=== PATIENT | male | born 1955 | race Caucasian/White ===

== ENCOUNTER → 2021-02-05 14:37 | Outpatient (CLI) | payer OTHER, SELFPAY ==
[2021-02-05 15:41] LABS: INR 1.5 (0.9-1.3); Prothrombin Time 16.8 SECONDS (10.1-12.7)
[2021-02-05 15:44] LABS: PTT Partial Thromboplastin Tim 42 SECONDS (26.4-36.2)
[2021-02-05 16:26] LABS: Alanine Aminotransferase 46 IU/L (<50); Albumin 4.7 g/dL (3.5-5.0); Albumin Globulin Ratio 1.7 (1.0-2.8); Alkaline Phosphatase 90 U/L (38-126); Aspartate Aminotransferase 43 IU/L (17-59); BUN Creatinine Ratio 21.2 (6-22); Bilirubin Total 0.6 mg/dL (0.2-1.3); Blood Urea Nitrogen 21 mg/dL (9-20); Calcium 9.9 mg/dL (8.4-10.2); Carbon Dioxide 28 mmol/L (22-32); Chloride 101 mmol/L (98-107); Cholesterol 160 mg/dL (140-199); Estimated Glomerular Filt Rate > 60.0 mL/min (>60); Globulin 2.7 g/dL (1.7-4.1); Glucose 94 mg/dL (80-110); HDL Cholesterol 48 mg/dL (40-60); HEMOLYSIS < 15 (0-50); LDL Cholesterol Calculated 86 mg/dL (<100); Potassium 4.4 mmol/L (3.4-5.1); Sodium 139 mmol/L (137-145); Total Protein 7.4 g/dL (6.3-8.2); Triglycerides 130 mg/dL (35-150)
[2021-02-05 16:32] LABS: Hemoglobin A1C% w Est Avg Glu 5.4 % (4.0-6.0)
[2021-02-05 18:22] LABS: Creatinine Urine Random 96.8 mg/dL
[2021-02-05 18:30] LABS: Microalbumin Urine Random < 0.6 mg/dL (0-1.6)
[2021-02-11 12:39] LABS: Antithrombin Activity 120 % (75-135); Antithrombin Antigen 89 % (72-124); Protein C-Functional 125 % (73-180)
[2021-02-16 11:26] LABS: Cardiolipin IgA Negative
== END ==
PROVIDERS: PCP Family Medicine; Referring Provider Family Medicine; Visit Provider Family Medicine
DX: E78.5 Hyperlipidemia, unspecified (principal); I10 Essential (primary) hypertension; I82.419 Acute embolism and thrombosis of unspecified femoral vein
CPT/HCPCS: 36415; 80053; 80061; 81241; 82043; 82570; 83036; 83520; 85300; 85301; 85303; 85610; 85730; 86147

== ENCOUNTER 2021-04-04 09:25 | Emergency (ER) | payer OTHER, SELFPAY ==
[2021-04-04 09:45] VITALS: BP 170/95; PULSE 73; RESP 16; TEMP 36.6; O2SAT 96
[2021-04-04] MEDS: ONDANSETRON 4 MG/2 ML INJ IV ×2 (09:52→11:19)
[2021-04-04] MEDS: SODIUM CHLORIDE 0.9% 1,000 ML 1000 ML IV (09:52)
[2021-04-04 10:06] LABS: INR 1.5 (0.9-1.3); Prothrombin Time 16.8 SECONDS (10.1-12.7)
[2021-04-04 10:09] LABS: PTT Partial Thromboplastin Tim 41 SECONDS (26.4-36.2)
[2021-04-04] MEDS: LIDOCAINE 2% 7 ML in SODIUM CHLORIDE 0.9% 50 ML 342 ML IV (10:10)
[2021-04-04 10:12] LABS: Alanine Aminotransferase 39 IU/L (<50); Albumin 4.5 g/dL (3.5-5.0); Albumin Globulin Ratio 1.6 (1.0-2.8); Alkaline Phosphatase 77 U/L (38-126); Aspartate Aminotransferase 38 IU/L (17-59); BUN Creatinine Ratio 21.4 (6-22); Bilirubin Total 0.6 mg/dL (0.2-1.3); Blood Urea Nitrogen 24 mg/dL (9-20); Calcium 9.2 mg/dL (8.4-10.2); Carbon Dioxide 23 mmol/L (22-32); Chloride 108 mmol/L (98-107); Estimated Glomerular Filt Rate > 60.0 mL/min (>60); Globulin 2.8 g/dL (1.7-4.1); Glucose 116 mg/dL (80-110); HEMOLYSIS < 15 (0-50); Lipase 123 U/L (23-300); Potassium 4.4 mmol/L (3.4-5.1); Sodium 140 mmol/L (137-145); Total Protein 7.3 g/dL (6.3-8.2)
[2021-04-04 10:13] LABS: Add Manual Diff / Slide Review NO; Basophils Absolute Auto 100 /uL (0-100); Basophils Percent Auto 0.9 % (0-2); Eosinophils Absolute Auto 300 /uL (0-450); Eosinophils Percent Auto 4.2 % (2-4); Hematocrit 42.6 % (41-53); Hemoglobin 14.5 g/dL (13.5-17.5); Lymphocytes Absolute Auto 1300 /uL (1100-4500); Lymphocytes Percent Auto 20.7 % (25-40); Mean Corpuscular Volume 100.1 fL (80-100); Monocytes Absolute Auto 600 /uL (0-900); Monocytes Percent Auto 9.1 % (3-14); Neutrophils Absolute Auto 4200 /uL (1500-7000); Neutrophils Percent Auto 65.1 % (50-75); Platelet Count 206 X10^3/uL (150-400); Red Blood Cell Count 4.25 X10^6/uL (4.5-5.9); Red Cell Distribution Width 12.8 % (11.6-14.8); White Blood Cell Count 6.5 X10^3/uL (4.5-11.0)
[2021-04-04] MEDS: HYDROMORPHONE 0.5 MG INJ IV ×2 (11:18→12:39)
--- NOTE | 2021-04-04 11:42 | DI.CT.S_ITS ---
PROCEDURE: CT KIDNEY URETER BLADDER (KUB) INDICATIONS: kidney stone TECHNIQUE: Noncontrast 5 mm thick sections acquired from the diaphragms to the symphysis. 5 mm thick coronal and sagittal reformats were then performed. For radiation dose reduction, the following was used: automated exposure control, adjustment of mA and/or kV according to patient size. COMPARISON: None. FINDINGS: Image quality: Excellent. Lung bases: Lung bases are clear. Heart size is normal. Urinary system: There is a 3 mm obstructing stone seen involving the left ureterovesicular junction. There is associated moderate left-sided hydroureter and hydronephrosis. Moderate left-sided perinephric fat stranding is seen. Nonobstructing bilateral renal stones are seen, which measure up to 6 mm on the left and up to 2 mm on the right. No right-sided hydronephrosis is seen. Both kidneys are normal in size. Bladder wall thickness is normal; no calcified bladder stones. Other solid organs: Liver is normal in size. Gallbladder wall is not thickened. Pancreas is normal in contours. Spleen is normal in size. No adrenal nodules. Peritoneum and bowel: Unenhanced bowel loops demonstrate normal wall thickness and caliber. No free fluid or air. A normal appendix is incidentally noted. Nodes and vessels: No retroperitoneal or mesenteric adenopathy by size criteria. Aorta and inferior vena cava are normal in caliber. Abdominal wall: A mild periumbilical hernia is seen, containing fat. Pelvis: No free pelvic fluid. No inguinal adenopathy. Bilateral fat containing inguinal hernias are seen, right larger than left. Bones: No suspicious bony lesions. No vertebral body compression fractures. Mild levoconvex scoliotic curvature is noted. Age-appropriate bony degenerative changes are seen. This patient has transitional lumbar anatomy. For the purposes of this examination, the level with the last well-developed disc space is considered to be L5-S1. By this numbering, the L5 level is transitional and highly sacralized on the left side. No ribs are seen associated with the T12 level. IMPRESSION: 3 mm obstructing stone at the left ureterovesicular junction. There is moderate left-sided hydroureter and hydronephrosis. Left-sided perinephric fat stranding is also seen. Nonobstructing bilateral renal stones are seen. 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 Dictated by: Low Bejarano M.D. on 04/04/2021 at 12:19 Approved by: Low Bejarano M.D. on 04/04/2021 at 12:24
--- NOTE | 2021-04-04 12:16 | ED.MALEGU ---
HPI - Male Genitourinary General Chief complaint: Urogenital-Male Stated complaint: kidney stones Time Seen by Provider: 04/04/21 11:56 Source: patient and family () Mode of arrival: Ambulatory Limitations: no limitations History of Present Illness HPI Narrative: This is a 66-year-old male who comes in with left flank pain radiating to the abdomen that started overnight suddenly patient has a history of hypertension, dyslipidemia and is on Xarelto for DVT that was diagnosed show about a month and a half ago. 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 Patient also states he had had a groin pull about 6 months prior and had significant ecchymosis and bruising at that time which he suspected was likely cause. This was in his right lower extremity. Patient is not having any pain in his left lower extremity today. Patient states that he has been afebrile. He has nausea and vomiting with his peak pain or when he tried to take being drink of water. Patient states he is not nauseated at this time. He had some pain medication here in the department including lidocaine followed by Dilaudid which has improved his pain but he occasionally has waves to level 5 intermittently. Patient denies any testicular pain. He denies any pain radiating down his leg. Patient denies any issues with bowel movements. He denies any new urinary symptoms otherwise. Patient states he has had kidney stones in the past 5-10 years ago intermittently. He he has not had any prior surgical intervention. He has never followed with urologist. He sees Dr. Duran for his primary care. Related Data Home Medications Medication Instructions Recorded Confirmed atorvastatin 40 mg tablet 40 mg PO QPM 11/27/20 02/26/21 vit C 250 mg-vit E 200 unit-zinc cap PO 11/27/20 02/26/21 ox 12.5 xq-ascoyk-awyeln-zeax capsule rivaroxaban 15 mg tablet 15 mg PO DAILY 02/05/21 02/26/21 Previous Rx's Medication Instructions Recorded lisinopril 20 1 tab PO DAILY #90 tab 11/27/20 mg-hydrochlorothiazide 12.5 mg tablet pantoprazole 40 mg tablet,delayed 40 mg PO DAILY #30 tab 01/22/21 release rivaroxaban 20 mg tablet 20 mg PO QPM #90 tab 02/05/21 ondansetron HCl [Zofran] 4 mg PO Q6H PRN #10 tab 04/04/21 oxycodone 5 mg PO Q6H PRN #14 tab 04/04/21 tamsulosin [Flomax] 0.4 mg PO DAILY #7 cap 04/04/21 Allergies Allergy/AdvReac Type Severity Reaction Status Date / Time No Known Drug Allergies Allergy Verified 04/04/21 09:47 Review of Systems Review of Systems ROS Unobtainable: All systems reviewed & are unremarkable except as noted in HPI and below Patient History Medical History Dvt femoral (deep venous thrombosis) GERD (gastroesophageal reflux disease) Hyperlipidemia Hypertension 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 HEENT: Head normocephalic, atraumatic, EOMI, pupils reactive, face symmetric, moist mucous membranes NECK: Supple, full range of motion CARDIOVASCULAR: Regular rate and rhythm without murmurs, rubs or gallops. RESPIRATORY: Breath sounds equal bilaterally, no wheezes rales or rhonchi. ABDOMEN: Soft, nontender. Normoactive bowel sounds all 4 quadrants. No guarding or rebound, rigidity, no mass : No CVA tenderness bilaterally EXTREMITIES: Normal range of motion, no clubbing or edema. Neurovascularly intact. NEUROLOGICAL: Cranial nerves II through XII grossly intact. Moving all extremities SKIN: Warm, dry, no petechiae, no rashes or lesions. Initial Vital Signs Initial Vital Signs: Vital Signs Temperature 97.8 F 04/04/21 09:45 Pulse Rate 73 04/04/21 09:45 Respiratory Rate 16 04/04/21 09:45 Blood Pressure 170/95 H 04/04/21 09:45 Pulse Oximetry 96 04/04/21 09:45 Course Orders Ordered: ED Orders 04/04/21 09:52 Complete Blood Count AUTO DIFF Stat Comprehensive Metabolic Panel Stat Lipase Stat Partial Thromboplastin Time Stat Prothrombin Time INR Stat 04/04/21 10:45 Urine Microscopic Stat 04/04/21 11:42 CT kidney ureter bladder (KUB) Stat Discontinued Medications Hydromorphone HCl (Hydromorphone 0.5 Mg Inj) 0.5 mg IV NOW ONE Stop: 04/04/21 11:05 Last Admin: 04/04/21 11:18 Dose: 0.5 mg Documented by: BOB Hydromorphone HCl (Hydromorphone 0.5 Mg Inj) 0.5 mg IV NOW ONE Stop: 04/04/21 12:27 Last Admin: 04/04/21 12:39 Dose: 0.5 mg Documented by: BOB Sodium Chloride (Normal Saline 0.9%) 1,000 mls @ 1,000 mls/hr IV BOLUS ONE Stop: 04/04/21 10:46 Last Infusion: 04/04/21 11:00 Dose: 0 mls/hr Documented by: Admin: 04/04/21 09:52 Dose: 1,000 mls/hr Documented by: THERESA Lidocaine HCl 7 ml/ Sodium (Chloride) 57 mls @ 342 mls/hr IV NOW ONE Stop: 04/04/21 10:08 Last Infusion: 04/04/21 10:30 Dose: 0 mls/hr Documented by: Admin: 04/04/21 10:10 Dose: 342 mls/hr Documented by: THERESA Ondansetron HCl (Ondansetron 4 Mg/2 Ml Inj) 4 mg IV NOW ONE Stop: 04/04/21 09:48 Last Admin: 04/04/21 09:52 Dose: 4 mg Documented by: THERESA Ondansetron HCl (Ondansetron 4 Mg/2 Ml Inj) 4 mg IV NOW ONE Stop: 04/04/21 11:05 Last Admin: 04/04/21 11:19 Dose: 4 mg Documented by: BOB Tamsulosin HCl (Tamsulosin 0.4 Mg Capsule) 0.4 mg PO NOW ONE Stop: 04/04/21 12:31 Last Admin: 04/04/21 12:39 Dose: 0.4 mg Documented by: BOB Vital Signs Vital signs: Vital Signs - 8 hr 04/04/21 12:26 04/04/21 13:52 Pulse Rate 64 70 Respiratory Rate 15 16 Blood Pressure 133/83 120/75 Pulse Oximetry 97 99 MDM - Male Genitourinary Lab Data Attestation: I reviewed the patient's lab results. Result diagrams: 04/04/21 09:52 04/04/21 09:52 Labs: Lab Results 04/04/21 04/04/21 04/04/21 Range/Units 09:52 09:52 09:52 WBC 6.5 (4.5-11.0) X10^3/uL RBC 4.25 L (4.5-5.9) X10^6/uL Hgb 14.5 (13.5-17.5) g/dL Hct 42.6 (41-53) % MCV 100.1 H (80-100) fL MCH 34.0 (26-34) PG MCHC 34.0 (30-36) % RDW 12.8 (11.6-14.8) % Plt Count 206 (150-400) X10^3/uL Neut % (Auto) 65.1 (50-75) % Lymph % (Auto) 20.7 L (25-40) % [place] % (Auto) 9.1 (3-14) % Eos % (Auto) 4.2 H (2-4) % Baso % (Auto) 0.9 (0-2) % Neut # (Auto) 4200 (2393-3323) /uL Lymph # (Auto) 1300 (1870-1343) /uL [place] # (Auto) 600 (0-900) /uL Eos # (Auto) 300 (0-450) /uL Baso # (Auto) 100 (0-100) /uL PT 16.8 H (10.1-12.7) SECONDS INR 1.5 H (0.9-1.3) APTT 41 H (26.4-36.2) SECONDS Sodium 140 (137-145) mmol/L Potassium 4.4 (3.4-5.1) mmol/L Chloride 108 H (98-107) mmol/L Carbon Dioxide 23 (22-32) mmol/L BUN 24 H (9-20) mg/dL Creatinine 1.12 (0.66-1.25) mg/dL Estimated GFR > 60.0 (>60) mL/min BUN/Creatinine Ratio 21.4 (6-22) Glucose 116 H (80-110) mg/dL Calcium 9.2 (8.4-10.2) mg/dL Total Bilirubin 0.6 (0.2-1.3) mg/dL AST 38 (17-59) IU/L ALT 39 (<50) IU/L Alkaline Phosphatase 77 (38-126) U/L Total Protein 7.3 (6.3-8.2) g/dL Albumin 4.5 (3.5-5.0) g/dL Globulin 2.8 (1.7-4.1) g/dL Albumin/Globulin Ratio 1.6 (1.0-2.8) Lipase 123 (23-300) U/L Urine RBC (0-5/HPF) Urine WBC (0-5/HPF) Urine Bacteria (None) Ur Culture Indicated? 04/04/21 Range/Units 10:45 WBC (4.5-11.0) X10^3/uL RBC (4.5-5.9) X10^6/uL Hgb (13.5-17.5) g/dL Hct (41-53) % MCV (80-100) fL MCH (26-34) PG MCHC (30-36) % RDW (11.6-14.8) % Plt Count (150-400) X10^3/uL Neut % (Auto) (50-75) % Lymph % (Auto) (25-40) % [place] % (Auto) (3-14) % Eos % (Auto) (2-4) % Baso % (Auto) (0-2) % Neut # (Auto) (1682-5052) /uL Lymph # (Auto) (5810-9883) /uL [place] # (Auto) (0-900) /uL Eos # (Auto) (0-450) /uL Baso # (Auto) (0-100) /uL PT (10.1-12.7) SECONDS INR (0.9-1.3) APTT (26.4-36.2) SECONDS Sodium (137-145) mmol/L Potassium (3.4-5.1) mmol/L Chloride (98-107) mmol/L Carbon Dioxide (22-32) mmol/L BUN (9-20) mg/dL Creatinine (0.66-1.25) mg/dL Estimated GFR (>60) mL/min BUN/Creatinine Ratio (6-22) Glucose (80-110) mg/dL Calcium (8.4-10.2) mg/dL Total Bilirubin (0.2-1.3) mg/dL AST (17-59) IU/L ALT (<50) IU/L Alkaline Phosphatase (38-126) U/L Total Protein (6.3-8.2) g/dL Albumin (3.5-5.0) g/dL Globulin (1.7-4.1) g/dL Albumin/Globulin Ratio (1.0-2.8) Lipase (23-300) U/L Urine RBC 5-10/hpf H (0-5/HPF) Urine WBC None seen (0-5/HPF) Urine Bacteria None seen (None) Ur Culture Indicated? Cult not indicated Urine Dip Bedside Urine Glucose Negative Bedside Urine Bilirubin - Negative Bedside Urine Ketone - Negative Urine Specific [place] 1.030 Bedside Urine Occult Blood + Bedside Urine pH 6.0 Bedside Urine Protein - Negative Bedside Urine Urobilinogen - Negative Bedside Urine Nitrite - Negative Bedside Urine Leukocytes - Negative Esterase Imaging Data CT scan - abdomen/pelvis: Radiologist's Impression: Melchor Miller 66 M [address] Scan ReportSigned Patient: Melchor Miller BMR#: [id number]: [id number]:[id number]/Sex: 66 / MDate of Service: 04/04/21Loc: EDAccession Number: [id number] Procedure: CT kidney ureter bladder (KUB) Ordering Provider: Ciera Sofia D.O. PROCEDURE: CT KIDNEY URETER BLADDER (KUB) INDICATIONS: kidney stone TECHNIQUE: Noncontrast 5 mm thick sections acquired from the diaphragms to the symphysis. 5 mm thick coronal and sagittal reformats were then performed. For radiation dose reduction, the following was used: automated exposure control, adjustment of mA and/or kV according to patient size. COMPARISON: None. FINDINGS: Image quality: Excellent. Lung bases: Lung bases are clear. Heart size is normal. Urinary system: There is a 3 mm obstructing stone seen involving the left ureterovesicular junction. There is associated moderate left-sided hydroureter and hydronephrosis. Moderate left-sided perinephric fat stranding is seen. Nonobstructing bilateral renal stones are seen, which measure up to 6 mm on the left and up to 2 mm on the right. No right-sided hydronephrosis is seen. Both kidneys are normal in size. Bladder wall thickness is normal; no calcified bladder stones. Other solid organs: Liver is normal in size. Gallbladder wall is not thickened. Pancreas is normal in contours. Spleen is normal in size. No adrenal nodules. Peritoneum and bowel: Unenhanced bowel loops demonstrate normal wall thickness and caliber. No free fluid or air. A normal appendix is incidentally noted. Nodes and vessels: No retroperitoneal or mesenteric adenopathy by size criteria. Aorta and inferior vena cava are normal in caliber. Abdominal wall: A mild periumbilical hernia is seen, containing fat. Pelvis: No free pelvic fluid. No inguinal adenopathy. Bilateral fat containing inguinal hernias are seen, right larger than left. Bones: No suspicious bony lesions. No vertebral body compression fractures. Mild levoconvex scoliotic curvature is noted. Age-appropriate bony degenerative changes are seen. This patient has transitional lumbar anatomy. For the purposes of this examination, the level with the last well-developed disc space is considered to be L5-S1. By this numbering, the L5 level is transitional and highly sacralized on the left side. No ribs are seen associated with the T12 level. IMPRESSION: 3 mm obstructing stone at the left ureterovesicular junction. There is moderate left-sided hydroureter and hydronephrosis. Left-sided perinephric fat stranding is also seen. Nonobstructing bilateral renal stones are seen. 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 Dictated by: Low Bejarano M.D. on 04/04/2021 at 12:19 Approved by: Low Bejarano M.D. on 04/04/2021 at 12:24 MDM Narrative Medical decision making narrative: This is a 66-year-old male who comes in with complaint of left flank pain was sudden onset consistent with kidney stone. Patient has had a prior DVT in the last or 1 and half months and is on Xarelto. CT imaging was obtained which does show a 3 mm stone with some moderate left-sided hydroureter and hydronephrosis. And some perinephric fat standing. Patient does not have any infectious symptoms systemically and urine does not show any clear signs. Patient's pain was controlled with narcotics. He he is not a candidate for NSAIDs secondary to his Xarelto which is required for his DVT. Significant worsening of his renal function. Risk precautions were discussed with patient, urology referral and strainer given. Discharge Plan Departure Patient Disposition: Home Clinical Impression: Kidney stone on left side Instructions: DI for Kidney Stones Activity Restrictions/Additional Instructions: Follow-up with your physician in the next several days if her symptoms have not resolved. You have also been given referral to Urology. Take Flomax once daily until gone. You may take Zofran 1 tablet every 6 hours as needed for nausea. You may take Tylenol up to a 1000 mg every 8 hours as needed for pain. You may take oxycodone 1-2 tablet every 6 hours as needed for pain. Prescription to [facility] in [place] Please return for fevers greater 100.4 F, persistent vomiting, rapidly worsening or intractable pain, inability urinate lightheadedness or passing out, new swelling in her extremities, new chest pain or shortness of breath or other new or concerning symptoms. Prescriptions: New ondansetron HCl [Zofran] 4 mg tablet 4 mg PO Q6H PRN (Reason: nausea and vomiting) Qty: 10 RF: 0 tamsulosin [Flomax] 0.4 mg capsule 0.4 mg PO DAILY Qty: 7 RF: 0 oxycodone 5 mg tablet 5 mg PO Q6H PRN (Reason: pain) Qty: 14 RF: 0 No Action pantoprazole 40 mg tablet,delayed release (DR/EC) 40 mg PO DAILY Qty: 30 RF: 3 Xarelto 15 mg tablet 15 mg PO DAILY RF: 0 Xarelto 20 mg tablet 20 mg PO QPM Qty: 90 RF: 0 atorvastatin 40 mg tablet 40 mg PO QPM RF: 0 lisinopril-hydrochlorothiazide 20-12.5 mg tablet 1 tab PO DAILY Qty: 90 RF: 3 ICaps AREDS2 250 mg-200 unit -12.5 mg-1 mg capsule PO RF: 0 Referrals: Irvin Duran MD [Primary Care Provider] - Carlita Garcia MD [Physician] -
[2021-04-04 12:20] LABS: Bacteria Urine None Seen; WBC Urine None Seen (0-5/HPF)
[2021-04-04 12:26] VITALS: BP 133/83; PULSE 64; RESP 15; O2SAT 97
--- NOTE | 2021-04-04 12:29 | PC.NURSE ---
states nausea / vomiting has improved after treatment in the ED. Feels similar to previous kidney stones.
[2021-04-04] MEDS: TAMSULOSIN 0.4 MG CAPSULE PO (12:39)
[2021-04-04 12:45] LABS: Culture Indicated Urine Cult Not Indicated; RBC Urine 5-10/HPF (0-5/HPF)
[2021-04-04 13:52] VITALS: BP 120/75; PULSE 70; RESP 16; O2SAT 99
== END 2021-04-04 13:56 | disposition home or self-care (01) ==
PROVIDERS: Emergency Provider Emergency Medicine; PCP Family Medicine
DX: N20.0 Calculus of kidney (principal); Z79.01 Long term (current) use of anticoagulants
CPT/HCPCS: 36415; 74176; 80053; 81003; 81015; 83690; 85025; 85610; 85730; 96361; 96365; 96375; 96376; 99284; J1170; J2405

== ENCOUNTER → 2021-04-08 13:35 | Outpatient (CLI) | payer OTHER, SELFPAY ==
[2021-04-15 16:19] LABS: Ca oxalate monohydr 100 % (.); Size 3x3 mm (.)
== END ==
PROVIDERS: PCP Family Medicine; Referring Provider Family Medicine; Visit Provider Family Medicine
DX: N20.0 Calculus of kidney (principal)
CPT/HCPCS: 82365

== ENCOUNTER → 2021-05-22 15:41 | Outpatient (CLI) | payer OTHER, SELFPAY ==
[2021-05-25 12:40] LABS: Cardiolipin Ab IgG <9 GPL U/mL (0-14); Cardiolipin Ab IgM 18 MPL U/mL (0-12)
== END ==
PROVIDERS: PCP Family Medicine; Referring Provider Family Medicine; Visit Provider Family Medicine
DX: I82.411 Acute embolism and thrombosis of right femoral vein (principal)
CPT/HCPCS: 36415

== ENCOUNTER 2021-08-27 09:00 | Outpatient (RCR) | payer OTHER, SELFPAY ==
--- NOTE | 2021-06-15 15:24 | PT.OPPOC ---
Physical, Occupational & Speech Therapy At [facility] Current Diagnoses Other symptoms and signs involving the musculoskeletal system (06/15/21) Unspecified injury of muscle, fascia and tendon of the posterior muscle group at thigh level, right thigh, sequela (06/15/21) Visit Care Team Role Provider Type Irvin Duran MD Attending Provider Physician Primary Care Provider Referring Provider Specialty: [facility] Practice Address: [address] [place] [address], [facility] Email: [email or web address] Plan Of Care PT-OP-T Assessment and Plan Start: 06/15/21 08:37 Freq: Status: Active Protocol: Document 06/15/21 11:00 AMB (Rec: 06/15/21 13:31 AMB [id number]) Physical Therapy Assessment Rehab Potential Rehabilitation Potential Good Evaluation Complexity Number of Personal Factors/Comorbidities 1-2 Number of Body Systems Impaired 1-2 Clinical Presentation at Evaluation Stable Impairments Impairments Pain,Strength Goals Two Impairment HEP Short Term Goal (STG) Zaid will be independent and consistent with a HEP to improve his core and hamstring strength and flexibility. STG Duration 5 weeks One Impairment Strength Short Term Goal (STG) Zaid will improve his knee flexion on the right to 4+/5. STG Duration 4 weeks Group Home Goal (LTG) Zaid will improve his hamstring strength so that he can perform a single leg bridge without hamstring pain/ cramping. LTG Duration 10 weeks Assessment Summary Assessment Zaid attends physical therapy with right hamstring cramping and weakness over 1 year post hamstring tear. He will benefit from physical therapy to improve his hamstring and core strength so that he can return to his more adventerous activities like snowshoeing and running without an increase in pain. Physical Therapy Plan Frequency and Duration Frequency of Treatment 1x/Week Duration of Treatment 10 weeks Plan of Care Start Date 06/15/21 Plan of Care End Date 08/24/21 Therapeutic Interventions Therapeutic Interventions Gait Training,Home Exercise Program,Manual Therapy, Neuromuscular Re-education, Self-Care/Home Management,Soft Tissue Mobilization, Therapeutic Activities, Therapeutic Exercises Modalities Cold Pack/Ice Massage,Electric Stimulation,Hot Packs, Ultrasound Next Visit Focus/Plan Next Note Type Treatment Note Plan of Care Dates Plan of Care Start Date 06/15/21 Plan of Care End Date 08/24/21 Electronically Signed by: Shannan Mustafa, JODIE 06/15/21 0234 Please Sign and Return: I have reviewed this Plan of Care and certify that the skilled therapy services above are required to meet the patient?s needs. Physician Signature Date Printed Name and Credentials Clinical Instructor Signature Printed Name and Credentials
--- NOTE | 2021-06-15 15:24 | PT.OIE ---
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 Visit Care Team Role Provider Type Irvin Duran MD Attending Provider Physician Primary Care Provider Referring Provider Specialty: Family Practice Address: [address] [place] [address] Email: [email or web address] Physical Therapy Initial Evaluation PT-OP-A Visit Information Start: 06/15/21 08:37 Freq: Status: Active Protocol: Document 06/15/21 11:00 AMB (Rec: 06/15/21 13:31 AMB [email or web address]) Out-Patient Physical Therapy Visit Information Visit Information Visit Type Initial Evaluation Visit Start Time 11:00 Visit Stop Time 11:50 Total Visit Minutes 50 Visit Number 1 PT-OP-B Current Condition Start: 06/15/21 08:37 Freq: Status: Active Protocol: Document 06/15/21 11:00 AMB (Rec: 06/15/21 11:24 AMB [id number]) Current Condition History of Current Condition Onset Date March 2020 Current Complaints R hamstring weakness/ intermittent back pain History of Current Condition R hamstring tore in March 2020, did physical therapy for a long time and was [place] 20 [place], and then got a DVT 10 months later. Continues to get pain/cramping. Snowshoeing with lifting up was painful. Difficulty with running- feels R leg is sluggish. Pivoting away from snake was how he tore it initially. Generally feels leg is heavy/swollen/weaker, but doesn't really bother him with his hikes. 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 Treatment Goals Patient/Caregiver Goals Feel stronger Prior Functional Status Baseline Function- ADL's Independent Baseline Function- Mobility Independent Current Functional Impairments (Reported) Functional Limitations- ADL's Weakness in R hamstring with higher level activities. Cramping. Intermittent ( around once a year) low back pain. Personal Factors Other Personal Factors That May Effect hypertension, history DVT, Therapy/Recovery history LBP denies radiating sx PT-OP-C Subjective Start: 06/15/21 08:37 Freq: Status: Active Protocol: Document 06/15/21 11:00 AMB (Rec: 06/15/21 13:31 AMB [email or web address]) Patient Questionnaires Lower Extremity Functional Scale LEFS Score 66 LEFS Impairment 1 to 19% Impaired (Score 63-79 ) OP-PT Pain Assessment Comments Pain Comments 02/21 R hamstring PT-OP-J Posture/Palpation/Skin Start: 06/15/21 08:37 Freq: Status: Active Protocol: Document 06/15/21 11:00 AMB (Rec: 06/15/21 15:23 AMB [email or web address]) Palpation Assessment Location One Palpation Location Right posterior thigh Palpation Details tenderness throughout medial and lateral hamstring musculature PT-OP-K Range of Motion Start: 06/15/21 08:37 Freq: Status: Active Protocol: Document 06/15/21 11:00 AMB (Rec: 06/15/21 15:23 AMB [email or web address]) Hip Goniometric Range of Motion Hip ROM Limitations Comments SLR L 100, R 90 PT-OP-M Strength Start: 06/15/21 08:37 Freq: Status: Active Protocol: Document 06/15/21 11:00 AMB (Rec: 06/15/21 15:23 AMB [email or web address]) Hip Strength Hip Manual Muscle Testing Right Flexion (L2) 5 Normal Extension (S1) 4+ Good+ Left Flexion (L2) 5 Normal Extension (S1) 5 Normal Knee Strength Knee Manual Muscle Testing Left Flexion (S2) 5 Normal Extension (L3) 5 Normal Right Flexion (S2) 4- Good- Extension (L3) 5 Normal PT-OP-T Assessment and Plan Start: 06/15/21 08:37 Freq: Status: Active Protocol: Document 06/15/21 11:00 AMB (Rec: 06/15/21 13:31 AMB [email or web address]) Physical Therapy Assessment Rehab Potential Rehabilitation Potential Good Evaluation Complexity Number of Personal Factors/Comorbidities 1-2 Number of Body Systems Impaired 1-2 Clinical Presentation at Evaluation Stable Impairments Impairments Pain,Strength Goals Two Impairment HEP Short Term Goal (STG) Bill will be independent and consistent with a HEP to improve his core and hamstring strength and flexibility. STG Duration 5 weeks One Impairment Strength Short Term Goal (STG) Zaid will improve his knee flexion on the right to 4+/5. STG Duration 4 weeks Maple Syrup Maker Goal (LTG) Zaid will improve his hamstring strength so that he can perform a single leg bridge without hamstring pain/ cramping. LTG Duration 10 weeks Assessment Summary Assessment Zaid attends physical therapy with right hamstring cramping and weakness over 1 year post hamstring tear. He will benefit from physical therapy to improve his hamstring and core strength so that he can return to his more adventurous activities like snowshoeing and running without an increase in pain. Physical Therapy Plan Frequency and Duration Frequency of Treatment 1x/Week Duration of Treatment 10 weeks Plan of Care Start Date 06/15/21 Plan of Care End Date 08/24/21 Therapeutic Interventions Therapeutic Interventions Gait Training,Home Exercise Program,Manual Therapy, Neuromuscular Re-education, Self-Care/Home Management,Soft Tissue Mobilization, Therapeutic Activities, Therapeutic Exercises Modalities Cold Pack/Ice Massage,Electric Stimulation,Hot Packs, Ultrasound Next Visit Focus/Plan Next Note Type Treatment Note
--- NOTE | 2021-06-26 15:48 | PT.OTN ---
Current Diagnoses Other symptoms and signs involving the musculoskeletal system (06/26/21) Unspecified injury of muscle, fascia and tendon of the posterior muscle group at thigh level, right thigh, sequela (06/26/21) Physical Therapy Treatment Note PT-OP-A Visit Information Start: 06/15/21 08:37 Freq: Status: Active Protocol: Document 06/26/21 11:00 AMB (Rec: 06/26/21 15:48 AMB [email or web address]) Out-Patient Physical Therapy Visit Information Visit Information Visit Type Treatment Note Visit Start Time 11:00 Visit Stop Time 11:55 Total Visit Minutes 55 Visit Number 2 PT-OP-B Current Condition Start: 06/15/21 08:37 Freq: Status: Active Protocol: Document 06/15/21 11:00 AMB (Rec: 06/15/21 11:24 AMB [id number]) Current Condition History of Current Condition Onset Date March 2020 Current Complaints R hamstring weakness/ intermittent back pain History of Current Condition R hamstring tore in March 2020, did physical therapy for a long time and [place], and then got a DVT 10 months later. Continues to get pain/cramping. Snowshoeing with lifting up was painful. Difficulty with running- feels R leg is sluggish. Pivoting away from snake was how he tore it initially. Generally feels leg is heavy/swollen/weaker, but doesn't really bother him with his hikes. 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 Treatment Goals Patient/Caregiver Goals Feel stronger Prior Functional Status Baseline Function- ADL's Independent Baseline Function- Mobility Independent Current Functional Impairments (Reported) Functional Limitations- ADL's Weakness in R hamstring with higher level activities. Cramping. Intermittent ( around once a year) low back pain. Personal Factors Other Personal Factors That May Effect hypertension, history DVT, Therapy/Recovery history LBP denies radiating sx PT-OP-C Subjective Start: 06/15/21 08:37 Freq: Status: Active Protocol: Document 06/26/21 11:00 AMB (Rec: 06/26/21 15:48 AMB [email or web address]) OP-PT Subjective Patient Comments Patient Comments Zaid reports he is doing about the same as at [facility]. PT-OP-J Posture/Palpation/Skin Start: 06/15/21 08:37 Freq: Status: Active Protocol: Document 06/15/21 11:00 AMB (Rec: 06/15/21 15:23 AMB [email or web address]) Palpation Assessment Location One Palpation Location Right posterior thigh Palpation Details tenderness throughout medial and lateral hamstring musculature PT-OP-K Range of Motion Start: 06/15/21 08:37 Freq: Status: Active Protocol: Document 06/15/21 11:00 AMB (Rec: 06/15/21 15:23 AMB [email or web address]) Hip Goniometric Range of Motion Hip ROM Limitations Comments SLR L 100, R 90 PT-OP-M Strength Start: 06/15/21 08:37 Freq: Status: Active Protocol: Document 06/15/21 11:00 AMB (Rec: 06/15/21 15:23 AMB [email or web address]) Hip Strength Hip Manual Muscle Testing Right Flexion (L2) 5 Normal Extension (S1) 4+ Good+ Left Flexion (L2) 5 Normal Extension (S1) 5 Normal Knee Strength Knee Manual Muscle Testing Left Flexion (S2) 5 Normal Extension (L3) 5 Normal Right Flexion (S2) 4- Good- Extension (L3) 5 Normal PT-OP-Q Treatments Start: 06/15/21 08:37 Freq: Status: Active Protocol: Document 06/26/21 11:00 AMB (Rec: 06/26/21 15:48 AMB [email or web address]) Cardio Equipment Bicycle (Upright) Duration (Minutes) 5 Resistance 4 Gym Equipment Cable Column (Body Solid) Leg Curl Details unilateral Resistance 40 Reps/Time 2x10 Therapeutic Exercises Supine Exercises 2 Supine Exercise Name table top tap down Reps/Minutes 10 Comments cues for TA 1 Supine Exercise Name hip flexor/ quad stretch Reps/Minutes 30x3 Standing Exercises 1 Standing Exercise Name hamstring stretch-contract relax Comments instructed against doorway, practiced against therapist Other Exercises 1 Other Exercise Name mirtha pose with lateral stretch Reps/Minutes 30x3 Manual Therapy Treatment Other Other Manual Treatments instructed in rolling with rolling pin over quads, then foam roller for hamstring PT-OP-T Assessment and Plan Start: 06/15/21 08:37 Freq: Status: Active Protocol: Document 06/26/21 11:00 AMB (Rec: 06/26/21 15:48 AMB [email or web address]) Physical Therapy Assessment Goals Two Impairment HEP Short Term Goal (STG) Zaid will be independent and consistent with a HEP to improve his core and hamstring strength and flexibility. STG Duration 5 weeks One Impairment Strength Short Term Goal (STG) Zaid will improve his knee flexion on the right to 4+/5. STG Duration 4 weeks Support Representative Goal (LTG) Zaid will improve his hamstring strength so that he can perform a single leg bridge without hamstring pain/ cramping. LTG Duration 10 weeks Assessment Summary Assessment Zaid tolerated strengthening and stretching well. continues to have quad/ adductor cramping after hiking , will want to progress core stabilization. Physical Therapy Plan Frequency and Duration Frequency of Treatment 1x/Week Duration of Treatment 10 weeks Plan of Care Start Date 06/15/21 Plan of Care End Date 08/24/21 Therapeutic Interventions Therapeutic Interventions Gait Training,Home Exercise Program,Manual Therapy, Neuromuscular Re-education, Self-Care/Home Management,Soft Tissue Mobilization, Therapeutic Activities, Therapeutic Exercises Modalities Cold Pack/Ice Massage,Electric Stimulation,Hot Packs, Ultrasound Next Visit Focus/Plan Next Note Type Treatment Note Next Visit Plan Progress hamstring flexibility and strengthening with core stabilization as tolerated
--- NOTE | 2021-07-03 11:57 | PT.OTN ---
Current Diagnoses Other symptoms and signs involving the musculoskeletal system (07/03/21) Unspecified injury of muscle, fascia and tendon of the posterior muscle group at thigh level, right thigh, sequela (07/03/21) Physical Therapy Treatment Note PT-OP-A Visit Information Start: 06/15/21 08:37 Freq: Status: Active Protocol: Document 07/03/21 11:00 AMB (Rec: 07/03/21 11:57 AMB [id number]) Out-Patient Physical Therapy Visit Information Visit Information Visit Type Treatment Note Visit Start Time 11:00 Visit Stop Time 11:45 Total Visit Minutes 45 Visit Number 3 PT-OP-B Current Condition Start: 06/15/21 08:37 Freq: Status: Active Protocol: Document 06/15/21 11:00 AMB (Rec: 06/15/21 11:24 AMB [id number]) Current Condition History of Current Condition Onset Date March 2020 Current Complaints R hamstring weakness/ intermittent back pain History of Current Condition R hamstring tore in March 2020, did physical therapy for a long time and was [place] 20 [place], and then got a DVT 10 months later. Continues to get pain/cramping. Snowshoeing with lifting up was painful. Difficulty with running- feels R leg is sluggish. Pivoting away from snake was how he tore it initially. Generally feels leg is heavy/swollen/weaker, but doesn't really bother him with his hikes. 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 Treatment Goals Patient/Caregiver Goals Feel stronger Prior Functional Status Baseline Function- ADL's Independent Baseline Function- Mobility Independent Current Functional Impairments (Reported) Functional Limitations- ADL's Weakness in R hamstring with higher level activities. Cramping. Intermittent ( around once a year) low back pain. Personal Factors Other Personal Factors That May Effect hypertension, history DVT, Therapy/Recovery history LBP denies radiating sx PT-OP-C Subjective Start: 06/15/21 08:37 Freq: Status: Active Protocol: Document 07/03/21 11:00 AMB (Rec: 07/03/21 11:57 AMB [id number]) OP-PT Subjective Patient Comments Patient Comments Exercises are going well per pt. He has multiple questions about them. PT-OP-J Posture/Palpation/Skin Start: 06/15/21 08:37 Freq: Status: Active Protocol: Document 06/15/21 11:00 AMB (Rec: 06/15/21 15:23 AMB [email or web address]) Palpation Assessment Location One Palpation Location Right posterior thigh Palpation Details tenderness throughout medial and lateral hamstring musculature PT-OP-K Range of Motion Start: 06/15/21 08:37 Freq: Status: Active Protocol: Document 06/15/21 11:00 AMB (Rec: 06/15/21 15:23 AMB [email or web address]) Hip Goniometric Range of Motion Hip ROM Limitations Comments SLR L 100, R 90 PT-OP-M Strength Start: 06/15/21 08:37 Freq: Status: Active Protocol: Document 06/15/21 11:00 AMB (Rec: 06/15/21 15:23 AMB [email or web address]) Hip Strength Hip Manual Muscle Testing Right Flexion (L2) 5 Normal Extension (S1) 4+ Good+ Left Flexion (L2) 5 Normal Extension (S1) 5 Normal Knee Strength Knee Manual Muscle Testing Left Flexion (S2) 5 Normal Extension (L3) 5 Normal Right Flexion (S2) 4- Good- Extension (L3) 5 Normal PT-OP-Q Treatments Start: 06/15/21 08:37 Freq: Status: Active Protocol: Document 07/03/21 11:00 AMB (Rec: 07/03/21 11:57 AMB [id number]) Gym Equipment Cable Column (Body Solid) Leg Curl Details unilateral Resistance 40 Reps/Time 2x10 Therapeutic Exercises Supine Exercises 3 Supine Exercise Name single leg bridge Reps/Minutes 2x15 2 Supine Exercise Name table top tap down Reps/Minutes 10 Comments cues for TA Prone Exercises 1 Prone Exercise Name forearm plank Reps/Minutes 30 Sitting Exercises 1 Sitting Exercise Name hamstring stretch Side right Reps/Minutes 30x2 Comments cues for flat lumbar spine PT-OP-T Assessment and Plan Start: 06/15/21 08:37 Freq: Status: Active Protocol: Document 07/03/21 11:00 AMB (Rec: 07/03/21 11:57 AMB [id number]) Physical Therapy Assessment Assessment Summary Assessment Bill tolerated 40# hamstring curl on left easily, but was challenged on the right, continued pt education regarding sacrilization of lumbar spine and dvt history. Physical Therapy Plan Next Visit Focus/Plan Next Note Type Treatment Note Next Visit Plan Progress hamstring flexibility and strengthening with core stabilization as tolerated
--- NOTE | 2021-07-14 15:23 | PT.OTN ---
Current Diagnoses Other symptoms and signs involving the musculoskeletal system (07/14/21) Unspecified injury of muscle, fascia and tendon of the posterior muscle group at thigh level, right thigh, sequela (07/14/21) Physical Therapy Treatment Note PT-OP-A Visit Information Start: 06/15/21 08:37 Freq: Status: Active Protocol: Document 07/14/21 09:00 AMB (Rec: 07/14/21 10:38 AMB [id number]) Out-Patient Physical Therapy Visit Information Visit Information Visit Type Treatment Note Visit Start Time 09:00 Visit Stop Time 09:45 Total Visit Minutes 45 Visit Number 4 PT-OP-B Current Condition Start: 06/15/21 08:37 Freq: Status: Active Protocol: Document 06/15/21 11:00 AMB (Rec: 06/15/21 11:24 AMB [id number]) Current Condition History of Current Condition Onset Date March 2020 Current Complaints R hamstring weakness/ intermittent back pain History of Current Condition R hamstring tore in March 2020, did physical therapy for a long time and was hiking in the [place] 20 minutes, and then got a DVT 10 months later. Continues to get pain/cramping. Snowshoeing with lifting up was painful. Difficulty with running- feels R leg is sluggish. Pivoting away from snake was how he tore it initially. Generally feels leg is heavy/swollen/weaker, but doesn't really bother him with his hikes. 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 Treatment Goals Patient/Caregiver Goals Feel stronger Prior Functional Status Baseline Function- ADL's Independent Baseline Function- Mobility Independent Current Functional Impairments (Reported) Functional Limitations- ADL's Weakness in R hamstring with higher level activities. Cramping. Intermittent ( around once a year) low back pain. Personal Factors Other Personal Factors That May Effect hypertension, history DVT, Therapy/Recovery history LBP denies radiating sx PT-OP-C Subjective Start: 06/15/21 08:37 Freq: Status: Active Protocol: Document 07/14/21 09:00 AMB (Rec: 07/14/21 10:38 AMB [id number]) OP-PT Subjective Patient Comments Patient Comments Pt went on a good hike and did ok but continues to feel leg is weak PT-OP-J Posture/Palpation/Skin Start: 06/15/21 08:37 Freq: Status: Active Protocol: Document 06/15/21 11:00 AMB (Rec: 06/15/21 15:23 AMB [email or web address]) Palpation Assessment Location One Palpation Location Right posterior thigh Palpation Details tenderness throughout medial and lateral hamstring musculature PT-OP-K Range of Motion Start: 06/15/21 08:37 Freq: Status: Active Protocol: Document 06/15/21 11:00 AMB (Rec: 06/15/21 15:23 AMB [email or web address]) Hip Goniometric Range of Motion Hip ROM Limitations Comments SLR L 100, R 90 PT-OP-M Strength Start: 06/15/21 08:37 Freq: Status: Active Protocol: Document 06/15/21 11:00 AMB (Rec: 06/15/21 15:23 AMB [email or web address]) Hip Strength Hip Manual Muscle Testing Right Flexion (L2) 5 Normal Extension (S1) 4+ Good+ Left Flexion (L2) 5 Normal Extension (S1) 5 Normal Knee Strength Knee Manual Muscle Testing Left Flexion (S2) 5 Normal Extension (L3) 5 Normal Right Flexion (S2) 4- Good- Extension (L3) 5 Normal PT-OP-Q Treatments Start: 06/15/21 08:37 Freq: Status: Active Protocol: Document 07/14/21 15:13 AMB (Rec: 07/14/21 15:23 AMB [email or web address]) Gym Equipment Cable Column (Body Solid) Leg Curl Details unilateral Resistance 40 Reps/Time 2x10 Therapeutic Exercises Supine Exercises 3 Supine Exercise Name single leg bridge Reps/Minutes 2x15 Sitting Exercises 1 Sitting Exercise Name hamstring stretch Side right Reps/Minutes 30x2 Comments cues for flat lumbar spine Standing Exercises 2 Standing Exercise Name standing single leg heel raise Reps/Minutes 10 Comments more difficult on R 1 Standing Exercise Name hamstring stretch-contract relax Comments instructed against doorway, practiced against therapist Other Exercises 1 Other Exercise Name mirtha pose with lateral stretch Reps/Minutes 30x3 PT-OP-T Assessment and Plan Start: 06/15/21 08:37 Freq: Status: Active Protocol: Document 07/14/21 15:13 AMB (Rec: 07/14/21 15:23 AMB [email or web address]) Physical Therapy Assessment Goals Two Impairment HEP Short Term Goal (STG) Bill will be independent and consistent with a HEP to improve his core and hamstring strength and flexibility. STG Duration 5 weeks One Impairment Strength Short Term Goal (STG) Zaid will improve his knee flexion on the right to 4+/5. STG Duration 4 weeks Take Away Man Goal (LTG) Zaid will improve his hamstring strength so that he can perform a single leg bridge without hamstring pain/ cramping. LTG Duration 10 weeks Assessment Summary Assessment Zaid continues to be challenged by 40# hamstring curl. Weaker on R calf as well. Added single leg heel raises to HEP. Physical Therapy Plan Frequency and Duration Frequency of Treatment 1x/Week Duration of Treatment 10 weeks Plan of Care Start Date 06/15/21 Plan of Care End Date 08/24/21 Next Visit Focus/Plan Next Note Type Treatment Note Next Visit Plan Progress hamstring flexibility and strengthening with core stabilization as tolerated
--- NOTE | 2021-08-05 10:41 | PT.OTN ---
Current Diagnoses Other symptoms and signs involving the musculoskeletal system (08/05/21) Unspecified injury of muscle, fascia and tendon of the posterior muscle group at thigh level, right thigh, sequela (08/05/21) Physical Therapy Treatment Note PT-OP-A Visit Information Start: 06/15/21 08:37 Freq: Status: Active Protocol: Document 08/05/21 09:46 AMB (Rec: 08/05/21 10:31 AMB [id number]) Out-Patient Physical Therapy Visit Information Visit Information Visit Type Treatment Note Visit Start Time 09:45 Visit Stop Time 10:30 Total Visit Minutes 45 Visit Number 5 PT-OP-B Current Condition Start: 06/15/21 08:37 Freq: Status: Active Protocol: Document 06/15/21 11:00 AMB (Rec: 06/15/21 11:24 AMB [id number]) Current Condition History of Current Condition Onset Date March 2020 Current Complaints R hamstring weakness/ intermittent back pain History of Current Condition R hamstring tore in March 2020, did physical therapy for a long time and was [email or web address] 20 [place], and then got a DVT 10 months later. Continues to get pain/cramping. Snowshoeing with lifting up was painful. Difficulty with running- feels R leg is sluggish. Pivoting away from snake was how he tore it initially. Generally feels leg is heavy/swollen/weaker, but doesn't really bother him with his hikes. 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 Treatment Goals Patient/Caregiver Goals Feel stronger Prior Functional Status Baseline Function- ADL's Independent Baseline Function- Mobility Independent Current Functional Impairments (Reported) Functional Limitations- ADL's Weakness in R hamstring with higher level activities. Cramping. Intermittent ( around once a year) low back pain. Personal Factors Other Personal Factors That May Effect hypertension, history DVT, Therapy/Recovery history LBP denies radiating sx PT-OP-C Subjective Start: 06/15/21 08:37 Freq: Status: Active Protocol: Document 08/05/21 09:46 AMB (Rec: 08/05/21 10:31 AMB [id number]) OP-PT Subjective Patient Comments Patient Comments Pt went on a hike yesterday PT-OP-J Posture/Palpation/Skin Start: 06/15/21 08:37 Freq: Status: Active Protocol: Document 06/15/21 11:00 AMB (Rec: 06/15/21 15:23 AMB [email or web address]) Palpation Assessment Location One Palpation Location Right posterior thigh Palpation Details tenderness throughout medial and lateral hamstring musculature PT-OP-K Range of Motion Start: 06/15/21 08:37 Freq: Status: Active Protocol: Document 06/15/21 11:00 AMB (Rec: 06/15/21 15:23 AMB [email or web address]) Hip Goniometric Range of Motion Hip ROM Limitations Comments SLR L 100, R 90 PT-OP-M Strength Start: 06/15/21 08:37 Freq: Status: Active Protocol: Document 06/15/21 11:00 AMB (Rec: 06/15/21 15:23 AMB [email or web address]) Hip Strength Hip Manual Muscle Testing Right Flexion (L2) 5 Normal Extension (S1) 4+ Good+ Left Flexion (L2) 5 Normal Extension (S1) 5 Normal Knee Strength Knee Manual Muscle Testing Left Flexion (S2) 5 Normal Extension (L3) 5 Normal Right Flexion (S2) 4- Good- Extension (L3) 5 Normal PT-OP-Q Treatments Start: 06/15/21 08:37 Freq: Status: Active Protocol: Document 08/05/21 09:45 AMB (Rec: 08/05/21 10:37 AMB [email or web address]) Gym Equipment Cable Column (Body Solid) Leg Curl Details unilateral Resistance 40 Reps/Time 5x10 Therapeutic Exercises Standing Exercises 3 Standing Exercise Name t band resistance to reproduce post holing, snow shoeing Resistance #4 t band Reps/Minutes 10 2 Standing Exercise Name standing single leg heel raise Reps/Minutes 2x10 Comments more difficult on R 1 Standing Exercise Name hamstring stretch-contract relax Comments instructed against doorway, practiced against therapist PT-OP-T Assessment and Plan Start: 06/15/21 08:37 Freq: Status: Active Protocol: Document 08/05/21 09:46 AMB (Rec: 08/05/21 10:31 AMB [id number]) Physical Therapy Assessment Goals Two Impairment HEP Short Term Goal (STG) Zaid will be independent and consistent with a HEP to improve his core and hamstring strength and flexibility. STG Duration 5 weeks One Impairment Strength Short Term Goal (STG) Zaid will improve his knee flexion on the right to 4+/5. STG Duration 4 weeks Halfway Goal (LTG) Zaid will improve his hamstring strength so that he can perform a single leg bridge without hamstring pain/ cramping. LTG Duration 10 weeks Assessment Summary Assessment Improved hamstring curl today, was able to do 5 sets of 10 instead of 3 sets today. Provided extensive education in anatomy of pain, rehab goals. Physical Therapy Plan Next Visit Focus/Plan Next Note Type Treatment Note Next Visit Plan Progress hamstring flexibility and strengthening with core stabilization as tolerated
--- NOTE | 2021-08-27 14:05 | PT.OPPOC ---
Physical, Occupational & Speech Therapy At [facility] Current Diagnoses Other symptoms and signs involving the musculoskeletal system (08/27/21) Unspecified injury of muscle, fascia and tendon of the posterior muscle group at thigh level, right thigh, sequela (08/27/21) Visit Care Team Role Provider Type Irvin Duran MD Attending Provider Physician Primary Care Provider Referring Provider Specialty: [facility] Address: [address] [place] [address], [facility] Email: [email or web address] Plan Of Care PT-OP-T Assessment and Plan Start: 06/15/21 08:37 Freq: Status: Active Protocol: Document 08/27/21 09:00 AMB (Rec: 08/27/21 09:45 AMB [id number]) Physical Therapy Assessment Goals Two Impairment HEP Short Term Goal (STG) Zaid will be independent and consistent with a HEP to improve his core and hamstring strength and flexibility. STG Duration MET One Impairment Strength Short Term Goal (STG) Zaid will improve his knee flexion on the right to 4+/5. STG Duration MET [employer] Goal (LTG) Zaid will improve his hamstring strength so that he can perform a single leg bridge without hamstring pain/ cramping. LTG Duration PROGRESS MADE- can do this about 75% of the time Assessment Summary Assessment Zaid is doing well with his exercises and will need to continue his HEP to progress his hamstring and calf strengthening. In his daily activities his hamstring does not really bother him, but he is wondering how he will be able to progress his hiking/ snowshoeing. After continued education in exercise progression he agrees that he is ready to be independent with his program, he is not exactly back to his prior level of functioning, but he feels confident in his ability to continue his exercises from here. Physical Therapy Plan Frequency and Duration Frequency of Treatment 1x/Week Duration of Treatment 1 week Plan of Care Start Date 08/27/21 Plan of Care End Date 09/03/21 Therapeutic Interventions Therapeutic Interventions Gait Training,Home Exercise Program,Manual Therapy, Neuromuscular Re-education, Self-Care/Home Management,Soft Tissue Mobilization, Therapeutic Activities, Therapeutic Exercises Modalities Cold Pack/Ice Massage,Electric Stimulation,Hot Packs, Ultrasound Discharge Physical Therapy Discharge Reasons Goals Met Next Visit Focus/Plan Next Note Type Treatment Note Plan of Care Dates Plan of Care Start Date 08/27/21 Plan of Care End Date 09/03/21 Electronically Signed by: Shannan Mustafa, PT 08/28/21 0810 Please Sign and Return: I have reviewed this Plan of Care and certify that the skilled therapy services above are required to meet the patient?s needs. Physician Signature Date Printed Name and Credentials Clinical Instructor Signature Printed Name and Credentials
--- NOTE | 2021-08-27 14:05 | PT.OTN ---
Current Diagnoses Other symptoms and signs involving the musculoskeletal system (08/27/21) Unspecified injury of muscle, fascia and tendon of the posterior muscle group at thigh level, right thigh, sequela (08/27/21) Physical Therapy Treatment Note PT-OP-A Visit Information Start: 06/15/21 08:37 Freq: Status: Active Protocol: Document 08/27/21 09:00 AMB (Rec: 08/27/21 09:45 AMB [id number]) Out-Patient Physical Therapy Visit Information Visit Information Visit Type Treatment Note Visit Start Time 09:00 Visit Stop Time 09:45 Total Visit Minutes 45 Visit Number 6 PT-OP-B Current Condition Start: 06/15/21 08:37 Freq: Status: Active Protocol: Document 06/15/21 11:00 AMB (Rec: 06/15/21 11:24 AMB [id number]) Current Condition History of Current Condition Onset Date March 2020 Current Complaints R hamstring weakness/ intermittent back pain History of Current Condition R hamstring tore in March 2020, did physical therapy for a long time and was hiking in the [employer] [place] 20 minutes, and then got a DVT 10 months later. Continues to get pain/cramping. Snowshoeing with lifting up was painful. Difficulty with running- feels R leg is sluggish. Pivoting away from snake was how he tore it initially. Generally feels leg is heavy/swollen/weaker, but doesn't really bother him with his hikes. 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 Treatment Goals Patient/Caregiver Goals Feel stronger Prior Functional Status Baseline Function- ADL's Independent Baseline Function- Mobility Independent Current Functional Impairments (Reported) Functional Limitations- ADL's Weakness in R hamstring with higher level activities. Cramping. Intermittent ( around once a year) low back pain. Personal Factors Other Personal Factors That May Effect hypertension, history DVT, Therapy/Recovery history LBP denies radiating sx PT-OP-C Subjective Start: 06/15/21 08:37 Freq: Status: Active Protocol: Document 08/27/21 09:00 AMB (Rec: 08/27/21 13:52 AMB [email or web address]) OP-PT Subjective Patient Comments Patient Comments Zaid attends physical therapy stating he has gone on a recent hike and that went well . HE feels like his hamstring is very flexible now, but the strength is not quite equal. PT-OP-J Posture/Palpation/Skin Start: 06/15/21 08:37 Freq: Status: Active Protocol: Document 06/15/21 11:00 AMB (Rec: 06/15/21 15:23 AMB [email or web address]) Palpation Assessment Location One Palpation Location Right posterior thigh Palpation Details tenderness throughout medial and lateral hamstring musculature PT-OP-K Range of Motion Start: 06/15/21 08:37 Freq: Status: Active Protocol: Document 08/27/21 09:00 AMB (Rec: 08/27/21 13:58 AMB [email or web address]) Hip Goniometric Range of Motion Hip ROM Limitations Comments SLR: L 100, R 110 PT-OP-M Strength Start: 06/15/21 08:37 Freq: Status: Active Protocol: Document 08/27/21 09:00 AMB (Rec: 08/27/21 13:58 AMB [email or web address]) Knee Strength Knee Manual Muscle Testing Left Flexion (S2) 5 Normal Extension (L3) 5 Normal Right Flexion (S2) 4+ Good+ Extension (L3) 5 Normal Comments Pt did have cramping in R leg with MMT but not in the L PT-OP-Q Treatments Start: 06/15/21 08:37 Freq: Status: Active Protocol: Document 08/27/21 09:00 AMB (Rec: 08/27/21 13:52 AMB [email or web address]) Gym Equipment Cable Column (Body Solid) Leg Curl Details unilateral Resistance 50 Reps/Time 3x10 Therapeutic Exercises Supine Exercises 2 Supine Exercise Name table top tap down Reps/Minutes 10 Comments cues for TA 1 Supine Exercise Name hip flexor/ quad stretch Reps/Minutes 30x3 Standing Exercises 2 Standing Exercise Name standing single leg heel raise Reps/Minutes 2x10 Comments more difficult on R 1 Standing Exercise Name hamstring stretch-contract relax Comments instructed against doorway, practiced against therapist PT-OP-T Assessment and Plan Start: 06/15/21 08:37 Freq: Status: Active Protocol: Document 08/27/21 09:00 AMB (Rec: 08/27/21 09:45 AMB [id number]) Physical Therapy Assessment Goals Two Impairment HEP Short Term Goal (STG) Zaid will be independent and consistent with a HEP to improve his core and hamstring strength and flexibility. STG Duration MET One Impairment Strength Short Term Goal (STG) Zaid will improve his knee flexion on the right to 4+/5. STG Duration MET Intermediate Goal (LTG) Zaid will improve his hamstring strength so that he can perform a single leg bridge without hamstring pain/ cramping. LTG Duration PROGRESS MADE- can do this about 75% of the time Assessment Summary Assessment Zaid is doing well with his exercises and will need to continue his HEP to progress his hamstring and calf strengthening. In his daily activities his hamstring does not really bother him, but he is wondering how he will be able to progress his hiking/ snowshoeing. After continued education in exercise progression he agrees that he is ready to be independent with his program, he is not exactly back to his prior level of functioning, but he feels confident in his ability to continue his exercises from here. Physical Therapy Plan Discharge Physical Therapy Discharge Reasons Goals Met Next Visit Focus/Plan Next Note Type Treatment Note
== END 2021-09-02 09:17 ==
LOC: PHYS 09:00
PROVIDERS: PCP Family Medicine; Referring Provider Family Medicine; Visit Provider Family Medicine
DX: R29.898 Other symptoms and signs involving the musculoskeletal system (principal); S76.301S Unspecified injury of muscle, fascia and tendon of the posterior muscle group at thigh level, right thigh, sequela
CPT/HCPCS: 97110; 97140; 97161

== ENCOUNTER → 2021-09-16 09:19 | Outpatient (CLI) | payer OTHER, SELFPAY ==
[2021-09-18 10:25] LABS: Cardiolipin Ab IgG <9 GPL U/mL (0-14); Cardiolipin Ab IgM 28 MPL U/mL (0-12)
[2021-09-19 05:27] LABS: Dil Russell Viper Venom Conf 1.4 ratio (0.8-1.2); Dilute Russell Viper Venom 67.1 sec (0.0-47.0); Dilute Russell Viper Venom Mix 49.8 sec (0.0-40.4); Lupus Reflex Interpretation Comment: (.); PTT-LA 37.2 sec (0.0-51.9)
== END ==
PROVIDERS: PCP Family Medicine; Referring Provider Internal Medicine Medical Oncology; Visit Provider Internal Medicine Medical Oncology
DX: I82.419 Acute embolism and thrombosis of unspecified femoral vein (principal)
CPT/HCPCS: 36415; 85598; 85613

== ENCOUNTER → 2021-10-02 15:21 | Outpatient (CLI) | payer OTHER, SELFPAY ==
[2021-10-02 16:14] LABS: COVID19 -Nasal RAPID Negative (Negative)
== END ==
PROVIDERS: PCP Family Medicine; Visit Provider Physician Assistant
DX: Z20.822 Contact with and (suspected) exposure to COVID-19 (principal)
CPT/HCPCS: 87635

== ENCOUNTER 2022-02-05 13:27 | Emergency (ER) | payer OTHER, SELFPAY ==
[2022-02-05 13:43] VITALS: BP 159/83; PULSE 70; RESP 22; TEMP 37.1; O2SAT 98; BMI 32.1
--- NOTE | 2022-02-05 13:50 | DI.US.S_ITS ---
PROCEDURE: US PERIPH VENOUS LOW EXTREM RT INDICATIONS: CALF PAIN HX OF DVT TECHNIQUE: Real-time imaging, as well as color and pulse Doppler interrogation, were performed of the lower extremity deep veins from the inguinal ligament to the popliteal fossa. COMPARISON: [facility], US, US VENOUS LOWER EXTREMITY DOPPLER RIGHT, 02/02/2021, 16:37. FINDINGS: Common femoral vein, proximal and mid femoral vein, and per fundal are patent. Greater saphenous vein is patent. There is thrombus in the distal femoral vein and popliteal vein. Thrombi appear nonocclusive. Collateral veins are noted. (Thrombus was previously seen in the mid and distal femoral veins, popliteal vein, and posterior tibial vein on ultrasound 02/02/2021). IMPRESSION: Likely chronic right lower extremity DVT in the distal femoral and popliteal veins. This appears decreased in size compared to last year. Comment: Findings were discussed with Pavan Rodriguez at the time of dictation. Dictated by: Ruddy Calderon M.D. on 02/05/2022 at 14:31 Approved by: Ruddy Calderon M.D. on 02/05/2022 at 14:37
--- NOTE | 2022-02-05 14:48 | ED.EXTPRO ---
HPI - Extremity Problem <JESSICA Rojas - Last Filed: 02/05/22 20:56> General Chief complaint: Extremity Problem,Nontraumatic Stated complaint: right leg sore/hx DVT Time Seen by Provider: 02/05/22 14:28 Source: patient Mode of arrival: Family Vehicle History of Present Illness HPI Narrative: This is a 66-year-old male presents to the emergency department with a chronic DVT in his right leg seeking a ultrasound for occlusive thrombus possibility. Patient has been on Xarelto for 1 year since being diagnosed with a femoral and popliteal deep vein thrombosis on the right. Patient states that he has had swelling of his right lower extremity daily for the last year. He feels like it has been worse over the last 2-3 months although he denies any sensation changes distal to his knee. He denies any foot swelling, states that he has swelling around his calf at the end of the day, and some edema at the sock line. He denies any redness to his skin or any open wounds, he denies any fever, alteration in his gait, knee pain, or changes to his range of motion. Patient states that he has been on Xarelto for 1 year without any changes to his medication. His gauge and weigh machine operator is Dr. Padron, his primary care provider is Dr. Duran. 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 Related Data Home Medications Medication Instructions Recorded Confirmed atorvastatin 40 mg tablet 40 mg PO QPM 11/27/20 02/02/22 vit C 250 mg-vit E 200 unit-zinc 1 cap PO DAILY 11/27/20 02/02/22 ox 12.5 [id number] capsule (ICaps AREDS2) Previous Rx's Medication Instructions Recorded rivaroxaban 20 mg tablet (Xarelto) See Rx Instructions .ROUTE 11/17/21 .COMPLEX #90 tab lisinopril 20 See Rx Instructions .ROUTE 01/18/22 mg-hydrochlorothiazide 25 mg tablet .COMPLEX #90 tab Allergies Allergy/AdvReac Type Severity Reaction Status Date / Time No Known Drug Allergies Allergy Verified 02/02/22 12:04 Review of Systems <JESSICA Rojas - Last Filed: 02/05/22 20:56> Review of Systems Narrative: General: denies fever, chills Head/Neck: denies headache, neck pain Eyes: denies visual changes, eye pain Cardio: denies chest pain, palpitations Respiratory: denies shortness of breath, cough GI: denies abdominal pain, nausea, vomiting, or diarrhea : denies dysuria, hematuria MSK: denies joint pain, muscle weakness, endorses right calf swelling for over 1 year Skin: denies rash, itching Neuro: denies numbness, tingling Patient History <JESSICA Rojas - Last Filed: 02/05/22 20:56> Medical History Acute pain of right knee Anticardiolipin antibody positive Dvt femoral (deep venous thrombosis) GERD (gastroesophageal reflux disease) Hyperlipidemia Hypertension Impingement syndrome of both shoulders Sprain of anterior cruciate ligament of right knee Ulnar nerve impingement Family History Unknown Hypertension Social History Smoking Status: Never smoker Smoking Status: Never smoker alcohol intake frequency: 0-2 drinks per day Substance Use Type: does not use Exam <JESSICA Rojas - Last Filed: 02/05/22 20:56> Narrative Exam Narrative: Independently reviewed vitals signs and nursing notes. General: cooperative, comfortable, in no acute distress, well developed and well groomed Head: atraumatic, symmetrical facial expressions Neck: supple, atraumatic, without lymphadenopathy. Eyes: pupils equal round and reactive, EOMI, conjunctiva normal Nose: nares patent, no rhinorrhea Cardiovascular: regular rate and rhythm, right lower extremity is edematous around his calf, there is no dependent edema around his foot, no erythema, warm extremities Respiratory: normal effort, able to speak in complete sentences, no audible wheezing, stridor, or rales. No retractions or tachypnea. GI: abdomen soft, nontender to palpation, nondistended, no masses, no exquisite tenderness with exam, without guarding or rebound. MSK: moves all extremities, ambulatory w/steady gait, neurovascularly intact, no weakness Skin: brisk capillary refill, no rash, no erythema Neuro: normal speech and cognition, A&O x3, normal tone Psych: mental status is grossly normal, congruent mood, normal affect, pleasant and cooperative Initial Vital Signs Initial Vital Signs: Vital Signs Temperature 98.7 F 02/05/22 13:43 Pulse Rate 70 02/05/22 13:43 Respiratory Rate 22 02/05/22 13:43 Blood Pressure 159/83 H 02/05/22 13:43 Pulse Oximetry 98 02/05/22 13:43 Course <JESSICA Rojas - Last Filed: 02/05/22 20:56> Orders Ordered: ED Orders 02/05/22 13:50 US periph venous low extrem rt Stat Vital Signs Vital signs: Vital Signs - 8 hr 02/05/22 13:43 Temperature 98.7 F Pulse Rate 70 Respiratory Rate 22 Blood Pressure 159/83 H Pulse Oximetry 98 MDM - Extremity (Nontraumatic) <JESSICA Rojas - Last Filed: 02/05/22 20:56> Imaging Data US - DVT: Radiologist's Impression: PROCEDURE:? US PERIPH VENOUS LOW EXTREM RT ? INDICATIONS:? CALF PAIN HX OF DVT ? TECHNIQUE:? Real-time imaging, as well as color and pulse Doppler interrogation, were performed of the lower extremity deep veins from the inguinal ligament to the popliteal fossa.? ? COMPARISON:? [facility], , US VENOUS LOWER EXTREMITY DOPPLER RIGHT, 02/02/2021, 16:37. ? FINDINGS:? Common femoral vein, proximal and mid femoral vein, and per fundal are patent. ?Greater saphenous vein is patent. ? There is thrombus in the distal femoral vein and popliteal vein.? Thrombi appear nonocclusive.? Collateral veins are noted. ? (Thrombus was previously seen in the mid and distal femoral veins, popliteal vein, and posterior tibial vein on ultrasound 02/02/2021).? ? IMPRESSION:? Likely chronic right lower extremity DVT in the distal femoral and popliteal veins.? This appears decreased in size compared to last year. ? ? Comment: Findings were discussed with Pavan Rodriguez at the time of dictation. ? Dictated by: Ruddy Calderon M.D. on 02/05/2022 at 14:31 ? ? Approved by: Ruddy Calderon M.D. on 02/05/2022 at 14:37 ? MDM Narrative Medical decision making narrative: This is a 66-year-old male who has a chronic DVT of his femoral and popliteal vein of his right leg, he has been on Xarelto for 1 year for this, he has had increased swelling around his right calf over the last 1-2 months he states. He has not had any cold sensation in his foot, denies any sensation changes, trauma, wound, fever, or pain in his right lower extremity. He states he has a anti cardiolipin antibody. Patient's gauge and weigh machine operator is Dr. Padron, his primary care provider is Dr. Duran. Ultrasound DVT of his right lower extremity today shows decrease in size of his femoral popliteal vein DVT compared with last year. Patient remains on the same dosing of Xarelto, denies any complications from this. He does not have any pain at this time, his DVTs are nonocclusive, he does have collateral flow. Encouraged patient to follow-up with his gauge and weigh machine operator and his primary care provider for any alternative therapy other than Xarelto and waiting for improvement. Patient does not have any pain with ambulation, Javier sign is negative. Patient is appropriate and amenable to discharge home. Vital signs are stable on repeat examination is unremarkable. Patient has been informed of results. Patient has been given strict return to ER precautions for any new or worsening symptoms. Patient understands to follow up closely with outpatient providers as instructed. Patient understands plan and agrees to discharge home. All questions and concerns answered at this time. Discharge Plan Departure Patient Disposition: Home Clinical Impression: Chronic deep vein thrombosis (DVT) of femoral vein Qualifiers: Laterality: right Qualified Code(s): I82.511 - Chronic embolism and thrombosis of right femoral vein Chronic deep vein thrombosis (DVT) of popliteal vein Qualifiers: Laterality: right Qualified Code(s): I82.531 - Chronic embolism and thrombosis of right popliteal vein Instructions: DI for Deep Vein Thrombosis Activity Restrictions/Additional Instructions: *You have been diagnosed with a chronic DVT in the distal femoral and popliteal veins. They have decreased in size compared to last year. This is great news, please continue taking your Xarelto as prescribed currently. The thrombi are not occlusive, you do have collateral flow. You can try compression stockings and see if that helps reduce some of the edema otherwise continue with your moderate activity, healthy lifestyle, and they should continue to go down. Thank you for trusting us with your care, your ultrasound report is printed below. Please follow-up with Dr. Duran, I have sent your chart to both Dr. Duran and Dr. Padron. *What to do: *Please continue to take your regular medications as directed. [ ] New medication prescriptions sent to your pharmacy: [ ] [ ] New medication written as a paper prescription [x ] No new medications given *Please follow up with your primary care provider in 2-3 days, call for an appointment. Let them know you were seen in the Emergency Department and that we asked that you be seen for follow-up. We will electronically transmit a record of today's note if your PCP is in our system *If you do not have a primary care provider please contact [phone] to establish care with one of the [facility] primary care providers. *Return to Emergency Department if you should have any new, worsening or concerning symptoms, such as [fever greater than 101F, chills, worsening pain, persistent vomiting or other bothersome symptoms] PROCEDURE:? US PERIPH VENOUS LOW EXTREM RT ? INDICATIONS:? CALF PAIN HX OF DVT ? TECHNIQUE:? Real-time imaging, as well as color and pulse Doppler interrogation, were performed of the lower extremity deep veins from the inguinal ligament to the popliteal fossa.? ? COMPARISON:? [facility], , US VENOUS LOWER EXTREMITY DOPPLER RIGHT, 02/02/2021, 16:37. ? FINDINGS:? Common femoral vein, proximal and mid femoral vein, and per fundal are patent. ?Greater saphenous vein is patent. ? There is thrombus in the distal femoral vein and popliteal vein.? Thrombi appear nonocclusive.? Collateral veins are noted. ? (Thrombus was previously seen in the mid and distal femoral veins, popliteal vein, and posterior tibial vein on ultrasound 02/02/2021).? ? IMPRESSION:? Likely chronic right lower extremity DVT in the distal femoral and popliteal veins.? This appears decreased in size compared to last year. ? ? Comment: Findings were discussed with Pavan Rodriguez at the time of dictation. ? Dictated by: Ruddy Calderon M.D. on 02/05/2022 at 14:31 ? ? Approved by: Ruddy Calderon M.D. on 02/05/2022 at 14:37 ? Prescriptions: No Action Xarelto 20 mg tablet See Rx Instructions .ROUTE .COMPLEX Qty: 90 3RF Dose Instruction: take 1 tablet by mouth every evening WITH EVENING MEAL Rx Instructions: take 1 tablet by mouth every evening WITH EVENING MEAL lisinopril-hydrochlorothiazide 20-25 mg tablet See Rx Instructions .ROUTE .COMPLEX Qty: 90 3RF Dose Instruction: take 1 tablet by mouth once daily Rx Instructions: take 1 tablet by mouth once daily atorvastatin 40 mg tablet 40 mg PO QPM 0RF ICaps AREDS2 250 mg-200 unit -12.5 mg-1 mg capsule 1 cap PO DAILY 0RF Referrals: Irvin Duran MD [Primary Care Provider] - Zaid Padron MD [Physician] - 5-7 days
== END 2022-02-05 15:00 | disposition home or self-care (01) ==
PROVIDERS: Emergency Provider Nurse Practitioner Critical Care Medicine; Family Provider Family Medicine; PCP Family Medicine
DX: I82.411 Acute embolism and thrombosis of right femoral vein (principal); I82.431 Acute embolism and thrombosis of right popliteal vein
CPT/HCPCS: 93971; 99281; 99283

== ENCOUNTER → 2022-02-10 18:52 | Outpatient (CLI) | payer OTHER, SELFPAY ==
--- NOTE | 2022-02-10 18:56 | DI.MRI.S_ITS ---
PROCEDURE: MR KNEE RT WO CON INDICATIONS: pain TECHNIQUE: Noncontrast sagittal PD fast spin echo and T2 fast spin echo with fat saturation, sagittal 3-D FLASH with fat saturation; coronal T1 spin echo and PD fast spin echo with fat saturation, and axial PD fast spin echo with fat saturation through the knee. COMPARISON: None. FINDINGS: Image quality: Excellent. Menisci: There is medial meniscal extrusion. Oblique tear is seen in the body and posterior horn of the medial meniscus extending to the inferior articular surface. There is tear tear of the anterior root of the medial meniscus. Lateral meniscus demonstrates normal morphology and internal signal. Cruciate ligaments: The anterior and posterior cruciate ligaments appear intact. Medial structures: The medial collateral ligament appears intact. The semimembranosus tendon insertions and meniscocapsular junction appear intact. Visualized portions of the pes anserinus tendons appear normal. No abnormal bursal fluid. Lateral structures: The lateral collateral ligament, long and short heads of the biceps femoris tendon appear intact. The popliteus tendon appears normal. Iliotibial band appears normal. Anterior structures: The quadriceps and patellar tendons appear intact. Patellar alignment is normal. No femoral trochlear dysplasia or ventral trochlear prominence. No edema in the infrapatellar fat pad. Bones and cartilage: No bone marrow contusions or fractures. Mild chondral malacia of the medial femorotibial compartment with cartilage thinning and fibrillation. Joint space: There is small knee joint effusion. There is a small Ramey's cyst. Normal appearing synovial plicae are incidentally noted. There is mild edema in the posterior lateral aspect of the joint capsule, probably caused by leaking joint fluid or ruptured synovial cyst related to the proximal tibiofibular joint. IMPRESSION: 1. Medial meniscal extrusion. There is oblique tear involving the body and posterior horn of the medial meniscus extending to the inferior articular surface. There is also tear of the anterior root of the medial meniscus. 2. Small knee joint effusion. 3. Small Ramey's cyst. 4. Edema in the posterior lateral aspect of the joint capsule, probably caused by leaking joint fluid or ruptured synovial cyst related to the proximal tibiofibular joint. 5. Chondral malacia of the medial femorotibial compartment. Dictated by: Antoine Calvillo M.D. on 02/11/2022 at 8:58 Approved by: Antoine Calvillo M.D. on 02/11/2022 at 9:12
== END ==
PROVIDERS: Family Provider Family Medicine; PCP Family Medicine; Referring Provider Family Medicine; Visit Provider Family Medicine
DX: S83.241A Other tear of medial meniscus, current injury, right knee, initial encounter (principal); M25.461 Effusion, right knee; M94.261 Chondromalacia, right knee; M71.21 Synovial cyst of popliteal space [Baker], right knee; M25.561 Pain in right knee
CPT/HCPCS: 73721

== ENCOUNTER → 2022-04-29 08:24 | Outpatient (CLI) | payer MEDICARE, OTHER, SELFPAY ==
--- NOTE | 2022-04-29 08:30 | DI.RAD.S_ITS ---
PROCEDURE: XR HIP W PEL IF DONE LT 2V INDICATIONS: chronic left hip pain TECHNIQUE: AP pelvis with lateral view(s) of the left hip(s). COMPARISON: None. FINDINGS: Bones: No fractures or dislocations. Pelvic ring appears intact. No suspicious bony lesions. [id number] bilateral degenerative hip joint space narrowing, left greater than right. Minimal periarticular osteophytes are present. No erosions. Soft tissues: The visualized bowel gas pattern is normal. No suspicious soft tissue calcifications. IMPRESSION: Bilateral hip osteoarthritis, right greater than left. Dictated by: Sybil Robles M.D. on 04/29/2022 at 10:47 Approved by: Sybil Robles M.D. on 04/29/2022 at 10:47
--- NOTE | 2022-04-29 08:30 | DI.RAD.S_ITS ---
PROCEDURE: XR FOOT RT MIN 3V INDICATIONS: bilateral foot pain TECHNIQUE: 3 views of the foot were acquired. COMPARISON: [facility], CR, XR FOOT LT MIN 3V, 04/29/2022, 8:17. FINDINGS: Bones: No fractures or dislocations. No suspicious bony lesions. Mild degenerative joint disease at intertarsal joints, tarsometatarsal joints and the 1st metatarsophalangeal joint.. Calcaneal spurring. There is a prominent os trigonum. Soft tissues: No tibiotalar joint effusion. Achilles tendon appears normal. Finding and bunionette. IMPRESSION: 1. Mild degenerative joint disease. 2. Calcaneal spurring. 3. Finding and bunionette. 4. Prominent os trigonum. Dictated by: Antoine Calvillo M.D. on 04/29/2022 at 17:22 Approved by: Antoine Calvillo M.D. on 04/29/2022 at 17:57
--- NOTE | 2022-04-29 08:30 | DI.RAD.S_ITS ---
PROCEDURE: XR FOOT LT MIN 3V INDICATIONS: bilateral foot pain TECHNIQUE: 3 views of the foot were acquired. COMPARISON: None. FINDINGS: Bones: No fractures or dislocations. No suspicious bony lesions. Mild degenerative joint disease is present. Calcaneal spurring. Soft tissues: No tibiotalar joint effusion. Achilles tendon appears normal. There is mild bunion and bunionette. IMPRESSION: 1. Mild degenerative joint disease. 2. Calcaneal spurring. 3. Bunion and bunionette. Dictated by: Antoine Calvillo M.D. on 04/29/2022 at 17:22 Approved by: Antoine Calvillo M.D. on 04/29/2022 at 17:55
== END ==
PROVIDERS: Family Provider Family Medicine; PCP Family Medicine; Referring Provider Family Medicine; Visit Provider Family Medicine
DX: M16.0 Bilateral primary osteoarthritis of hip (principal); M19.072 Primary osteoarthritis, left ankle and foot; M77.32 Calcaneal spur, left foot; M19.071 Primary osteoarthritis, right ankle and foot; M77.31 Calcaneal spur, right foot; M21.612 Bunion of left foot; M21.622 Bunionette of left foot; M21.621 Bunionette of right foot; M79.671 Pain in right foot; M79.672 Pain in left foot; M25.552 Pain in left hip; G89.29 Other chronic pain
CPT/HCPCS: 73502; 73630

== ENCOUNTER → 2022-05-29 11:56 | Outpatient (CLI) | payer MEDICARE, OTHER, SELFPAY ==
[2022-05-29 13:01] LABS: Add Manual Diff / Slide Review NO; Basophils Absolute Auto 0 /uL (0-100); Basophils Percent Auto 0.5 % (0-2); Eosinophils Absolute Auto 200 /uL (0-450); Eosinophils Percent Auto 3.5 % (2-4); Hemoglobin 14.7 g/dL (13.5-17.5); Lymphocytes Absolute Auto 1700 /uL (1100-4500); Mean Corpuscular Hemoglobin 34.7 PG (26-34); Mean Corpuscular Volume 98.9 fL (80-100); Monocytes Absolute Auto 500 /uL (0-900); Monocytes Percent Auto 9.6 % (3-14); Neutrophils Absolute Auto 3000 /uL (1500-7000); Neutrophils Percent Auto 55.4 % (50-75); Platelet Count 199 X10^3/uL (150-400); Red Blood Cell Count 4.25 X10^6/uL (4.5-5.9); Red Cell Distribution Width 12.8 % (11.6-14.8); White Blood Cell Count 5.3 X10^3/uL (4.5-11.0)
[2022-05-29 13:13] LABS: Alanine Aminotransferase 51 IU/L (<50); Albumin 4.5 g/dL (3.5-5.0); Alkaline Phosphatase 74 U/L (38-126); Aspartate Aminotransferase 43 IU/L (17-59); Bilirubin Total 0.6 mg/dL (0.2-1.3); Blood Urea Nitrogen 20 mg/dL (9-20); Calcium 9.2 mg/dL (8.4-10.2); Carbon Dioxide 25 mmol/L (22-32); Chloride 104 mmol/L (98-107); Cholesterol 153 mg/dL (140-199); Estimated Glomerular Filt Rate > 60 mL/min (>60); Globulin 2.3 g/dL (1.7-4.1); Glucose 107 mg/dL (80-110); HDL Cholesterol 41 mg/dL (40-60); HEMOLYSIS < 15 (0-50); LDL Cholesterol Calculated 91 mg/dL (<100); Potassium 4.7 mmol/L (3.4-5.1); Sodium 138 mmol/L (137-145); Total Protein 6.8 g/dL (6.3-8.2); Triglycerides 103 mg/dL (35-150)
[2022-05-29 13:40] LABS: Creatinine Urine Random 102.4 mg/dL
[2022-05-29 13:42] LABS: TSH w/ Reflex to FT4 1.64 uIU/mL (0.47-4.68)
[2022-05-29 13:44] LABS: Microalbumi Creatinin Ratio Ur 7.8 ug/mg CR (<30); Microalbumin Urine Random 0.8 mg/dL (0-1.6)
== END ==
PROVIDERS: Family Provider Family Medicine; PCP Family Medicine; Referring Provider Family Medicine; Visit Provider Family Medicine
DX: E78.5 Hyperlipidemia, unspecified (principal); G89.29 Other chronic pain; I10 Essential (primary) hypertension; M25.552 Pain in left hip; M79.671 Pain in right foot; M79.672 Pain in left foot
CPT/HCPCS: 36415; 80053; 80061; 82043; 82570; 84443; 85025

== ENCOUNTER → 2022-06-01 08:30 | Outpatient (CLI) | payer MEDICARE, OTHER, SELFPAY ==
--- NOTE | 2022-06-01 08:32 | DI.RAD.S_ITS ---
PROCEDURE: XR RIBS LT MIN 3V W CXR1V INDICATIONS: rib pain after fall TECHNIQUE: 2 views of the left ribs were acquired, along with a single view chest. COMPARISON: None. FINDINGS: Surgical changes and devices: None. Bones and chest wall: No fractures or dislocations. No suspicious bony lesions. Overlying soft tissues appear unremarkable. Lungs and pleura: No pleural effusions or pneumothorax. Lungs appear clear. Mediastinum: Mediastinal contours appear normal. Heart size is normal. IMPRESSION: No displaced fracture identified. No acute cardiothoracic abnormality. Dictated by: Henry Hobson M.D. on 06/01/2022 at 12:47 Approved by: Henry Hobson M.D. on 06/01/2022 at 12:49
--- NOTE | 2022-06-01 15:11 | DI.RAD.S_ITS ---
PROCEDURE: XR ELBOW LT MIN 3V INDICATIONS: swollen elbow TECHNIQUE: 3 views of the elbow were acquired. COMPARISON: None. FINDINGS: Bones: No fractures or dislocations. No suspicious bony lesions. Soft tissues: Soft tissue edema is present at the elbow. No suspicious soft tissue calcifications. IMPRESSION: Prominent soft tissue edema is present at the elbow. No visualized acute fracture or dislocation. However, if clinical concern and/or pain persist, short interval imaging followup in 7-10 days is recommended, as occult injury cannot be definitively excluded. Dictated by: Sybil Robles M.D. on 06/01/2022 at 15:53 Approved by: Sybil Robles M.D. on 06/01/2022 at 15:54
--- NOTE | 2022-06-01 15:11 | DI.RAD.S_ITS ---
PROCEDURE: XR WRIST LT MIN 3V INDICATIONS: painful wrist TECHNIQUE: 4 views of the wrist were acquired. COMPARISON: None. FINDINGS: Bones: No fractures or dislocations. No suspicious bony lesions. Mild radiocarpal degenerative narrowing. Scaphoid view: No visualized fracture. Soft tissues: No suspicious soft tissue calcifications. IMPRESSION: Mild radiocarpal arthritic narrowing. No visualized acute fracture or dislocation. However, if clinical concern and/or pain persist, short interval imaging followup in 7-10 days is recommended, as occult injury cannot be definitively excluded. Dictated by: Sybil Robles M.D. on 06/01/2022 at 15:53 Approved by: Sybil Robles M.D. on 06/01/2022 at 15:53
== END ==
PROVIDERS: Family Provider Family Medicine; PCP Family Medicine; Referring Provider Physician Assistant; Visit Provider Physician Assistant
DX: R07.81 Pleurodynia (principal); M25.532 Pain in left wrist; M25.522 Pain in left elbow; M25.422 Effusion, left elbow
CPT/HCPCS: 71101; 73080; 73110

== ENCOUNTER 2022-06-22 14:30 | Outpatient (RCR) | payer MEDICARE, OTHER, SELFPAY ==
--- NOTE | 2022-04-13 15:56 | PT.OIE ---
Current Diagnoses Pain in right knee (04/13/22) Sprain of anterior cruciate ligament of right knee, initial encounter (04/13/22) Past Medical History (Last Reviewed 02/05/22 @ 20:50 by JESSICA Rojas) Acute pain of right knee Anticardiolipin antibody positive Dvt femoral (deep venous thrombosis) GERD (gastroesophageal reflux disease) Hyperlipidemia Hypertension Impingement syndrome of both shoulders Sprain of anterior cruciate ligament of right knee Ulnar nerve impingement Visit Care Team Role Provider Type Irvin Duran MD Attending Provider Physician Family Provider Primary Care Provider Referring Provider Specialty: Family Practice Address: [address] [place] [address] Email: [email or web address] Physical Therapy Initial Evaluation PT-OP-A Visit Information Start: 04/13/22 09:48 Freq: Status: Active Protocol: Document 04/13/22 09:50 AMB (Rec: 04/13/22 10:11 AMB [id number]) Out-Patient Physical Therapy Visit Information Visit Information Visit Type Initial Evaluation Visit Start Time 09:45 Visit Stop Time 10:30 Total Visit Minutes 45 Visit Number 1 PT-OP-B Current Condition Start: 04/13/22 09:48 Freq: Status: Active Protocol: Document 04/13/22 09:50 AMB (Rec: 04/13/22 10:11 AMB [id number]) Current Condition History of Current Condition Onset Date January 2022 Current Complaints R knee pain History of Current Condition Carrying 100 pound load over the stairs and possibly twisted over a month ago. Orthopedist has osteoarthritis in both knees L>R. MRI said there was a meniscus tear. Has been biking on his mountain bike over smooth terrain. Has twisted the knee a couple of times, most recently 1.5 weeks ago, does feel like it regressed a bit. Initially couldn't put weight on it for about 3 days. 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 Hasn't been doing hamstring stretches as much because gets knee pain with getting on and off. Did go on a 2 mile flat hike and that was fine recently. Personal Factors Other Personal Factors That May Effect history of hamstring strain Therapy/Recovery and DVT on the right PT-OP-C Subjective Start: 04/13/22 09:48 Freq: Status: Active Protocol: Document 04/13/22 09:45 AMB (Rec: 04/14/22 13:02 AMB [id number]) Patient Questionnaires Oswestry Low Back Index Oswestry Score 6 Oswestry Impairment 1 to 19% Impaired (Score 1-19) PT-OP-G Mobility & Gait Start: 04/13/22 09:48 Freq: Status: Active Protocol: Document 04/13/22 09:45 AMB (Rec: 04/14/22 15:55 AMB [id number]) OP Mobility Evaluation Functional Movements Squats hip pain on the right limits deep squats PT-OP-K Range of Motion Start: 04/13/22 09:48 Freq: Status: Active Protocol: Document 04/13/22 09:45 AMB (Rec: 04/14/22 15:55 AMB [id number]) Knee Goniometric Range of Motion Knee ROM Limitations Comments no pain ROM testing, flexion and extension WFL PT-OP-M Strength Start: 04/13/22 09:48 Freq: Status: Active Protocol: Document 04/13/22 09:45 AMB (Rec: 04/14/22 13:02 AMB [id number]) Hip Strength Hip Manual Muscle Testing Right Flexion (L2) 4+ Good+ Extension (S1) 4 Good Abduction 4+ Good+ Knee Strength Knee Manual Muscle Testing Right Flexion (S2) 4+ Good+ Extension (L3) 4+ Good+ PT-OP-Q Treatments Start: 04/13/22 09:48 Freq: Status: Active Protocol: Document 04/13/22 09:45 AMB (Rec: 04/14/22 13:02 AMB [id number]) Therapeutic Exercises Standing Exercises fwd lunges Reps/Minutes 2x10 Comments partial range PT-OP-T Assessment and Plan Start: 04/13/22 09:48 Freq: Status: Active Protocol: Document 04/13/22 09:45 AMB (Rec: 04/14/22 13:02 AMB [id number]) Physical Therapy Assessment Rehab Potential Rehabilitation Potential Good Evaluation Complexity Number of Personal Factors/Comorbidities 1-2 Number of Body Systems Impaired 4 or More Clinical Presentation at Evaluation Stable Impairments Impairments Activity Tolerance,Functional Activities,Gait,Strength Goals Two Impairment Return to hiking Short Term Goal (STG) Bill will hike for 3 miles with elevation gain without an increase in knee pain. STG Duration 4 weeks [employer] Goal (LTG) Zaid will hike for 10 miles with elevation gain without an increase in knee pain. LTG Duration 8 weeks One Impairment Strength Short Term Goal (STG) Zaid will be independent with a HEP for R LE strengthening. STG Duration 4 weeks [facility]dc Goal (LTG) Zaid will improve his hip and knee strength to 5/5 in all planes. LTG Duration 8 weeks Assessment Summary Assessment Zaid attends physical therapy with continued pain and difficulty returning to hiking s/p meniscus tear in the context of R LE weakness 2 years s/p DVT and R hamstring strain. He is an avid hiker, and while he can hike 2 miles over flat terrain, is concerned about his ability to return to hiking over uneven terrain and hikes with a significant elevation change. He did present with calf, hamstring and gluteal weakness and will benefit from a R LE extremity strengthening program that does not flare his knee pain. Physical Therapy Plan Frequency and Duration Frequency of Treatment 2x/Week Duration of Treatment 8 weeks Plan of Care Start Date 04/13/22 Plan of Care End Date 06/13/22 Therapeutic Interventions Therapeutic Interventions Gait Training,Home Exercise Program,Joint Mobilizations, Manual Therapy,Neuromuscular Re-education,Self-Care/Home Management,Therapeutic Activities,Therapeutic Exercises Modalities Cold Pack/Ice Massage Next Visit Focus/Plan Next Note Type Treatment Note Next Visit Plan progress glute/quad strengthening closed chain
--- NOTE | 2022-04-13 15:57 | PT.OPPOC ---
Physical, Occupational & Speech Therapy At [facility] Current Diagnoses Pain in right knee (04/13/22) Sprain of anterior cruciate ligament of right knee, initial encounter (04/13/22) Visit Care Team Role Provider Type Irvin Duran MD Attending Provider Physician Family Provider Primary Care Provider Referring Provider Specialty: Family Practice Address: [address] [place] [address], [facility] Email: [email or web address] Plan Of Care PT-OP-T Assessment and Plan Start: 04/13/22 09:48 Freq: Status: Active Protocol: Document 04/13/22 09:45 AMB (Rec: 04/14/22 13:02 AMB [id number]) Physical Therapy Assessment Rehab Potential Rehabilitation Potential Good Evaluation Complexity Number of Personal Factors/Comorbidities 1-2 Number of Body Systems Impaired 4 or More Clinical Presentation at Evaluation Stable Impairments Impairments Activity Tolerance,Functional Activities,Gait,Strength Goals Two Impairment Return to hiking Short Term Goal (STG) Zaid will hike for 3 miles with elevation gain without an increase in knee pain. STG Duration 4 weeks Multiple [employer] Sawyer Goal (LTG) Zaid will hike for 10 miles with elevation gain without an increase in knee pain. LTG Duration 8 weeks One Impairment Strength Short Term Goal (STG) Zaid will be independent with a HEP for R LE strengthening. STG Duration 4 weeks Shelter Goal (LTG) Zaid will improve his hip and knee strength to 5/5 in all planes. LTG Duration 8 weeks Assessment Summary Assessment Zaid attends physical therapy with continued pain and difficulty returning to hiking s/p meniscus tear in the context of R LE weakness 2 years s/p DVT and R hamstring strain. He is an avid hiker, and while he can hike 2 miles over flat terrain, is concerned about his ability to return to hiking over uneven terrain and hikes with a significant elevation change. He did present with calf, hamstring and gluteal weakness and will benefit from a R LE extremity strengthening program that does not flare his knee pain. Physical Therapy Plan Frequency and Duration Frequency of Treatment 2x/Week Duration of Treatment 8 weeks Plan of Care Start Date 04/13/22 Plan of Care End Date 06/13/22 Therapeutic Interventions Therapeutic Interventions Gait Training,Home Exercise Program,Joint Mobilizations, Manual Therapy,Neuromuscular Re-education,Self-Care/Home Management,Therapeutic Activities,Therapeutic Exercises Modalities Cold Pack/Ice Massage Next Visit Focus/Plan Next Note Type Treatment Note Next Visit Plan progress glute/quad strengthening closed chain Plan of Care Dates Plan of Care Start Date 04/13/22 Plan of Care End Date 06/13/22 Electronically Signed by: Shannan Mustafa, PT 04/14/22 [id number] If you are in agreement with this Plan of Care, please return a signed and dated copy. I have reviewed this Plan of Care and certify that the skilled therapy services above are required to meet the patient?s needs. Physician Signature Date Printed Name and Credentials Clinical Instructor Signature Printed Name and Credentials
--- NOTE | 2022-04-15 11:56 | PT.OTN ---
Current Diagnoses Pain in right knee (04/15/22) Sprain of anterior cruciate ligament of right knee, initial encounter (04/15/22) Physical Therapy Treatment Note PT-OP-A Visit Information Start: 04/13/22 09:48 Freq: Status: Active Protocol: Document 04/15/22 09:48 AMB (Rec: 04/15/22 10:31 AMB [id number]) Out-Patient Physical Therapy Visit Information Visit Information Visit Type Treatment Note Visit Start Time 09:45 Visit Stop Time 10:30 Total Visit Minutes 45 Visit Number 2 PT-OP-B Current Condition Start: 04/13/22 09:48 Freq: Status: Active Protocol: Document 04/13/22 09:50 AMB (Rec: 04/13/22 10:11 AMB [id number]) Current Condition History of Current Condition Onset Date January 2022 Current Complaints R knee pain History of Current Condition Carrying 100 pound load over the stairs and possibly twisted over a month ago. Orthopedist has osteoarthritis in both knees L>R. MRI said there was a meniscus tear. Has been biking on his mountain bike over smooth terrain. Has twisted the knee a couple of times, most recently 1.5 weeks ago, does feel like it regressed a bit. Initially couldn't put weight on it for about 3 days. 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 Hasn't been doing hamstring stretches as much because gets knee pain with getting on and off. Did go on a 2 mile flat hike and that was fine recently. Personal Factors Other Personal Factors That May Effect history of hamstring strain Therapy/Recovery and DVT on the right PT-OP-C Subjective Start: 04/13/22 09:48 Freq: Status: Active Protocol: Document 04/15/22 09:48 AMB (Rec: 04/15/22 10:31 AMB [id number]) OP-PT Subjective Patient Comments Patient Comments Zaid did have some knee pain after twisting and sprinting after his dog, but otherwise has been feeling fine. PT-OP-G Mobility & Gait Start: 04/13/22 09:48 Freq: Status: Active Protocol: Document 04/13/22 09:45 AMB (Rec: 04/14/22 15:55 AMB [id number]) OP Mobility Evaluation Functional Movements Squats hip pain on the right limits deep squats PT-OP-K Range of Motion Start: 04/13/22 09:48 Freq: Status: Active Protocol: Document 04/13/22 09:45 AMB (Rec: 04/14/22 15:55 AMB [id number]) Knee Goniometric Range of Motion Knee ROM Limitations Comments no pain ROM testing, flexion and extension WFL PT-OP-M Strength Start: 04/13/22 09:48 Freq: Status: Active Protocol: Document 04/13/22 09:45 AMB (Rec: 04/14/22 13:02 AMB [id number]) Hip Strength Hip Manual Muscle Testing Right Flexion (L2) 4+ Good+ Extension (S1) 4 Good Abduction 4+ Good+ Knee Strength Knee Manual Muscle Testing Right Flexion (S2) 4+ Good+ Extension (L3) 4+ Good+ PT-OP-Q Treatments Start: 04/13/22 09:48 Freq: Status: Active Protocol: Document 04/15/22 09:45 AMB (Rec: 04/15/22 11:53 AMB [id number]) Gym Equipment Shuttle Balance 1 Details RED Reps/Duration 10 min Comments m/l and a/p mini squats Therapeutic Exercises Standing Exercises lateral lunges Side right Reps/Minutes 2x10 hamstring stretch Reps/Minutes 30'x2 Comments stair calf stretch Reps/Minutes 30x2 Comments ANA bosu ball Standing Exercise Name balance and then mini squat Reps/Minutes 5 min fwd lunges Standing Exercise Name firm and then airex pad Reps/Minutes 2x10 Comments partial range PT-OP-T Assessment and Plan Start: 04/13/22 09:48 Freq: Status: Active Protocol: Document 04/15/22 09:48 AMB (Rec: 04/15/22 10:31 AMB [id number]) Physical Therapy Assessment Goals Two Impairment Return to hiking Short Term Goal (STG) Zaid will hike for 3 miles with elevation gain without an increase in knee pain. STG Duration 4 weeks [place] Goal (LTG) Zaid will hike for 10 miles with elevation gain without an increase in knee pain. LTG Duration 8 weeks One Impairment Strength Short Term Goal (STG) Zaid will be independent with a HEP for R LE strengthening. STG Duration 4 weeks [place] Goal (LTG) Zaid will improve his hip and knee strength to 5/5 in all planes. LTG Duration 8 weeks Assessment Summary Assessment Bill tolerated exercises well, was challenged by balance and uneven exercises, but did not express any joint pain during exercises. HEP given of partial forward and lateral lunges. Physical Therapy Plan Next Visit Focus/Plan Next Note Type Treatment Note Next Visit Plan progress glute/quad strengthening closed chain
--- NOTE | 2022-04-20 16:00 | PT.OTN ---
Current Diagnoses Pain in right knee (04/20/22) Sprain of anterior cruciate ligament of right knee, initial encounter (04/20/22) Physical Therapy Treatment Note PT-OP-A Visit Information Start: 04/13/22 09:48 Freq: Status: Active Protocol: Document 04/20/22 09:50 AMB (Rec: 04/20/22 11:13 AMB [id number]) Out-Patient Physical Therapy Visit Information Visit Information Visit Type Treatment Note Visit Start Time 09:45 Visit Stop Time 10:30 Total Visit Minutes 45 Visit Number 3 PT-OP-B Current Condition Start: 04/13/22 09:48 Freq: Status: Active Protocol: Document 04/13/22 09:50 AMB (Rec: 04/13/22 10:11 AMB [id number]) Current Condition History of Current Condition Onset Date January 2022 Current Complaints R knee pain History of Current Condition Carrying 100 pound load over the stairs and possibly twisted over a month ago. Orthopedist has osteoarthritis in both knees L>R. MRI said there was a meniscus tear. Has been biking on his mountain bike over smooth terrain. Has twisted the knee a couple of times, most recently 1.5 weeks ago, does feel like it regressed a bit. Initially couldn't put weight on it for about 3 days. 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 Hasn't been doing hamstring stretches as much because gets knee pain with getting on and off. Did go on a 2 mile flat hike and that was fine recently. Personal Factors Other Personal Factors That May Effect history of hamstring strain Therapy/Recovery and DVT on the right PT-OP-C Subjective Start: 04/13/22 09:48 Freq: Status: Active Protocol: Document 04/20/22 09:50 AMB (Rec: 04/20/22 11:13 AMB [id number]) OP-PT Subjective Patient Comments Patient Comments Bill denies any knee pain after PT last vist, went on an easy hike, but hasn't tried [place] yet. PT-OP-G Mobility & Gait Start: 04/13/22 09:48 Freq: Status: Active Protocol: Document 04/13/22 09:45 AMB (Rec: 04/14/22 15:55 AMB [id number]) OP Mobility Evaluation Functional Movements Squats hip pain on the right limits deep squats PT-OP-K Range of Motion Start: 04/13/22 09:48 Freq: Status: Active Protocol: Document 04/13/22 09:45 AMB (Rec: 04/14/22 15:55 AMB [id number]) Knee Goniometric Range of Motion Knee ROM Limitations Comments no pain ROM testing, flexion and extension WFL PT-OP-M Strength Start: 04/13/22 09:48 Freq: Status: Active Protocol: Document 04/13/22 09:45 AMB (Rec: 04/14/22 13:02 AMB [id number]) Hip Strength Hip Manual Muscle Testing Right Flexion (L2) 4+ Good+ Extension (S1) 4 Good Abduction 4+ Good+ Knee Strength Knee Manual Muscle Testing Right Flexion (S2) 4+ Good+ Extension (L3) 4+ Good+ PT-OP-Q Treatments Start: 04/13/22 09:48 Freq: Status: Active Protocol: Document 04/20/22 09:45 AMB (Rec: 04/22/22 13:03 AMB [id number]) Therapeutic Exercises Standing Exercises lateral stepping Resistance yellow band Reps/Minutes 20'x6 lateral lunges Side right Reps/Minutes 2x10 hamstring stretch Reps/Minutes 30'x2 Comments stair calf stretch Reps/Minutes 30x2 Comments ANA fwd lunges Standing Exercise Name firm Comments increased hip pain/dced PT-OP-T Assessment and Plan Start: 04/13/22 09:48 Freq: Status: Active Protocol: Document 04/20/22 09:50 AMB (Rec: 04/20/22 11:13 AMB [id number]) Physical Therapy Assessment Goals Two Impairment Return to hiking Short Term Goal (STG) Zaid will hike for 3 miles with elevation gain without an increase in knee pain. STG Duration 4 weeks Ear Specialist Goal (LTG) Zaid will hike for 10 miles with elevation gain without an increase in knee pain. LTG Duration 8 weeks One Impairment Strength Short Term Goal (STG) Zaid will be independent with a HEP for R LE strengthening. STG Duration 4 weeks Ear Specialist Goal (LTG) Zaid will improve his hip and knee strength to 5/5 in all planes. LTG Duration 8 weeks Assessment Summary Assessment Zaid continues to tolerate exercises well, did have some hip pain with deep lunges, so did not continue with those. Physical Therapy Plan Next Visit Focus/Plan Next Note Type Treatment Note Next Visit Plan progress glute/quad strengthening closed chain
--- NOTE | 2022-04-27 15:45 | PT.OTN ---
Current Diagnoses Pain in right knee (04/27/22) Sprain of anterior cruciate ligament of right knee, initial encounter (04/27/22) Physical Therapy Treatment Note PT-OP-A Visit Information Start: 04/13/22 09:48 Freq: Status: Active Protocol: Document 04/27/22 09:46 AMB (Rec: 04/27/22 11:19 AMB [id number]) Out-Patient Physical Therapy Visit Information Visit Information Visit Type Treatment Note Visit Start Time 09:45 Visit Stop Time 10:30 Total Visit Minutes 45 Visit Number 4 PT-OP-B Current Condition Start: 04/13/22 09:48 Freq: Status: Active Protocol: Document 04/13/22 09:50 AMB (Rec: 04/13/22 10:11 AMB [id number]) Current Condition History of Current Condition Onset Date January 2022 Current Complaints R knee pain History of Current Condition Carrying 100 pound load over the stairs and possibly twisted over a month ago. Orthopedist has osteoarthritis in both knees L>R. MRI said there was a meniscus tear. Has been biking on his mountain bike over smooth terrain. Has twisted the knee a couple of times, most recently 1.5 weeks ago, does feel like it regressed a bit. Initially couldn't put weight on it for about 3 days. 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 Hasn't been doing hamstring stretches as much because gets knee pain with getting on and off. Did go on a 2 mile flat hike and that was fine recently. Personal Factors Other Personal Factors That May Effect history of hamstring strain Therapy/Recovery and DVT on the right PT-OP-C Subjective Start: 04/13/22 09:48 Freq: Status: Active Protocol: Document 04/27/22 09:46 AMB (Rec: 04/27/22 11:19 AMB [id number]) OP-PT Subjective Patient Comments Patient Comments Bill did have hip pain after last visit. Is subsided now. Went on some flat hikes. PT-OP-G Mobility & Gait Start: 04/13/22 09:48 Freq: Status: Active Protocol: Document 04/13/22 09:45 AMB (Rec: 04/14/22 15:55 AMB [id number]) OP Mobility Evaluation Functional Movements Squats hip pain on the right limits deep squats PT-OP-K Range of Motion Start: 04/13/22 09:48 Freq: Status: Active Protocol: Document 04/13/22 09:45 AMB (Rec: 04/14/22 15:55 AMB [id number]) Knee Goniometric Range of Motion Knee ROM Limitations Comments no pain ROM testing, flexion and extension WFL PT-OP-M Strength Start: 04/13/22 09:48 Freq: Status: Active Protocol: Document 04/13/22 09:45 AMB (Rec: 04/14/22 13:02 AMB [id number]) Hip Strength Hip Manual Muscle Testing Right Flexion (L2) 4+ Good+ Extension (S1) 4 Good Abduction 4+ Good+ Knee Strength Knee Manual Muscle Testing Right Flexion (S2) 4+ Good+ Extension (L3) 4+ Good+ PT-OP-Q Treatments Start: 04/13/22 09:48 Freq: Status: Active Protocol: Document 04/27/22 09:46 AMB (Rec: 04/27/22 11:19 AMB [id number]) Therapeutic Exercises Sidelying Exercises hip abd Reps/Minutes 10 Standing Exercises lateral lunges Side right Reps/Minutes 2x10 Comments small hamstring stretch Reps/Minutes 30'x2 Comments stair calf stretch Reps/Minutes 30x2 Comments ANA fwd lunges Standing Exercise Name firm Comments very small- and hold PT-OP-T Assessment and Plan Start: 04/13/22 09:48 Freq: Status: Active Protocol: Document 04/27/22 09:46 AMB (Rec: 04/27/22 11:19 AMB [id number]) Physical Therapy Assessment Goals Two Impairment Return to hiking Short Term Goal (STG) Zaid will hike for 3 miles with elevation gain without an increase in knee pain. STG Duration 4 weeks Senior Living Goal (LTG) Zaid will hike for 10 miles with elevation gain without an increase in knee pain. LTG Duration 8 weeks One Impairment Strength Short Term Goal (STG) Zaid will be independent with a HEP for R LE strengthening. STG Duration 4 weeks Patient Insurance Clerk Goal (LTG) Zaid will improve his hip and knee strength to 5/5 in all planes. LTG Duration 8 weeks Assessment Summary Assessment Zaid is concerned about his hip. It was a little sore this last week, discussed osteoarthritis at length. Ok to gently push into slight discomfort, but try to be aware of impact activities and not force ROM into significant pain. Physical Therapy Plan Next Visit Focus/Plan Next Note Type Treatment Note Next Visit Plan progress glute/quad strengthening closed chain
--- NOTE | 2022-05-11 14:35 | PT.OTN ---
Current Diagnoses Pain in right knee (05/11/22) Sprain of anterior cruciate ligament of right knee, initial encounter (05/11/22) Physical Therapy Treatment Note PT-OP-A Visit Information Start: 04/13/22 09:48 Freq: Status: Active Protocol: Document 05/11/22 13:46 AMB (Rec: 05/11/22 14:35 AMB [id number]) Out-Patient Physical Therapy Visit Information Visit Information Visit Type Treatment Note Visit Start Time 13:45 Visit Stop Time 14:30 Total Visit Minutes 45 Visit Number 5 PT-OP-B Current Condition Start: 04/13/22 09:48 Freq: Status: Active Protocol: Document 04/13/22 09:50 AMB (Rec: 04/13/22 10:11 AMB [id number]) Current Condition History of Current Condition Onset Date January 2022 Current Complaints R knee pain History of Current Condition Carrying 100 pound load over the stairs and possibly twisted over a month ago. Orthopedist has osteoarthritis in both knees L>R. MRI said there was a meniscus tear. Has been biking on his mountain bike over smooth terrain. Has twisted the knee a couple of times, most recently 1.5 weeks ago, does feel like it regressed a bit. Initially couldn't put weight on it for about 3 days. 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 Hasn't been doing hamstring stretches as much because gets knee pain with getting on and off. Did go on a 2 mile flat hike and that was fine recently. Personal Factors Other Personal Factors That May Effect history of hamstring strain Therapy/Recovery and DVT on the right PT-OP-C Subjective Start: 04/13/22 09:48 Freq: Status: Active Protocol: Document 05/11/22 13:46 AMB (Rec: 05/11/22 14:35 AMB [id number]) OP-PT Subjective Patient Comments Patient Comments Bill hiked [place] to [place] [address], on both knees really, fairly mild . Mild 5 mile hike. Not too sore after PT-OP-G Mobility & Gait Start: 04/13/22 09:48 Freq: Status: Active Protocol: Document 04/13/22 09:45 AMB (Rec: 04/14/22 15:55 AMB [id number]) OP Mobility Evaluation Functional Movements Squats hip pain on the right limits deep squats PT-OP-K Range of Motion Start: 04/13/22 09:48 Freq: Status: Active Protocol: Document 04/13/22 09:45 AMB (Rec: 04/14/22 15:55 AMB [id number]) Knee Goniometric Range of Motion Knee ROM Limitations Comments no pain ROM testing, flexion and extension WFL PT-OP-M Strength Start: 04/13/22 09:48 Freq: Status: Active Protocol: Document 04/13/22 09:45 AMB (Rec: 04/14/22 13:02 AMB [id number]) Hip Strength Hip Manual Muscle Testing Right Flexion (L2) 4+ Good+ Extension (S1) 4 Good Abduction 4+ Good+ Knee Strength Knee Manual Muscle Testing Right Flexion (S2) 4+ Good+ Extension (L3) 4+ Good+ PT-OP-Q Treatments Start: 04/13/22 09:48 Freq: Status: Active Protocol: Document 05/11/22 13:46 AMB (Rec: 05/11/22 14:35 AMB [id number]) Therapeutic Exercises Sidelying Exercises hip abd Reps/Minutes 10 Comments reviewed form Standing Exercises step ups Standing Exercise Name 6 lateral lunges Side right Reps/Minutes 2x10 Comments small fwd lunges Standing Exercise Name firm Reps/Minutes 10 Comments very small- and hold PT-OP-T Assessment and Plan Start: 04/13/22 09:48 Freq: Status: Active Protocol: Document 05/11/22 13:46 AMB (Rec: 05/11/22 14:35 AMB [id number]) Physical Therapy Assessment Goals Two Impairment Return to hiking Short Term Goal (STG) Zaid will hike for 3 miles with elevation gain without an increase in knee pain. STG Duration 4 weeks Watch Parts Grinder Goal (LTG) Zaid will hike for 10 miles with elevation gain without an increase in knee pain. LTG Duration 8 weeks One Impairment Strength Short Term Goal (STG) Zaid will be independent with a HEP for R LE strengthening. STG Duration 4 weeks [place] Goal (LTG) Zaid will improve his hip and knee strength to 5/5 in all planes. LTG Duration 8 weeks Assessment Summary Assessment Zaid is doing well, he is going to go on a hike. Did well with holding lunges longer.
--- NOTE | 2022-05-20 11:14 | PT.OTN ---
Current Diagnoses Pain in right knee (05/20/22) Sprain of anterior cruciate ligament of right knee, initial encounter (05/20/22) Physical Therapy Treatment Note PT-OP-A Visit Information Start: 04/13/22 09:48 Freq: Status: Active Protocol: Document 05/20/22 10:36 AMB (Rec: 05/20/22 11:14 AMB [id number]) Out-Patient Physical Therapy Visit Information Visit Information Visit Type Treatment Note Visit Start Time 10:30 Visit Stop Time 11:15 Total Visit Minutes 45 Visit Number 6 PT-OP-B Current Condition Start: 04/13/22 09:48 Freq: Status: Active Protocol: Document 04/13/22 09:50 AMB (Rec: 04/13/22 10:11 AMB [id number]) Current Condition History of Current Condition Onset Date January 2022 Current Complaints R knee pain History of Current Condition Carrying 100 pound load over the stairs and possibly twisted over a month ago. Orthopedist has osteoarthritis in both knees L>R. MRI said there was a meniscus tear. Has been biking on his mountain bike over smooth terrain. Has twisted the knee a couple of times, most recently 1.5 weeks ago, does feel like it regressed a bit. Initially couldn't put weight on it for about 3 days. 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 Hasn't been doing hamstring stretches as much because gets knee pain with getting on and off. Did go on a 2 mile flat hike and that was fine recently. Personal Factors Other Personal Factors That May Effect history of hamstring strain Therapy/Recovery and DVT on the right PT-OP-C Subjective Start: 04/13/22 09:48 Freq: Status: Active Protocol: Document 05/20/22 10:36 AMB (Rec: 05/20/22 11:14 AMB [id number]) OP-PT Subjective Patient Comments Patient Comments Zaid hiked on [employer], did have some knee discomfort, but nothing that stopped him from hiking. PT-OP-G Mobility & Gait Start: 04/13/22 09:48 Freq: Status: Active Protocol: Document 04/13/22 09:45 AMB (Rec: 04/14/22 15:55 AMB [id number]) OP Mobility Evaluation Functional Movements Squats hip pain on the right limits deep squats PT-OP-K Range of Motion Start: 04/13/22 09:48 Freq: Status: Active Protocol: Document 04/13/22 09:45 AMB (Rec: 04/14/22 15:55 AMB [id number]) Knee Goniometric Range of Motion Knee ROM Limitations Comments no pain ROM testing, flexion and extension WFL PT-OP-M Strength Start: 04/13/22 09:48 Freq: Status: Active Protocol: Document 04/13/22 09:45 AMB (Rec: 04/14/22 13:02 AMB [id number]) Hip Strength Hip Manual Muscle Testing Right Flexion (L2) 4+ Good+ Extension (S1) 4 Good Abduction 4+ Good+ Knee Strength Knee Manual Muscle Testing Right Flexion (S2) 4+ Good+ Extension (L3) 4+ Good+ PT-OP-Q Treatments Start: 04/13/22 09:48 Freq: Status: Active Protocol: Document 05/20/22 10:36 AMB (Rec: 05/20/22 11:14 AMB [id number]) Therapeutic Exercises Standing Exercises gentle jog Comments no pain step ups Standing Exercise Name 6 lateral lunges Side right Reps/Minutes 2x10 Comments small hamstring stretch Reps/Minutes 30'x2 Comments stair fwd lunges Standing Exercise Name firm Reps/Minutes 10 Comments cues for alignment knee over toe PT-OP-T Assessment and Plan Start: 04/13/22 09:48 Freq: Status: Active Protocol: Document 05/20/22 10:36 AMB (Rec: 05/20/22 11:14 AMB [id number]) Physical Therapy Assessment Goals Two Impairment Return to hiking Short Term Goal (STG) Zaid will hike for 3 miles with elevation gain without an increase in knee pain. STG Duration 4 weeks Client Services Coordinator Goal (LTG) Zaid will hike for 10 miles with elevation gain without an increase in knee pain. LTG Duration 8 weeks One Impairment Strength Short Term Goal (STG) Zaid will be independent with a HEP for R LE strengthening. STG Duration 4 weeks Client Services Coordinator Goal (LTG) Zaid will improve his hip and knee strength to 5/5 in all planes. LTG Duration 8 weeks Assessment Summary Assessment Hiking is going well. Did discuss return to running/ cutting and how that would be more advanced, if pt wants to play pickle ball would want to work more on cutting than we have. Physical Therapy Plan Next Visit Focus/Plan Next Note Type Treatment Note Next Visit Plan progress glute/quad strengthening closed chain
--- NOTE | 2022-06-22 15:43 | PT.OTN ---
Current Diagnoses Pain in right knee (06/22/22) Sprain of anterior cruciate ligament of right knee, initial encounter (06/22/22) Physical Therapy Treatment Note PT-OP-A Visit Information Start: 04/13/22 09:48 Freq: Status: Active Protocol: Document 06/22/22 14:31 AMB (Rec: 06/22/22 15:43 AMB [id number]) Out-Patient Physical Therapy Visit Information Visit Information Visit Type Treatment Note Visit Start Time 14:30 Visit Stop Time 15:15 Total Visit Minutes 45 Visit Number 7 PT-OP-B Current Condition Start: 04/13/22 09:48 Freq: Status: Active Protocol: Document 04/13/22 09:50 AMB (Rec: 04/13/22 10:11 AMB [id number]) Current Condition History of Current Condition Onset Date January 2022 Current Complaints R knee pain History of Current Condition Carrying 100 pound load over the stairs and possibly twisted over a month ago. Orthopedist has osteoarthritis in both knees L>R. MRI said there was a meniscus tear. Has been biking on his mountain bike over smooth terrain. Has twisted the knee a couple of times, most recently 1.5 weeks ago, does feel like it regressed a bit. Initially couldn't put weight on it for about 3 days. 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 Hasn't been doing hamstring stretches as much because gets knee pain with getting on and off. Did go on a 2 mile flat hike and that was fine recently. Personal Factors Other Personal Factors That May Effect history of hamstring strain Therapy/Recovery and DVT on the right PT-OP-C Subjective Start: 04/13/22 09:48 Freq: Status: Active Protocol: Document 06/22/22 14:31 AMB (Rec: 06/22/22 15:43 AMB [id number]) OP-PT Subjective Patient Comments Patient Comments Zaid fell of his Mountain Bike and hurt his wrist, elbow and ribs. Pt went on a couple hikes. Does have knee pain bilaterally for about a half a day. Hamstring does spasm if lightly jogging. PT-OP-G Mobility & Gait Start: 04/13/22 09:48 Freq: Status: Active Protocol: Document 04/13/22 09:45 AMB (Rec: 04/14/22 15:55 AMB [id number]) OP Mobility Evaluation Functional Movements Squats hip pain on the right limits deep squats PT-OP-K Range of Motion Start: 04/13/22 09:48 Freq: Status: Active Protocol: Document 04/13/22 09:45 AMB (Rec: 04/14/22 15:55 AMB [id number]) Knee Goniometric Range of Motion Knee ROM Limitations Comments no pain ROM testing, flexion and extension WFL PT-OP-M Strength Start: 04/13/22 09:48 Freq: Status: Active Protocol: Document 04/13/22 09:45 AMB (Rec: 04/14/22 13:02 AMB [id number]) Hip Strength Hip Manual Muscle Testing Right Flexion (L2) 4+ Good+ Extension (S1) 4 Good Abduction 4+ Good+ Knee Strength Knee Manual Muscle Testing Right Flexion (S2) 4+ Good+ Extension (L3) 4+ Good+ PT-OP-Q Treatments Start: 04/13/22 09:48 Freq: Status: Active Protocol: Document 06/22/22 14:31 AMB (Rec: 06/22/22 15:43 AMB [id number]) Therapeutic Exercises Standing Exercises t band Standing Exercise Name knee flexion and then hip extension Resistance #4 t band Reps/Minutes 2x10 hamstring stretch Reps/Minutes 30'x2 Comments stair calf stretch Reps/Minutes 30x2 Comments ANA PT-OP-T Assessment and Plan Start: 04/13/22 09:48 Freq: Status: Active Protocol: Document 06/22/22 14:31 AMB (Rec: 06/22/22 15:43 AMB [id number]) Physical Therapy Assessment Goals Two Impairment Return to hiking Short Term Goal (STG) Zaid will hike for 3 miles with elevation gain without an increase in knee pain. STG Duration MET Manager Supply Chain Goal (LTG) Zaid will hike for 10 miles with elevation gain without an increase in knee pain. LTG Duration 8 weeks One Impairment Strength Short Term Goal (STG) Zaid will be independent with a HEP for R LE strengthening. STG Duration MET Halfway Goal (LTG) Zaid will improve his hip and knee strength to 5/5 in all planes. LTG Duration MET Assessment Summary Assessment Pt did have a fall off of a bike and so has had some other pain issues. But overall R knee pain is now equal to L knee pain and not limiting him from his hikes. Chronic hamstring issue is more of a limiting factor than the knee at this point, Bill should be able to manage independently with his HEP therefore he is discharged. Physical Therapy Plan Frequency and Duration Frequency of Treatment 1x/Week Duration of Treatment 2 weeks Plan of Care Start Date 06/14/22 Plan of Care End Date 06/28/22 Therapeutic Interventions Therapeutic Interventions Gait Training,Home Exercise Program,Joint Mobilizations, Manual Therapy,Neuromuscular Re-education,Self-Care/Home Management,Therapeutic Activities,Therapeutic Exercises Modalities Cold Pack/Ice Massage
--- NOTE | 2022-06-22 15:43 | PT.OPPOC ---
Physical, Occupational & Speech Therapy At [facility] Current Diagnoses Pain in right knee (06/22/22) Sprain of anterior cruciate ligament of right knee, initial encounter (06/22/22) Visit Care Team Role Provider Type Irvin Duran MD Attending Provider Physician Family Provider Primary Care Provider Referring Provider Specialty: Family Practice Address: [address] [place] [address], [facility] Email: [email or web address] Plan Of Care PT-OP-T Assessment and Plan Start: 04/13/22 09:48 Freq: Status: Active Protocol: Document 06/22/22 14:31 AMB (Rec: 06/22/22 15:43 AMB [id number]) Physical Therapy Assessment Goals Two Impairment Return to hiking Short Term Goal (STG) Zaid will hike for 3 miles with elevation gain without an increase in knee pain. STG Duration MET Alf Goal (LTG) Zaid will hike for 10 miles with elevation gain without an increase in knee pain. LTG Duration 8 weeks One Impairment Strength Short Term Goal (STG) Zaid will be independent with a HEP for R LE strengthening. STG Duration MET Clinical Support Associate Goal (LTG) Zaid will improve his hip and knee strength to 5/5 in all planes. LTG Duration MET Assessment Summary Assessment Pt did have a fall off of a bike and so has had some other pain issues. But overall R knee pain is now equal to L knee pain and not limiting him from his hikes. Chronic hamstring issue is more of a limiting factor than the knee at this point, Zaid should be able to manage independently with his HEP therefore he is discharged. Physical Therapy Plan Frequency and Duration Frequency of Treatment 1x/Week Duration of Treatment 2 weeks Plan of Care Start Date 06/14/22 Plan of Care End Date 06/28/22 Therapeutic Interventions Therapeutic Interventions Gait Training,Home Exercise Program,Joint Mobilizations, Manual Therapy,Neuromuscular Re-education,Self-Care/Home Management,Therapeutic Activities,Therapeutic Exercises Modalities Cold Pack/Ice Massage Plan of Care Dates Plan of Care Start Date 06/14/22 Plan of Care End Date 06/28/22 Electronically Signed by: Shannan Mustafa, PT 06/22/22 9600 If you are in agreement with this Plan of Care, please return a signed and dated copy. I have reviewed this Plan of Care and certify that the skilled therapy services above are required to meet the patient?s needs. Physician Signature Date Printed Name and Credentials Clinical Instructor Signature Printed Name and Credentials
== END 2022-06-23 14:40 ==
LOC: PHYS 14:30
PROVIDERS: Family Provider Family Medicine; PCP Family Medicine; Referring Provider Family Medicine; Visit Provider Family Medicine
DX: S83.511A Sprain of anterior cruciate ligament of right knee, initial encounter (principal); M25.561 Pain in right knee
CPT/HCPCS: 97110; 97161

== ENCOUNTER → 2022-09-09 09:01 | Outpatient (CLI) | payer MEDICARE, OTHER, SELFPAY ==
--- NOTE | 2022-09-09 09:02 | DI.US.S_ITS ---
PROCEDURE: US PERIPH VENOUS LOW EXTREM RT INDICATIONS: right lower extremity DVT with new pain. On xarelto TECHNIQUE: Real-time imaging, as well as color and pulse Doppler interrogation, were performed of the lower extremity deep veins from the inguinal ligament to the popliteal fossa. COMPARISON: [facility], , VENOUS LOWER EXTREMITY DOPPLER RIGHT, 02/02/2021, 16:37. [facility], , US PERIP VENOUS LOW EXTREM RT, 02/05/2022, 14:03. FINDINGS: Occlusive deep venous thrombosis can be seen involving the distal femoral vein. There is partially occlusive popliteal vein thrombosis also seen. There is a complex Ramey's cyst versus hematoma seen at the area of pain involving the upper calf that measures 9 x 1.3 x 4 cm. IMPRESSION: Stable known distal right lower extremity deep venous thrombosis. Hematoma versus complex Ramey's cyst seen within the calf at the site of clinical concern. Dictated by: Low Bejarano M.D. on 09/09/2022 at 9:15 Approved by: Low Bejarano M.D. on 09/09/2022 at 9:17
== END ==
PROVIDERS: Family Provider Family Medicine; PCP Family Medicine; Referring Provider Family Medicine; Visit Provider Family Medicine
DX: I82.431 Acute embolism and thrombosis of right popliteal vein; I82.411 Acute embolism and thrombosis of right femoral vein; M79.661 Pain in right lower leg; Z79.01 Long term (current) use of anticoagulants
CPT/HCPCS: 93971

== ENCOUNTER → 2022-11-03 09:55 | Outpatient (CLI) | payer MEDICARE, OTHER, SELFPAY ==
[2022-11-03 11:05] LABS: COVID19 -Nasal RAPID Negative (Negative)
== END ==
PROVIDERS: Family Provider Family Medicine; PCP Family Medicine; Visit Provider Surgery
DX: Z01.812 Encounter for preprocedural laboratory examination (principal); Z20.822 Contact with and (suspected) exposure to COVID-19
CPT/HCPCS: 87635; C9803

== ENCOUNTER 2022-11-04 09:12 | Day surgery (SDC) | payer MEDICARE, OTHER, SELFPAY ==
[2022-11-04] VITALS (7 sets, daily range): BP systolic 105–147; BP diastolic 69–90; PULSE 65–81; RESP 12–22; TEMP 36.1–36.7; O2SAT 92–100; BMI 32.1
--- NOTE | 2022-11-04 | PATH_ITS ---
[facility] Accession Number: [id number] No. of containers..02 Tissue . 01 Material submitted: . PART A: colon - ASCENDING COLON POLYP PART B: colon - TRANSVERSE COLON POLYP . 01 Diagnosis: A. Ascending Colon Polyp, Biopsy: Tubular adenoma. . B. Transverse Colon Polyp, Biopsy: Hyperplastic polyp. MRV 11/10/2022 1318 Local . 01 Electronically signed: . Serenity Gtz MD, Pathologist NPI- [id number] . 01 Gross description: . Part A: ASCENDING COLON POLYP: Received in formalin is 1 fragment(s) of tapia, soft tissue measuring 0.3 x 0.3 x 0.2 cm submitted entirely in 1 cassette(s) Part B: TRANSVERSE COLON POLYP: Received in formalin are 2 fragment(s) of tapia, soft tissue measuring 0.4 x 0.4 x 0.2 cm to 0.6 x 0.6 x 0.2 cm submitted entirely in 1 cassette(s) /CAR 11/08/2022 2227 Local . 01 Pathologist provided ICD-10: D12.2, D12.3 . 01 CPT . 590643, 474851 Specimen Comment: A courtesy copy of this report has been sent to [phone] Performed at: 01 [facility] [address] [place] [address] [address], [place], [place] [id number] MD Chandrakant Covington MD Phone: [phone]
[2022-11-04] MEDS: LACTATED RINGERS 1,000 ML 42 ML IV (09:47)
--- NOTE | 2022-11-04 10:34 | PM.HP.1 ---
History of Present Illness History of Present Illness Date Patient Seen: 11/04/22 Time Patient Seen: 10:34 Chief complaint: SCREENING COLONOSCOPY Narrative: Zaid is a 67 year old man who's most recent colonoscopy was about 5 years ago with at least one polyp. 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 Patient History Medical History Acute pain of right knee Anticardiolipin antibody positive Dvt femoral (deep venous thrombosis) GERD (gastroesophageal reflux disease) Hyperlipidemia Hypertension Impingement syndrome of both shoulders Sprain of anterior cruciate ligament of right knee Ulnar nerve impingement Family & Social History Family History Unknown Hypertension Social History: household members spouse Tobacco & Substance use: Smoking Status Never smoker alcohol intake current alcohol intake frequency 0-2 drinks per day Substance Use Type does not use Meds Home Medications and Allergies Home Medications Medication Instructions Recorded Confirmed Type vit C 250 mg-vit E 200 unit-zinc 1 cap PO DAILY 11/27/20 11/04/22 History ox 12.5 [id number] capsule (ICaps AREDS2) lisinopril 20 See Rx Instructions .Route 01/18/22 11/04/22 Rx mg-hydrochlorothiazide 25 mg tablet .COMPLEX #90 tabs atorvastatin 40 mg tablet 40 mg PO QPM #90 tabs 02/19/22 11/04/22 Rx rivaroxaban 20 mg tablet (Xarelto) See Rx Instructions .Route 04/19/22 11/04/22 Rx .COMPLEX #90 tabs sodium sul 1.479 gram-potas ch See Rx Instructions PO PER PKG DIR 10/27/22 11/04/22 Rx 0.188 gram-magnes sul 0.225 gram #24 tabs tablet (Sutab) Allergies Allergy/AdvReac Type Severity Reaction Status Date / Time No Known Drug Allergies Allergy Verified 11/04/22 09:42 Exam Vital Signs (past 8 hours): - 11/04/22 09:31 Temperature 97 F L Pulse Rate 79 Respiratory Rate 15 Blood Pressure 147/90 H Pulse Oximetry 97 Oxygen Delivery Method Room Air Oxygen Delivery Method Room Air Narrative Exam Narrative: Abdomen soft no acute distress Assessment & Plan Assessment and plan (1) History of colon polyps: Status: Acute Plan We reviewed the risks and benefits of colonoscopy and he would like to proceed. Time Spent With Patient Critical Care time: I spent a total of [] minutes of critical care time on this patient's care today; this time is exclusive of procedural time.
--- NOTE | 2022-11-04 11:41 | PM.OP.COLON ---
Operative Date/Time/Diagnoses Date of procedure: 11/04/22 Time of procedure: 11:41 Pre-op diagnosis: History of colon polyps Post-op diagnosis: same Procedure & Clinicians Study performed: Colonoscopy Same procedure as scheduled: Yes Surgeon: Saran Lam Procedure Notes Procedure in detail: Surgeon: Saran Lam MD Anesthesia: Lizette Torrez CRNA Procedure: The patient was brought to the endoscopy suite, placed in left lateral decubitus position. The patient was connected to monitoring devices. A time-out was performed. Sedation was administered. Once the patient was adequately sedated, a digital rectal exam was performed and was normal. The scope was then inserted and advanced to the cecum where the appendiceal orifice was identified and photographed. The scope was then slowly withdrawn over greater than 6 minutes. The mucosa was thoroughly inspected. There was a 5 mm polyp in the ascending colon removed with a cold snare and 5 mm polyp in the transverse colon removed with cold snare. There were a few scattered diverticula in the sigmoid colon. The scope was retroflexed in the rectum. No other abnormalities were noted. The scope was straightened and removed. The patient was awakened and brought to recovery. Scope withdrawal time: 15 minutes Sedation time: 25 minutes EBL: 5 mL Findings: 5 mm polyps in the ascending colon and transverse colon and rare scattered sigmoid diverticula Post-procedure Disposition: PACU
== END 2022-11-04 12:23 | disposition home or self-care (01) ==
PROVIDERS: Family Provider Family Medicine; PCP Family Medicine; Referring Provider Surgery; Visit Provider Surgery
PROC: 0DJD8ZZ Inspection of Lower Intestinal Tract, Via Natural or Artificial Opening Endoscopic (ICD-10-PCS; CPT 45378; principal; 2022-11-04 10:15)
DX: Z12.11 Encounter for screening for malignant neoplasm of colon (principal); Z86.010 Personal history of colon polyps; K57.30 Diverticulosis of large intestine without perforation or abscess without bleeding; D12.2 Benign neoplasm of ascending colon
CPT/HCPCS: 45385; J2704

== ENCOUNTER → 2023-05-30 09:11 | Outpatient (CLI) | payer MEDICARE, OTHER, SELFPAY ==
[2023-05-30 09:42] LABS: Add Manual Diff / Slide Review NO; Basophils Absolute Auto 0 /uL (0-100); Basophils Percent Auto 0.6 % (0-2); Eosinophils Absolute Auto 200 /uL (0-450); Eosinophils Percent Auto 3.5 % (2-4); Hematocrit 40.5 % (41-53); Lymphocytes Absolute Auto 1500 /uL (1100-4500); Lymphocytes Percent Auto 31.9 % (25-40); Mean Corpuscular HGB Conc 34.5 % (30-36); Mean Corpuscular Hemoglobin 34.6 PG (26-34); Mean Corpuscular Volume 100.2 fL (80-100); Monocytes Absolute Auto 500 /uL (0-900); Monocytes Percent Auto 10.6 % (3-14); Neutrophils Absolute Auto 2400 /uL (1500-7000); Neutrophils Percent Auto 53.4 % (50-75); Platelet Count 201 X10^3/uL (150-400); Red Blood Cell Count 4.04 X10^6/uL (4.5-5.9); Red Cell Distribution Width 12.3 % (11.6-14.8); White Blood Cell Count 4.6 X10^3/uL (4.5-11.0)
[2023-05-30 09:53] LABS: HEMOLYSIS < 15 (0-50)
[2023-05-30 10:01] LABS: Alanine Aminotransferase 41 IU/L (<50); Albumin 4.4 g/dL (3.5-5.0); Albumin Globulin Ratio 1.6 (1.0-2.8); Alkaline Phosphatase 58 U/L (38-126); Aspartate Aminotransferase 34 IU/L (17-59); BUN Creatinine Ratio 21.1 (6-22); Bilirubin Total 0.8 mg/dL (0.2-1.3); Blood Urea Nitrogen 23 mg/dL (9-20); Carbon Dioxide 29 mmol/L (22-32); Chloride 101 mmol/L (98-107); Cholesterol 176 mg/dL (140-199); Estimated Glomerular Filt Rate > 60 mL/min (>60); Globulin 2.7 g/dL (1.7-4.1); Glucose 100 mg/dL (80-110); HDL Cholesterol 47 mg/dL (40-60); LDL Cholesterol Calculated 100 mg/dL (<100); Potassium 4.2 mmol/L (3.4-5.1); Sodium 136 mmol/L (137-145); Total Protein 7.1 g/dL (6.3-8.2); Triglycerides 146 mg/dL (35-150)
[2023-05-30 10:58] LABS: Prostate Specific Antigen 0.468 ng/mL (0.10-4.00)
[2023-05-31 02:07] LABS: x Labcorp Estim. Avg Glu (eAG) 111 mg/dL (.); x Labcorp Hemoglobin A1c 5.5 % (4.8-5.6)
== END ==
PROVIDERS: Family Provider Family Medicine; PCP Family Medicine; Referring Provider Family Medicine; Visit Provider Family Medicine
DX: E78.5 Hyperlipidemia, unspecified (principal); I10 Essential (primary) hypertension; K21.9 Gastro-esophageal reflux disease without esophagitis; R73.9 Hyperglycemia, unspecified
CPT/HCPCS: 36415; 80053; 80061; 83036; 84153; 85025

== ENCOUNTER → 2023-06-06 15:22 | Outpatient (CLI) | payer MEDICARE, OTHER, SELFPAY ==
--- NOTE | 2023-06-06 15:23 | DI.RAD.S_ITS ---
PROCEDURE: XR KNEE RT 3V INDICATIONS: chronic bilaterally knee pain TECHNIQUE: 3 views of the knee were acquired. COMPARISON: None. FINDINGS: Bones: No fractures or dislocations. Moderate medial and patellofemoral compartment joint space loss and moderate sized patellofemoral compartment spurs. No suspicious bony lesions. Soft tissues: No joint effusion. No suspicious soft tissue calcifications. IMPRESSION: 1. Osteoarthritic changes primarily involving medial and patellofemoral compartment. Dictated by: Malissa Liriano M.D. on 06/06/2023 at 18:00 Approved by: Malissa Liriano M.D. on 06/06/2023 at 18:00
--- NOTE | 2023-06-06 15:23 | DI.RAD.S_ITS ---
PROCEDURE: XR KNEE LT 3V INDICATIONS: chronic bilaterally knee pain TECHNIQUE: 3 views of the knee were acquired. COMPARISON: [facility], CR, XR KNEE RT 3V, 06/06/2023, 15:44. [facility], CR, XR KNEE 4+ VIEWS RIGHT, 03/11/2022, 9:36. FINDINGS: Bones: No fractures or dislocations. No suspicious bony lesions. Mild tricompartmental degenerative joint disease. There is [id number] joint space narrowing in the medial compartment with weight-bearing. Soft tissues: No joint effusion. No suspicious soft tissue calcifications. IMPRESSION: Mild tricompartmental osteoarthritis. Dictated by: Antoine Calvillo M.D. on 06/06/2023 at 16:19 Approved by: Antoine Calvillo M.D. on 06/06/2023 at 16:21
== END ==
PROVIDERS: Family Provider Family Medicine; PCP Family Medicine; Referring Provider Family Medicine; Visit Provider Family Medicine
DX: M17.12 Unilateral primary osteoarthritis, left knee (principal); M25.561 Pain in right knee; M25.562 Pain in left knee
CPT/HCPCS: 73562

== ENCOUNTER → 2023-10-27 08:56 | Outpatient (CLI) | payer MEDICARE, OTHER, SELFPAY ==
--- NOTE | 2023-10-27 08:57 | DI.RAD.S_ITS ---
PROCEDURE: XR LUMBAR SPINE MIN 4V INDICATIONS: acute on chronic right lumbar pain TECHNIQUE: 5 views of the lumbar spine were acquired, including bilateral oblique views. COMPARISON: [facility], CT, CT KIDNEY URETER BLADDER (KUB), 04/04/2021, 13:09. FINDINGS: Bones: Transitional anatomy. 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 Left L5 sacralization. 5 nonrib-bearing vertebrae are present. Minimal scoliosis. No vertebral body compression fractures. No suspicious bony lesions. Small vertebral body osteophytes, increased. Soft tissues: Overlying bowel gas pattern is normal. No suspicious soft tissue calcifications. Small left kidney stone. Oblique images: No pars defects. IMPRESSION: No compression fracture. 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 Dictated by: Ruddy Calderon M.D. on 10/27/2023 at 11:21 Approved by: Ruddy Calderon M.D. on 10/27/2023 at 11:27
== END ==
PROVIDERS: Family Provider Family Medicine; PCP Family Medicine; Referring Provider Physician Assistant; Visit Provider Physician Assistant
DX: Q76.49 Other congenital malformations of spine, not associated with scoliosis (principal); M47.816 Spondylosis without myelopathy or radiculopathy, lumbar region; M54.50 Low back pain, unspecified; G89.29 Other chronic pain
CPT/HCPCS: 72110

== ENCOUNTER 2024-02-16 09:00 | Outpatient (RCR) | payer MEDICARE, OTHER, SELFPAY ==
--- NOTE | 2023-11-29 10:35 | PT.OIE ---
Current Diagnoses Other chronic pain (11/29/23) Low back pain, unspecified (11/29/23) Other congenital malformations of spine, not associated with scoliosis (11/29/23) Abnormal posture (11/29/23) Weakness (11/29/23) Past Medical History (Last Reviewed 06/01/22 @ 16:47 by Char Noel PA-C) Acute pain of right knee Anticardiolipin antibody positive Dvt femoral (deep venous thrombosis) GERD (gastroesophageal reflux disease) Hyperlipidemia Hypertension Impingement syndrome of both shoulders Sprain of anterior cruciate ligament of right knee Ulnar nerve impingement Visit Care Team Role Provider Type Irvin Duran MD Family Provider Physician Primary Care Provider Specialty: Family Practice Address: [address] [place] [address], [facility] Email: [email or web address] Helen Barillas PA-C Attending Provider Advanced Shirt Marker Referring Provider Specialty: Medical Wound Care Address: [address] [place] [address], [id number] Email: [email or web address] Physical Therapy Initial Evaluation PT-OP-A Visit Information Start: 11/17/23 08:55 Freq: Status: Active Protocol: Document 11/29/23 08:52 [facility] (Rec: 11/29/23 10:34 [facility] [id number]) Out-Patient Physical Therapy Visit Information Visit Information Visit Type Initial Evaluation Visit Note 11/23 Visit Start Time 08:52 Visit Stop Time 09:45 Total Visit Minutes 53 Visit Number 1 Number of [place] ATTORNEY Visits 0 PT-OP-B Current Condition Start: 11/17/23 08:55 Freq: Status: Active Protocol: Document 11/29/23 08:52 [facility] (Rec: 11/29/23 10:34 [facility] [id number]) Current Condition History of Current Condition Onset Date decades (about 30 years ago) Current Complaints LBP w/L L5 sacralization History of Current Condition Pt reports he has a LB problem that is a once a year flare up and really bad about every 2 years and gets btter in a week or so. Typically after doing heavy lift etc. About 6 months ago, he couldn't trace it anyting and persisted for a couple months and was minor compared to other months and persisted to about 1 week ago. He twisted and reached behind himself. He has a lumbosacral transitional vertebra when he worked at a [employer] and they did xrays. He was excused from working there. He thinks this is at the root of this ongoing problem. He finds himself listing to one side when its bad to find a comfortable posiiton. He has asked for exercises in past and was given planks. he was doing them and hasn't recently . He would like to develop his back better with the likelihood that this transitional vertebra is the cause. He had a recent xray. When it was bothered most recently, sitting hurt the most and when hiking, it was better. the first flare up 30 years ago was when he shovelled snow for several hours. Pt likes to do heavy work around the house and has made him stear clear of it. He has history of B knee pain. Hx of blood clot in R calf in about 2019. occ has weakness in R LB when pain is worse. Thinks may have arthritis in hips d/t hx of hip soreness after >10 min hikes years ago. 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 Left L5 sacralization. 5 nonrib-bearing vertebrae are present. Minimal scoliosis. No vertebral body compression fractures. No suspicious bony lesions. Small vertebral body osteophytes, increased. Soft tissues: Overlying bowel gas pattern is normal. No suspicious soft tissue calcifications. Small left kidney stone. Oblique images: No pars defects. IMPRESSION: No compression fracture. 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 Treatment Goals Patient/Caregiver Goals Have exercise program to work on to help keep back safe, be able to do heavy work around the house without flare up PT-OP-C Subjective Start: 11/17/23 08:55 Freq: Status: Active Protocol: Document 11/29/23 08:52 [facility] (Rec: 11/29/23 10:34 [facility] [id number]) Patient Questionnaires Oswestry Low Back Index Oswestry Score 5/50 PT-OP-D Balance Start: 11/17/23 08:55 Freq: Status: Active Protocol: Document 11/29/23 08:52 [facility] (Rec: 11/29/23 10:34 [facility] [id number]) Balance Tests Single Limb Standing Single Limb- Right 19 sec Single Limb- Left >30 sec w/inc deviation PT-OP-G Mobility & Gait Start: 11/17/23 08:55 Freq: Status: Active Protocol: Document 11/29/23 08:52 [facility] (Rec: 11/29/23 10:34 [facility] [id number]) OP Gait Assessment Comments Gait Comments dec stance time time LLE, dec wt acceptance and inc trunk collapse w/wt acceptance LLE PT-OP-J Posture/Palpation/Skin Start: 11/17/23 08:55 Freq: Status: Active Protocol: Document 11/29/23 08:52 [facility] (Rec: 11/29/23 10:34 [facility] [id number]) Posture Evaluation [facility] Postural Classification System [facility] Postural Classifications Vertical/Posterior Vertebral Compression Test 4 Elbow Flexion Test 2 Lumbar Protective Mechanism Left AP 1 Lumbar Protective Mechanism Right AP 1 Lumbar Protective Mechanism Left PA 3 Lumbar Protective Mechanism Right PA 3 Comments Posture Comments R pelvic shear; slight, R rot of trunk,mild kyphosis, tends to go into genu recurvatum; slight iliac crest higher on L ; equal greater trochant PT-OP-K Range of Motion Start: 11/17/23 08:55 Freq: Status: Active Protocol: Document 11/29/23 08:52 [facility] (Rec: 11/29/23 10:34 [facility] [id number]) Lumbar Spine Range of Motion Lumbar Spine Active Percentage Flexion 10 Extension 75 Rotation Left 50 Rotation Right 60 Lateral Flexion Left 60 Lateral Flexion Right 75 Comments tightness R w/L SB; pain in bakc and tightnes L w/R SB, PT-OP-L Special Tests Start: 11/17/23 08:55 Freq: Status: Active Protocol: Document 11/29/23 08:52 [facility] (Rec: 11/29/23 10:34 [facility] [id number]) Special Tests Lumbar Spine Special Tests Slump Test Results pos R Straight Leg Raise Test Results pos R; mild HS tightness L PT-OP-M Strength Start: 11/17/23 08:55 Freq: Status: Active Protocol: Document 11/29/23 08:52 [facility] (Rec: 11/29/23 10:34 [facility] [id number]) Hip Strength Hip Manual Muscle Testing Right Flexion (L2) 4- Good- Extension (S1) 4- Good- Abduction 5 Normal Adduction 5 Normal External Rotation 4- Good- Internal Rotation 4 Good Left Flexion (L2) 4- Good- Extension (S1) 4- Good- Abduction 4+ Good+ Adduction 5 Normal External Rotation 4 Good Internal Rotation 5 Normal Knee Strength Knee Manual Muscle Testing Right Flexion (S2) 5 Normal Extension (L3) 5 Normal Left Flexion (S2) 5 Normal Extension (L3) 5 Normal Ankle/Foot Strength Ankle and Foot Manual Muscle Testing Right Dorsiflexion (L4) 5 Normal Plantarflexion (S1) 5 Normal Comments 20 heel raises B -R feels fatigued w/it though Left Dorsiflexion (L4) 5 Normal Plantarflexion (S1) 5 Normal PT-OP-Q Treatments Start: 11/17/23 08:55 Freq: Status: Active Protocol: Document 11/29/23 08:52 [facility] (Rec: 11/29/23 10:34 [facility] [id number]) Therapeutic Exercises Supine Exercises core Supine Exercise Name DL isometric Side bilateral Reps/Minutes 30 sec Comments cues for set up Sidelying Exercises clamshell Side bilateral Equipment Used L3 Reps/Minutes 15 ea Self-Care/Home Management Treatment Education Other Education 15 min: edu to avoid wearing wallet in back pocket. USed model to demo to pt how this affects his positiong; edu to pt on sciatic n tension noted during testing and gait deviations. Discussed w/Pt why movement typically helps pain as it acts as lubrication for the joint. PT-OP-T Assessment and Plan Start: 11/17/23 08:55 Freq: Status: Active Protocol: Document 11/29/23 08:52 [facility] (Rec: 11/29/23 10:34 [facility] [id number]) Physical Therapy Assessment Rehab Potential Rehabilitation Potential Good Evaluation Complexity Number of Personal Factors/Comorbidities 3 or More Number of Body Systems Impaired 4 or More Clinical Presentation at Evaluation Stable Impairments Impairments Balance,Functional Activities, Functional Mobility,Gait,Pain, Posture,ROM,Soft Tissue Mobility,Strength Goals ROM Care Home Goal (LTG) Pt will improve flex of spine to at least to knees when PT blocking pt's pelvis to allow improved capacity for bending over LTG Duration 02/07/24 activity Short Term Goal (STG) Pt will demonstrate appropriate lifting mechanics and be able to lift a box w/20 # w/o inc pain STG Duration 12/29/23 Care Home Goal (LTG) Pt will report return to typical heavy house and yard work w/o inc pain greater than 1/10 LTG Duration 02/07/24 strength Short Term Goal (STG) Pt will be indep w/HEP STG Duration 12/29/23 Dermatology Teacher Goal (LTG) Pt will score at least 5/5 on all LE MMT B and 3/5 in all planes of LPM and EFT of at least 4/5 to allow improved strength to do heavy activities at home. LTG Duration 02/07/24 Assessment Summary Assessment Pt presents w/chronic LBP w/ history of short term flare ups taht improve typically over a week or so, but recent one that lasted close to 6 months, but no as severe. Pain is better but pt notes still some mild pain w/activity, but not severe enough to stop activity. He is worried about doing heavy activity around the home but typically likes to do a lot of yard work. He shows some lack of ROM in spine, R sciatic n tension, weakness in hips and core. He would bneefit from skilled PT to address these deficits. Physical Therapy Plan Frequency and Duration Frequency of Treatment 1-2x/week Duration of treatment (weeks) 10 Plan of Care Start Date 11/29/23 Plan of Care End Date 02/07/24 Therapeutic Interventions Therapeutic Interventions Balance Training,Gait Training ,Home Exercise Program,Joint Mobilizations,Manual Therapy, Neuromuscular Re-education, Patient/Caregiver Education, Self-Care/Home Management,Soft Tissue Mobilization,Taping, Therapeutic Activities, Therapeutic Exercises Modalities Cold Pack/Ice Massage,Electric Stimulation,Hot Packs, Ultrasound Next Visit Focus/Plan Next Note Type Treatment Note Next Visit Plan go over plank form, teach hip hinge, squat form, lunge form, try LTR segmental, paloff press manual to hips, and sciatic n pathway and R QL
--- NOTE | 2023-11-29 10:35 | PT.OPPOC ---
Physical, Occupational & Speech Therapy At [facility] Current Diagnoses Other chronic pain (11/29/23) Low back pain, unspecified (11/29/23) Other congenital malformations of spine, not associated with scoliosis (11/29/23) Abnormal posture (11/29/23) Weakness (11/29/23) Visit Care Team Role Provider Type Irvin Duran MD Family Provider Physician Primary Care Provider Specialty: Family Practice Address: [address] [place] [address], [facility] Email: [email or web address] Helen Barillas [email or web address]-C Attending Provider Advanced Checker Stocker Referring Provider Specialty: Medical Wound Care Address: [address] [place] [address], [facility] Email: [email or web address] Plan Of Care PT-OP-T Assessment and Plan Start: 11/17/23 08:55 Freq: Status: Active Protocol: Document 11/29/23 08:52 [facility] (Rec: 11/29/23 10:34 [facility] [id number]) Physical Therapy Assessment Rehab Potential Rehabilitation Potential Good Evaluation Complexity Number of Personal Factors/Comorbidities 3 or More Number of Body Systems Impaired 4 or More Clinical Presentation at Evaluation Stable Impairments Impairments Balance,Functional Activities, Functional Mobility,Gait,Pain, Posture,ROM,Soft Tissue Mobility,Strength Goals ROM Assisted Goal (LTG) Pt will improve flex of spine to at least to knees when PT blocking pt's pelvis to allow improved capacity for bending over LTG Duration 02/07/24 activity Short Term Goal (STG) Pt will demonstrate appropriate lifting mechanics and be able to lift a box w/20 # w/o inc pain STG Duration 12/29/23 Assisted Goal (LTG) Pt will report return to typical heavy house and yard work w/o inc pain greater than 1/10 LTG Duration 02/07/24 strength Short Term Goal (STG) Pt will be indep w/HEP STG Duration 12/29/23 Stave And Bolt Equalizer Goal (LTG) Pt will score at least 5/5 on all LE MMT B and 3/5 in all planes of LPM and EFT of at least 4/5 to allow improved strength to do heavy activities at home. LTG Duration 02/07/24 Assessment Summary Assessment Pt presents w/chronic LBP w/ history of short term flare ups taht improve typically over a week or so, but recent one that lasted close to 6 months, but no as severe. Pain is better but pt notes still some mild pain w/activity, but not severe enough to stop activity. He is worried about doing heavy activity around the home but typically likes to do a lot of yard work. He shows some lack of ROM in spine, R sciatic n tension, weakness in hips and core. He would bneefit from skilled PT to address these deficits. Physical Therapy Plan Frequency and Duration Frequency of Treatment 1-2x/week Duration of treatment (weeks) 10 Plan of Care Start Date 11/29/23 Plan of Care End Date 02/07/24 Therapeutic Interventions Therapeutic Interventions Balance Training,Gait Training ,Home Exercise Program,Joint Mobilizations,Manual Therapy, Neuromuscular Re-education, Patient/Caregiver Education, Self-Care/Home Management,Soft Tissue Mobilization,Taping, Therapeutic Activities, Therapeutic Exercises Modalities Cold Pack/Ice Massage,Electric Stimulation,Hot Packs, Ultrasound Next Visit Focus/Plan Next Note Type Treatment Note Next Visit Plan go over plank form, teach hip hinge, squat form, lunge form, try LTR segmental, paloff press manual to hips, and sciatic n pathway and R QL Plan of Care Dates Plan of Care Start Date 11/29/23 Plan of Care End Date 02/07/24 Electronically Signed by: Peyton Sidhu, PT 11/29/23 1127 If you are in agreement with this Plan of Care, please return a signed and dated copy. I have reviewed this Plan of Care and certify that the skilled therapy services above are required to meet the patient?s needs. Physician Signature Date Printed Name and Credentials Clinical Instructor Signature Printed Name and Credentials
--- NOTE | 2023-12-01 10:59 | PT.OTN ---
Current Diagnoses Other chronic pain (12/01/23) Low back pain, unspecified (12/01/23) Other congenital malformations of spine, not associated with scoliosis (12/01/23) Abnormal posture (12/01/23) Weakness (12/01/23) Physical Therapy Treatment Note PT-OP-A Visit Information Start: 11/17/23 08:55 Freq: Status: Active Protocol: Document 12/01/23 08:17 [facility] (Rec: 12/01/23 10:39 [facility] [id number]) Out-Patient Physical Therapy Visit Information Visit Information Visit Type Treatment Note Visit Note 12/24 Visit Start Time 08:17 Visit Stop Time 09:02 Total Visit Minutes 45 Visit Number 2 Number of MOTOR [employer] Visits 0 PT-OP-B Current Condition Start: 11/17/23 08:55 Freq: Status: Active Protocol: Document 11/29/23 08:52 [facility] (Rec: 11/29/23 10:34 [facility] [id number]) Current Condition History of Current Condition Onset Date decades (about 30 years ago) Current Complaints LBP w/L L5 sacralization History of Current Condition Pt reports he has a LB problem that is a once a year flare up and really bad about every 2 years and gets btter in a week or so. Typically after doing heavy lift etc. About 6 months ago, he couldn't trace it anyting and persisted for a couple months and was minor compared to other months and persisted to about 1 week ago. He twisted and reached behind himself. He has a lumbosacral transitional vertebra when he worked at a [employer] and they did xrays. He was excused from working there. He thinks this is at the root of this ongoing problem. He finds himself listing to one side when its bad to find a comfortable posiiton. He has asked for exercises in past and was given planks. he was doing them and hasn't recently . He would like to develop his back better with the likelihood that this transitional vertebra is the cause. He had a recent xray. When it was bothered most recently, sitting hurt the most and when hiking, it was better. the first flare up 30 years ago was when he shovelled snow for several hours. Pt likes to do heavy work around the house and has made him stear clear of it. He has history of B knee pain. Hx of blood clot in R calf in about 2019. occ has weakness in R LB when pain is worse. Thinks may have arthritis in hips d/t hx of hip soreness after >10 min hikes years ago. 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 Left L5 sacralization. 5 nonrib-bearing vertebrae are present. Minimal scoliosis. No vertebral body compression fractures. No suspicious bony lesions. Small vertebral body osteophytes, increased. Soft tissues: Overlying bowel gas pattern is normal. No suspicious soft tissue calcifications. Small left kidney stone. Oblique images: No pars defects. IMPRESSION: No compression fracture. 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 Treatment Goals Patient/Caregiver Goals Have exercise program to work on to help keep back safe, be able to do heavy work around the house without flare up PT-OP-C Subjective Start: 11/17/23 08:55 Freq: Status: Active Protocol: Document 12/01/23 08:17 [facility] (Rec: 12/01/23 10:39 [facility] [id number]) OP-PT Subjective Patient Comments Patient Comments Pt reports PT-OP-D Balance Start: 11/17/23 08:55 Freq: Status: Active Protocol: Document 11/29/23 08:52 [facility] (Rec: 11/29/23 10:34 [facility] [id number]) Balance Tests Single Limb Standing Single Limb- Right 19 sec Single Limb- Left >30 sec w/inc deviation PT-OP-G Mobility & Gait Start: 11/17/23 08:55 Freq: Status: Active Protocol: Document 11/29/23 08:52 [facility] (Rec: 11/29/23 10:34 [facility] [id number]) OP Gait Assessment Comments Gait Comments dec stance time time LLE, dec wt acceptance and inc trunk collapse w/wt acceptance LLE PT-OP-J Posture/Palpation/Skin Start: 11/17/23 08:55 Freq: Status: Active Protocol: Document 11/29/23 08:52 [facility] (Rec: 11/29/23 10:34 [facility] [id number]) Posture Evaluation [facility] Postural Classification System [facility] Postural Classifications Vertical/Posterior Vertebral Compression Test 4 Elbow Flexion Test 2 Lumbar Protective Mechanism Left AP 1 Lumbar Protective Mechanism Right AP 1 Lumbar Protective Mechanism Left PA 3 Lumbar Protective Mechanism Right PA 3 Comments Posture Comments R pelvic shear; slight, R rot of trunk,mild kyphosis, tends to go into genu recurvatum; slight iliac crest higher on L ; equal greater trochant PT-OP-K Range of Motion Start: 11/17/23 08:55 Freq: Status: Active Protocol: Document 11/29/23 08:52 [facility] (Rec: 11/29/23 10:34 [facility] [id number]) Lumbar Spine Range of Motion Lumbar Spine Active Percentage Flexion 10 Extension 75 Rotation Left 50 Rotation Right 60 Lateral Flexion Left 60 Lateral Flexion Right 75 Comments tightness R w/L SB; pain in bakc and tightnes L w/R SB, PT-OP-L Special Tests Start: 11/17/23 08:55 Freq: Status: Active Protocol: Document 11/29/23 08:52 [facility] (Rec: 11/29/23 10:34 [facility] [id number]) Special Tests Lumbar Spine Special Tests Slump Test Results pos R Straight Leg Raise Test Results pos R; mild HS tightness L PT-OP-M Strength Start: 11/17/23 08:55 Freq: Status: Active Protocol: Document 11/29/23 08:52 [facility] (Rec: 11/29/23 10:34 [facility] [id number]) Hip Strength Hip Manual Muscle Testing Right Flexion (L2) 4- Good- Extension (S1) 4- Good- Abduction 5 Normal Adduction 5 Normal External Rotation 4- Good- Internal Rotation 4 Good Left Flexion (L2) 4- Good- Extension (S1) 4- Good- Abduction 4+ Good+ Adduction 5 Normal External Rotation 4 Good Internal Rotation 5 Normal Knee Strength Knee Manual Muscle Testing Right Flexion (S2) 5 Normal Extension (L3) 5 Normal Left Flexion (S2) 5 Normal Extension (L3) 5 Normal Ankle/Foot Strength Ankle and Foot Manual Muscle Testing Right Dorsiflexion (L4) 5 Normal Plantarflexion (S1) 5 Normal Comments 20 heel raises B -R feels fatigued w/it though Left Dorsiflexion (L4) 5 Normal Plantarflexion (S1) 5 Normal PT-OP-Q Treatments Start: 11/17/23 08:55 Freq: Status: Active Protocol: Document 12/01/23 08:17 [facility] (Rec: 12/01/23 10:39 [facility] [id number]) Therapeutic Exercises Supine Exercises bridge Supine Exercise Name segmental roll up Side bilateral Reps/Minutes 8 core Supine Exercise Name DL isometric Side bilateral Reps/Minutes 30 sec Comments cues for set up Prone Exercises plank Prone Exercise Name forearm and feet Reps/Minutes 30sec x3 Sidelying Exercises clamshell Side bilateral Equipment Used L3 Reps/Minutes 10 ea Standing Exercises squat Side bilateral Reps/Minutes 15 Comments tap to chair RDL Standing Exercise Name 1. pt holding dowel on back 2. PT holding dowel on back 3. 5 # wt in B hands Side bilateral Reps/Minutes 15 ea paloff press Side bilateral Equipment Used orange band Reps/Minutes 15 ea Other Exercises cat/cow Reps/Minutes 10 Comments w/rock back in flex to inc stretch Manual Therapy Treatment Soft Tissue Mobilization hip Body Location L ITB and glue Mobilization Type Rolling Intensity/Depth Moderate Body Position Hooklying PT-OP-T Assessment and Plan Start: 11/17/23 08:55 Freq: Status: Active Protocol: Document 12/01/23 08:17 [facility] (Rec: 12/01/23 10:39 [facility] [id number]) Physical Therapy Assessment Goals ROM Senior Living Goal (LTG) Pt will improve flex of spine to at least to knees when PT blocking pt's pelvis to allow improved capacity for bending over LTG Duration 02/07/24 activity Short Term Goal (STG) Pt will demonstrate appropriate lifting mechanics and be able to lift a box w/20 # w/o inc pain STG Duration 12/29/23 Senior Living Goal (LTG) Pt will report return to typical heavy house and yard work w/o inc pain greater than 1/10 LTG Duration 02/07/24 strength Short Term Goal (STG) Pt will be indep w/HEP STG Duration 12/29/23 Senior Living Goal (LTG) Pt will score at least 5/5 on all LE MMT B and 3/5 in all planes of LPM and EFT of at least 4/5 to allow improved strength to do heavy activities at home. LTG Duration 02/07/24 Assessment Summary Assessment Pt did well with exercises and was able to advance through w /education of importance of these exercises. He does require a little cueing w/each for form. Improved hip IR after manual Physical Therapy Plan Next Visit Focus/Plan Next Note Type Treatment Note Next Visit Plan review plank form, teach hip hinge, squat form, lunge form, try LTR segmental, paloff press manual to hips, and sciatic n pathway and R QL
--- NOTE | 2023-12-05 11:04 | PT.OTN ---
Current Diagnoses Other chronic pain (12/05/23) Low back pain, unspecified (12/05/23) Other congenital malformations of spine, not associated with scoliosis (12/05/23) Abnormal posture (12/05/23) Weakness (12/05/23) Physical Therapy Treatment Note PT-OP-A Visit Information Start: 11/17/23 08:55 Freq: Status: Active Protocol: Document 12/05/23 09:52 [facility] (Rec: 12/05/23 11:03 [facility] [id number]) Out-Patient Physical Therapy Visit Information Visit Information Visit Type Treatment Note Visit Note 01/21 Visit Start Time 09:53 Visit Stop Time 10:35 Total Visit Minutes 43 Visit Number 3 Number of PILATES COORDINATOR Visits 0 PT-OP-B Current Condition Start: 11/17/23 08:55 Freq: Status: Active Protocol: Document 11/29/23 08:52 [facility] (Rec: 11/29/23 10:34 [facility] [id number]) Current Condition History of Current Condition Onset Date decades (about 30 years ago) Current Complaints LBP w/L L5 sacralization History of Current Condition Pt reports he has a LB problem that is a once a year flare up and really bad about every 2 years and gets btter in a week or so. Typically after doing heavy lift etc. About 6 months ago, he couldn't trace it anyting and persisted for a couple months and was minor compared to other months and persisted to about 1 week ago. He twisted and reached behind himself. 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 He was excused from working there. He thinks this is at the root of this ongoing problem. He finds himself listing to one side when its bad to find a comfortable posiiton. He has asked for exercises in past and was given planks. he was doing them and hasn't recently . He would like to develop his back better with the likelihood that this transitional vertebra is the cause. He had a recent xray. When it was bothered most recently, sitting hurt the most and when hiking, it was better. the first flare up 30 years ago was when he shovelled snow for several hours. Pt likes to do heavy work around the house and has made him stear clear of it. He has history of B knee pain. Hx of blood clot in R calf in about 2019. occ has weakness in R LB when pain is worse. Thinks may have arthritis in hips d/t hx of hip soreness after >10 min hikes years ago. 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 Left L5 sacralization. 5 nonrib-bearing vertebrae are present. Minimal scoliosis. No vertebral body compression fractures. No suspicious bony lesions. Small vertebral body osteophytes, increased. Soft tissues: Overlying bowel gas pattern is normal. No suspicious soft tissue calcifications. Small left kidney stone. Oblique images: No pars defects. IMPRESSION: No compression fracture. 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 Treatment Goals Patient/Caregiver Goals Have exercise program to work on to help keep back safe, be able to do heavy work around the house without flare up PT-OP-C Subjective Start: 11/17/23 08:55 Freq: Status: Active Protocol: Document 12/05/23 09:52 [facility] (Rec: 12/05/23 11:03 [facility] [id number]) OP-PT Subjective Patient Comments Patient Comments Pt reports sleeping on his belly, inc his back pain. PT-OP-D Balance Start: 11/17/23 08:55 Freq: Status: Active Protocol: Document 11/29/23 08:52 [facility] (Rec: 11/29/23 10:34 [facility] [id number]) Balance Tests Single Limb Standing Single Limb- Right 19 sec Single Limb- Left >30 sec w/inc deviation PT-OP-G Mobility & Gait Start: 11/17/23 08:55 Freq: Status: Active Protocol: Document 11/29/23 08:52 [facility] (Rec: 11/29/23 10:34 [facility] [id number]) OP Gait Assessment Comments Gait Comments dec stance time time LLE, dec wt acceptance and inc trunk collapse w/wt acceptance LLE PT-OP-J Posture/Palpation/Skin Start: 11/17/23 08:55 Freq: Status: Active Protocol: Document 11/29/23 08:52 [facility] (Rec: 11/29/23 10:34 [facility] [id number]) Posture Evaluation Julissa Postural Classification System Julissa Postural Classifications Vertical/Posterior Vertebral Compression Test 4 Elbow Flexion Test 2 Lumbar Protective Mechanism Left AP 1 Lumbar Protective Mechanism Right AP 1 Lumbar Protective Mechanism Left PA 3 Lumbar Protective Mechanism Right PA 3 Comments Posture Comments R pelvic shear; slight, R rot of trunk,mild kyphosis, tends to go into genu recurvatum; slight iliac crest higher on L ; equal greater trochant PT-OP-K Range of Motion Start: 11/17/23 08:55 Freq: Status: Active Protocol: Document 11/29/23 08:52 [facility] (Rec: 11/29/23 10:34 [facility] [id number]) Lumbar Spine Range of Motion Lumbar Spine Active Percentage Flexion 10 Extension 75 Rotation Left 50 Rotation Right 60 Lateral Flexion Left 60 Lateral Flexion Right 75 Comments tightness R w/L SB; pain in bakc and tightnes L w/R SB, PT-OP-L Special Tests Start: 11/17/23 08:55 Freq: Status: Active Protocol: Document 11/29/23 08:52 [facility] (Rec: 11/29/23 10:34 [facility] [id number]) Special Tests Lumbar Spine Special Tests Slump Test Results pos R Straight Leg Raise Test Results pos R; mild HS tightness L PT-OP-M Strength Start: 11/17/23 08:55 Freq: Status: Active Protocol: Document 11/29/23 08:52 [facility] (Rec: 11/29/23 10:34 [facility] [id number]) Hip Strength Hip Manual Muscle Testing Right Flexion (L2) 4- Good- Extension (S1) 4- Good- Abduction 5 Normal Adduction 5 Normal External Rotation 4- Good- Internal Rotation 4 Good Left Flexion (L2) 4- Good- Extension (S1) 4- Good- Abduction 4+ Good+ Adduction 5 Normal External Rotation 4 Good Internal Rotation 5 Normal Knee Strength Knee Manual Muscle Testing Right Flexion (S2) 5 Normal Extension (L3) 5 Normal Left Flexion (S2) 5 Normal Extension (L3) 5 Normal Ankle/Foot Strength Ankle and Foot Manual Muscle Testing Right Dorsiflexion (L4) 5 Normal Plantarflexion (S1) 5 Normal Comments 20 heel raises B -R feels fatigued w/it though Left Dorsiflexion (L4) 5 Normal Plantarflexion (S1) 5 Normal PT-OP-Q Treatments Start: 11/17/23 08:55 Freq: Status: Active Protocol: Document 12/05/23 09:52 [facility] (Rec: 12/05/23 11:03 [facility] [id number]) Therapeutic Exercises Supine Exercises LTR Supine Exercise Name segmental control Side bilateral Reps/Minutes 10 bridge Supine Exercise Name segmental roll up Side bilateral Reps/Minutes 8 core Supine Exercise Name DL isometric Side bilateral Reps/Minutes 30 sec Comments cues for set up Prone Exercises plank Prone Exercise Name forearm and feet Reps/Minutes 30sec x2 Sidelying Exercises clamshell Side right Equipment Used L3 Reps/Minutes 10 ea Standing Exercises squat Side bilateral Equipment Used 1. w/o wt 2. w/5# in ea hand Reps/Minutes 10 ea Comments tap to chair RDL Standing Exercise Name 1. PT holding dowel 2. pt holding 5# B Side bilateral Reps/Minutes 15 ea Comments cues for only going until feel HS tension paloff press Side bilateral Equipment Used green band Reps/Minutes 1. 15 BUE 2. uni UE on ea side x8 Other Exercises cat/cow Reps/Minutes 10 Comments w/rock back in flex to inc stretch Manual Therapy Treatment Soft Tissue Mobilization LB Body Location ES LS Mobilization Type Rolling Intensity/Depth Moderate Body Position Sidelying hip Body Location L ITB and glute Mobilization Type Rolling Intensity/Depth Moderate Body Position Hooklying Comments w/ IR Joint Mobilizations hip Joint B Comments IR free the ball FM in hooklying PT-OP-T Assessment and Plan Start: 11/17/23 08:55 Freq: Status: Active Protocol: Document 12/05/23 09:52 [facility] (Rec: 12/05/23 11:03 [facility] [id number]) Physical Therapy Assessment Goals ROM Rn Womens Health Goal (LTG) Pt will improve flex of spine to at least to knees when PT blocking pt's pelvis to allow improved capacity for bending over LTG Duration 02/07/24 activity Short Term Goal (STG) Pt will demonstrate appropriate lifting mechanics and be able to lift a box w/20 # w/o inc pain STG Duration 12/29/23 Detention Goal (LTG) Pt will report return to typical heavy house and yard work w/o inc pain greater than 1/10 LTG Duration 02/07/24 strength Short Term Goal (STG) Pt will be indep w/HEP STG Duration 12/29/23 Detention Goal (LTG) Pt will score at least 5/5 on all LE MMT B and 3/5 in all planes of LPM and EFT of at least 4/5 to allow improved strength to do heavy activities at home. LTG Duration 02/07/24 Assessment Summary Assessment cues for breathing w/core exercises and cues needed w/ RDL still and w/plank and supine exercises. He had improved B hip IR after manual . Physical Therapy Plan Frequency and Duration Frequency of Treatment 1-2x/week Duration of treatment (weeks) 10 Plan of Care Start Date 11/29/23 Plan of Care End Date 02/07/24 Next Visit Focus/Plan Next Note Type Treatment Note Next Visit Plan review exercises, work on lunge form; cont manual to hips, sciatic n path and R QL
--- NOTE | 2023-12-15 11:18 | PT.OTN ---
Current Diagnoses Other chronic pain (12/15/23) Low back pain, unspecified (12/15/23) Other congenital malformations of spine, not associated with scoliosis (12/15/23) Abnormal posture (12/15/23) Weakness (12/15/23) Physical Therapy Treatment Note PT-OP-A Visit Information Start: 11/17/23 08:55 Freq: Status: Active Protocol: Document 12/15/23 10:34 [facility] (Rec: 12/15/23 11:18 [facility] [id number]) Out-Patient Physical Therapy Visit Information Visit Information Visit Type Treatment Note Visit Note 02/21 Visit Start Time 10:36 Visit Stop Time 11:15 Visit Number 4 Number of EDITORIAL INTERN Visits 0 PT-OP-B Current Condition Start: 11/17/23 08:55 Freq: Status: Active Protocol: Document 11/29/23 08:52 [facility] (Rec: 11/29/23 10:34 [facility] [id number]) Current Condition History of Current Condition Onset Date decades (about 30 years ago) Current Complaints LBP w/L L5 sacralization History of Current Condition Pt reports he has a LB problem that is a once a year flare up and really bad about every 2 years and gets btter in a week or so. Typically after doing heavy lift etc. About 6 months ago, he couldn't trace it anyting and persisted for a couple months and was minor compared to other months and persisted to about 1 week ago. He twisted and reached behind himself. 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 He was excused from working there. He thinks this is at the root of this ongoing problem. He finds himself listing to one side when its bad to find a comfortable posiiton. He has asked for exercises in past and was given planks. he was doing them and hasn't recently . He would like to develop his back better with the likelihood that this transitional vertebra is the cause. He had a recent xray. When it was bothered most recently, sitting hurt the most and when hiking, it was better. the first flare up 30 years ago was when he shovelled snow for several hours. Pt likes to do heavy work around the house and has made him stear clear of it. He has history of B knee pain. Hx of blood clot in R calf in about 2019. occ has weakness in R LB when pain is worse. Thinks may have arthritis in hips d/t hx of hip soreness after >10 min hikes years ago. 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 Left L5 sacralization. 5 nonrib-bearing vertebrae are present. Minimal scoliosis. No vertebral body compression fractures. No suspicious bony lesions. Small vertebral body osteophytes, increased. Soft tissues: Overlying bowel gas pattern is normal. No suspicious soft tissue calcifications. Small left kidney stone. Oblique images: No pars defects. IMPRESSION: No compression fracture. 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 Treatment Goals Patient/Caregiver Goals Have exercise program to work on to help keep back safe, be able to do heavy work around the house without flare up PT-OP-C Subjective Start: 11/17/23 08:55 Freq: Status: Active Protocol: Document 12/15/23 10:34 [facility] (Rec: 12/15/23 11:18 [facility] [id number]) OP-PT Subjective Patient Comments Patient Comments Pt reports he is tweaky a little today. thinks it may be how he slept PT-OP-D Balance Start: 11/17/23 08:55 Freq: Status: Active Protocol: Document 11/29/23 08:52 [facility] (Rec: 11/29/23 10:34 [facility] [id number]) Balance Tests Single Limb Standing Single Limb- Right 19 sec Single Limb- Left >30 sec w/inc deviation PT-OP-G Mobility & Gait Start: 11/17/23 08:55 Freq: Status: Active Protocol: Document 11/29/23 08:52 [facility] (Rec: 11/29/23 10:34 [facility] [id number]) OP Gait Assessment Comments Gait Comments dec stance time time LLE, dec wt acceptance and inc trunk collapse w/wt acceptance LLE PT-OP-J Posture/Palpation/Skin Start: 11/17/23 08:55 Freq: Status: Active Protocol: Document 11/29/23 08:52 [facility] (Rec: 11/29/23 10:34 [facility] [id number]) Posture Evaluation Julissa Postural Classification System Julissa Postural Classifications Vertical/Posterior Vertebral Compression Test 4 Elbow Flexion Test 2 Lumbar Protective Mechanism Left AP 1 Lumbar Protective Mechanism Right AP 1 Lumbar Protective Mechanism Left PA 3 Lumbar Protective Mechanism Right PA 3 Comments Posture Comments R pelvic shear; slight, R rot of trunk,mild kyphosis, tends to go into genu recurvatum; slight iliac crest higher on L ; equal greater trochant PT-OP-K Range of Motion Start: 11/17/23 08:55 Freq: Status: Active Protocol: Document 11/29/23 08:52 [facility] (Rec: 11/29/23 10:34 [facility] [id number]) Lumbar Spine Range of Motion Lumbar Spine Active Percentage Flexion 10 Extension 75 Rotation Left 50 Rotation Right 60 Lateral Flexion Left 60 Lateral Flexion Right 75 Comments tightness R w/L SB; pain in bakc and tightnes L w/R SB, PT-OP-L Special Tests Start: 11/17/23 08:55 Freq: Status: Active Protocol: Document 11/29/23 08:52 [facility] (Rec: 11/29/23 10:34 [facility] [id number]) Special Tests Lumbar Spine Special Tests Slump Test Results pos R Straight Leg Raise Test Results pos R; mild HS tightness L PT-OP-M Strength Start: 11/17/23 08:55 Freq: Status: Active Protocol: Document 11/29/23 08:52 [facility] (Rec: 11/29/23 10:34 [facility] [id number]) Hip Strength Hip Manual Muscle Testing Right Flexion (L2) 4- Good- Extension (S1) 4- Good- Abduction 5 Normal Adduction 5 Normal External Rotation 4- Good- Internal Rotation 4 Good Left Flexion (L2) 4- Good- Extension (S1) 4- Good- Abduction 4+ Good+ Adduction 5 Normal External Rotation 4 Good Internal Rotation 5 Normal Knee Strength Knee Manual Muscle Testing Right Flexion (S2) 5 Normal Extension (L3) 5 Normal Left Flexion (S2) 5 Normal Extension (L3) 5 Normal Ankle/Foot Strength Ankle and Foot Manual Muscle Testing Right Dorsiflexion (L4) 5 Normal Plantarflexion (S1) 5 Normal Comments 20 heel raises B -R feels fatigued w/it though Left Dorsiflexion (L4) 5 Normal Plantarflexion (S1) 5 Normal PT-OP-Q Treatments Start: 11/17/23 08:55 Freq: Status: Active Protocol: Document 12/15/23 10:34 [facility] (Rec: 12/15/23 11:18 [facility] [id number]) Therapeutic Exercises Supine Exercises LTR Supine Exercise Name segmental control Side bilateral Reps/Minutes 10 Prone Exercises plank Prone Exercise Name forearm and feet Reps/Minutes 30sec x2 Comments cue for only head position Standing Exercises RDL Standing Exercise Name 1. DL 2. SL Side bilateral Reps/Minutes 1. 5 2. 2x10 ea Comments cues for only going until feel HS tension & neutral back PT-OP-T Assessment and Plan Start: 11/17/23 08:55 Freq: Status: Active Protocol: Document 12/15/23 10:34 [facility] (Rec: 12/15/23 11:18 [facility] [id number]) Physical Therapy Assessment Goals ROM Residential Goal (LTG) Pt will improve flex of spine to at least to knees when PT blocking pt's pelvis to allow improved capacity for bending over LTG Duration 02/07/24 activity Short Term Goal (STG) Pt will demonstrate appropriate lifting mechanics and be able to lift a box w/20 # w/o inc pain STG Duration 12/29/23 Residential Goal (LTG) Pt will report return to typical heavy house and yard work w/o inc pain greater than 1/10 LTG Duration 02/07/24 strength Short Term Goal (STG) Pt will be indep w/HEP STG Duration 12/29/23 [employer] Attendant Goal (LTG) Pt will score at least 5/5 on all LE MMT B and 3/5 in all planes of LPM and EFT of at least 4/5 to allow improved strength to do heavy activities at home. LTG Duration 02/07/24 Assessment Summary Assessment Pt had limited R SB, flex, and ext w/some discomofrt at start of session that improved at end of session t no discomfort w/flex and ext and improved range and improved R SB range and less pain w/R SB. Less cues needed for plank position. Still cues needed w/ RDLs Physical Therapy Plan Frequency and Duration Frequency of Treatment 1-2x/week Duration of treatment (weeks) 10 Plan of Care Start Date 11/29/23 Plan of Care End Date 02/07/24 Next Visit Focus/Plan Next Note Type Treatment Note Next Visit Plan cont to work on core and hip stability; manaul to hips and innominate as neede and lumbar spine for R Sb
--- NOTE | 2023-12-22 11:17 | PT.OTN ---
Current Diagnoses Other chronic pain (12/22/23) Low back pain, unspecified (12/22/23) Other congenital malformations of spine, not associated with scoliosis (12/22/23) Abnormal posture (12/22/23) Weakness (12/22/23) Physical Therapy Treatment Note PT-OP-A Visit Information Start: 11/17/23 08:55 Freq: Status: Active Protocol: Document 12/22/23 10:33 SP (Rec: 12/22/23 11:41 SP [id number]) Out-Patient Physical Therapy Visit Information Visit Information Visit Type Treatment Note Visit Note 03/23 Visit Start Time 10:33 Visit Stop Time 11:17 Visit Number 5 Number of MEDICAL ANTHROPOLOGY DIRECTOR Visits 1 PT-OP-B Current Condition Start: 11/17/23 08:55 Freq: Status: Active Protocol: Document 11/29/23 08:52 LR (Rec: 11/29/23 10:34 [facility] [id number]) Current Condition History of Current Condition Onset Date decades (about 30 years ago) Current Complaints LBP w/L L5 sacralization History of Current Condition Pt reports he has a LB problem that is a once a year flare up and really bad about every 2 years and gets btter in a week or so. Typically after doing heavy lift etc. About 6 months ago, he couldn't trace it anyting and persisted for a couple months and was minor compared to other months and persisted to about 1 week ago. He twisted and reached behind himself. 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 and they did xrays. He was excused from working there. He thinks this is at the root of this ongoing problem. He finds himself listing to one side when its bad to find a comfortable posiiton. He has asked for exercises in past and was given planks. he was doing them and hasn't recently . He would like to develop his back better with the likelihood that this transitional vertebra is the cause. He had a recent xray. When it was bothered most recently, sitting hurt the most and when hiking, it was better. the first flare up 30 years ago was when he shovelled snow for several hours. Pt likes to do heavy work around the house and has made him stear clear of it. He has history of B knee pain. Hx of blood clot in R calf in about 2019. occ has weakness in R LB when pain is worse. Thinks may have arthritis in hips d/t hx of hip soreness after >10 min hikes years ago. 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 Left L5 sacralization. 5 nonrib-bearing vertebrae are present. Minimal scoliosis. No vertebral body compression fractures. No suspicious bony lesions. Small vertebral body osteophytes, increased. Soft tissues: Overlying bowel gas pattern is normal. No suspicious soft tissue calcifications. Small left kidney stone. Oblique images: No pars defects. IMPRESSION: No compression fracture. 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 Treatment Goals Patient/Caregiver Goals Have exercise program to work on to help keep back safe, be able to do heavy work around the house without flare up PT-OP-C Subjective Start: 11/17/23 08:55 Freq: Status: Active Protocol: Document 12/22/23 10:33 SP (Rec: 12/22/23 11:41 SP [id number]) OP-PT Subjective Patient Comments Patient Comments Pt reports was pretty sore after 2 tx ago from manual at hip and low back took 2 days to recover. He states does alot tandem and started trying close his eyes, unstable at first then improves. states only uses pillow under head on his back and side, trying not to sleep in stomach because hurt back due to arching. PT-OP-D Balance Start: 11/17/23 08:55 Freq: Status: Active Protocol: Document 11/29/23 08:52 [facility] (Rec: 11/29/23 10:34 [facility] [id number]) Balance Tests Single Limb Standing Single Limb- Right 19 sec Single Limb- Left >30 sec w/inc deviation PT-OP-G Mobility & Gait Start: 11/17/23 08:55 Freq: Status: Active Protocol: Document 11/29/23 08:52 [facility] (Rec: 11/29/23 10:34 [facility] [id number]) OP Gait Assessment Comments Gait Comments dec stance time time LLE, dec wt acceptance and inc trunk collapse w/wt acceptance LLE PT-OP-J Posture/Palpation/Skin Start: 11/17/23 08:55 Freq: Status: Active Protocol: Document 11/29/23 08:52 [facility] (Rec: 11/29/23 10:34 [facility] [id number]) Posture Evaluation [facility] Postural Classification System Julissa Postural Classifications Vertical/Posterior Vertebral Compression Test 4 Elbow Flexion Test 2 Lumbar Protective Mechanism Left AP 1 Lumbar Protective Mechanism Right AP 1 Lumbar Protective Mechanism Left PA 3 Lumbar Protective Mechanism Right PA 3 Comments Posture Comments R pelvic shear; slight, R rot of trunk,mild kyphosis, tends to go into genu recurvatum; slight iliac crest higher on L ; equal greater trochant PT-OP-K Range of Motion Start: 11/17/23 08:55 Freq: Status: Active Protocol: Document 11/29/23 08:52 [facility] (Rec: 11/29/23 10:34 [facility] [id number]) Lumbar Spine Range of Motion Lumbar Spine Active Percentage Flexion 10 Extension 75 Rotation Left 50 Rotation Right 60 Lateral Flexion Left 60 Lateral Flexion Right 75 Comments tightness R w/L SB; pain in bakc and tightnes L w/R SB, PT-OP-L Special Tests Start: 11/17/23 08:55 Freq: Status: Active Protocol: Document 11/29/23 08:52 [facility] (Rec: 11/29/23 10:34 [facility] [id number]) Special Tests Lumbar Spine Special Tests Slump Test Results pos R Straight Leg Raise Test Results pos R; mild HS tightness L PT-OP-M Strength Start: 11/17/23 08:55 Freq: Status: Active Protocol: Document 11/29/23 08:52 [facility] (Rec: 11/29/23 10:34 [facility] [id number]) Hip Strength Hip Manual Muscle Testing Right Flexion (L2) 4- Good- Extension (S1) 4- Good- Abduction 5 Normal Adduction 5 Normal External Rotation 4- Good- Internal Rotation 4 Good Left Flexion (L2) 4- Good- Extension (S1) 4- Good- Abduction 4+ Good+ Adduction 5 Normal External Rotation 4 Good Internal Rotation 5 Normal Knee Strength Knee Manual Muscle Testing Right Flexion (S2) 5 Normal Extension (L3) 5 Normal Left Flexion (S2) 5 Normal Extension (L3) 5 Normal Ankle/Foot Strength Ankle and Foot Manual Muscle Testing Right Dorsiflexion (L4) 5 Normal Plantarflexion (S1) 5 Normal Comments 20 heel raises B -R feels fatigued w/it though Left Dorsiflexion (L4) 5 Normal Plantarflexion (S1) 5 Normal PT-OP-Q Treatments Start: 11/17/23 08:55 Freq: Status: Active Protocol: Document 12/22/23 10:33 SP (Rec: 12/22/23 11:41 SP [id number]) Gym Equipment Therapeutic Ball pelvic tilts Exercise Details anterior/posterior Ball Size/Color 75cm Body Position seated Reps/Duration 10 reps Comments tactile and VCs stationary legs and trunk, SLOW pacing movement, improved LS mobility and control with better carryover into quadruped cat/ cow Therapeutic Exercises Supine Exercises LTR Supine Exercise Name segmental control Side bilateral Reps/Minutes 10 Comments cued breath and slower pacing range can stabilize with breath allowance bridge Supine Exercise Name segmental roll up Side bilateral Reps/Minutes 8 Comments improve, occ cue slower pacing and breath allowance Prone Exercises plank Prone Exercise Name forearm and feet Reps/Minutes 45 sec, 60 sec Comments cue for only head position, chin nod/retraction NS Standing Exercises SL sliders Standing Exercise Name initiated in PT Side bilateral Equipment Used slider under moving ft Reps/Minutes 5 reps x2 sets Comments cued stationary knee with/ behind forefoot- good HS/post/ lat hip effort RDL Standing Exercise Name 1. DL 2. SL Side bilateral Equipment Used dowel, use mirror for self awareness alignment Reps/Minutes 1. 5 2. 2x10 ea Comments cues rhomboid fac, hip hinge, level pelvis, knee neutral more lat /c mid ft Other Exercises child's pose Other Exercise Name initiated in PT- discussed/ performed cat>mirtha sit back LS/post pelvis str Side bilateral Reps/Minutes 30SH x3 between cat/cow Comments good fee cat/cow Reps/Minutes 10 x2 Comments tactile cues LS anterior tilt isolation, improved post pelvic tilt on Tball Self-Care/Home Management Treatment Education Other Education Education on sleep positioning use pillows between BLEs on side and behind back, neck needed for neutral CS. Under thighs supine support LS. Under pelvis prone but discourage due to LS and core weakness. Pt verbalized understanding and will try it and see how back/hips feel. Time spent anatomy and use of posturing/core and hip engagement to support neutral spine back to allow improved stability for SL activities. PT-OP-T Assessment and Plan Start: 11/17/23 08:55 Freq: Status: Active Protocol: Document 12/22/23 10:33 SP (Rec: 12/22/23 11:41 SP [id number]) Physical Therapy Assessment Goals ROM Track Production Engineer Goal (LTG) Pt will improve flex of spine to at least to knees when PT blocking pt's pelvis to allow improved capacity for bending over LTG Duration 02/07/24 activity Short Term Goal (STG) Pt will demonstrate appropriate lifting mechanics and be able to lift a box w/20 # w/o inc pain STG Duration 12/29/23 [facility] Goal (LTG) Pt will report return to typical heavy house and yard work w/o inc pain greater than 1/10 LTG Duration 02/07/24 strength Short Term Goal (STG) Pt will be indep w/HEP STG Duration 12/29/23 [facility]fp Goal (LTG) Pt will score at least 5/5 on all LE MMT B and 3/5 in all planes of LPM and EFT of at least 4/5 to allow improved strength to do heavy activities at home. LTG Duration 02/07/24 Assessment Summary Assessment INitially pelvis L PSIS not as mobile into flexion, improved post ther ex, no notice ES on R more prominent during plank but painfree. Pt was challenged LS anterior/ posterior pelvic tilts initially in quadruped, instructed seated on tball with improved ROM tactile cues for no trunk/LE recruitment. Improved carryover into quadruped with cues slower pacing. He report more hip abd /glut engagement during SL sliders that provided with edcuation for posturing/core/ hip abd engagment allowed closer to hip hinge SL hip hinge RDL and reduction in calf/foot tiring by end tx. Pt reported painfree planks end tx up to 1 min today. Pt verbalized understanding mechanics today's tx for carryover more dynamic mobiltiy out in community trails for safety and strength . Physical Therapy Plan Frequency and Duration Frequency of Treatment 1-2x/week Duration of treatment (weeks) 10 Plan of Care Start Date 11/29/23 Plan of Care End Date 02/07/24 Therapeutic Interventions Therapeutic Interventions Balance Training,Gait Training ,Home Exercise Program,Joint Mobilizations,Manual Therapy, Neuromuscular Re-education, Patient/Caregiver Education, Self-Care/Home Management,Soft Tissue Mobilization,Taping, Therapeutic Activities, Therapeutic Exercises Modalities Cold Pack/Ice Massage,Electric Stimulation,Hot Packs, Ultrasound Next Visit Focus/Plan Next Note Type Treatment Note Next Visit Plan Recheck LTR and pelvic tilts, continue SLS activities, add sliders and SLS to HEP EO. POC: cont to work on core and hip stability; manual to hips and innominate as neede and lumbar spine for R Sb
--- NOTE | 2023-12-28 15:18 | PT.OTN ---
Current Diagnoses Other chronic pain (12/28/23) Low back pain, unspecified (12/28/23) Other congenital malformations of spine, not associated with scoliosis (12/28/23) Abnormal posture (12/28/23) Weakness (12/28/23) Physical Therapy Treatment Note PT-OP-A Visit Information Start: 11/17/23 08:55 Freq: Status: Active Protocol: Document 12/28/23 10:36 [facility] (Rec: 12/28/23 15:17 [facility] [id number]) Out-Patient Physical Therapy Visit Information Visit Information Visit Type Treatment Note Visit Note 04/23 Visit Start Time 10:37 Visit Stop Time 11:17 Visit Number 6 Number of ADVERTISING DESIGNER Visits 0 PT-OP-B Current Condition Start: 11/17/23 08:55 Freq: Status: Active Protocol: Document 11/29/23 08:52 [facility] (Rec: 11/29/23 10:34 [facility] [id number]) Current Condition History of Current Condition Onset Date decades (about 30 years ago) Current Complaints LBP w/L L5 sacralization History of Current Condition Pt reports he has a LB problem that is a once a year flare up and really bad about every 2 years and gets btter in a week or so. Typically after doing heavy lift etc. About 6 months ago, he couldn't trace it anyting and persisted for a couple months and was minor compared to other months and persisted to about 1 week ago. He twisted and reached behind himself. 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 He was excused from working there. He thinks this is at the root of this ongoing problem. He finds himself listing to one side when its bad to find a comfortable posiiton. He has asked for exercises in past and was given planks. he was doing them and hasn't recently . He would like to develop his back better with the likelihood that this transitional vertebra is the cause. He had a recent xray. When it was bothered most recently, sitting hurt the most and when hiking, it was better. the first flare up 30 years ago was when he shovelled snow for several hours. Pt likes to do heavy work around the house and has made him stear clear of it. He has history of B knee pain. Hx of blood clot in R calf in about 2019. occ has weakness in R LB when pain is worse. Thinks may have arthritis in hips d/t hx of hip soreness after >10 min hikes years ago. 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 Left L5 sacralization. 5 nonrib-bearing vertebrae are present. Minimal scoliosis. No vertebral body compression fractures. No suspicious bony lesions. Small vertebral body osteophytes, increased. Soft tissues: Overlying bowel gas pattern is normal. No suspicious soft tissue calcifications. Small left kidney stone. Oblique images: No pars defects. IMPRESSION: No compression fracture. 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 Treatment Goals Patient/Caregiver Goals Have exercise program to work on to help keep back safe, be able to do heavy work around the house without flare up PT-OP-C Subjective Start: 11/17/23 08:55 Freq: Status: Active Protocol: Document 12/28/23 10:36 [facility] (Rec: 12/28/23 15:17 [facility] [id number]) OP-PT Subjective Patient Comments Patient Comments pt reports overall back is good if doesn't sleep funny. NOtes he did notice a tweak is his back when pulling his biek out of the back of his truck. PT-OP-D Balance Start: 11/17/23 08:55 Freq: Status: Active Protocol: Document 11/29/23 08:52 [facility] (Rec: 11/29/23 10:34 [facility] [id number]) Balance Tests Single Limb Standing Single Limb- Right 19 sec Single Limb- Left >30 sec w/inc deviation PT-OP-G Mobility & Gait Start: 11/17/23 08:55 Freq: Status: Active Protocol: Document 11/29/23 08:52 [facility] (Rec: 11/29/23 10:34 [facility] [id number]) OP Gait Assessment Comments Gait Comments dec stance time time LLE, dec wt acceptance and inc trunk collapse w/wt acceptance LLE PT-OP-J Posture/Palpation/Skin Start: 11/17/23 08:55 Freq: Status: Active Protocol: Document 11/29/23 08:52 [facility] (Rec: 11/29/23 10:34 [facility] [id number]) Posture Evaluation Julissa Postural Classification System Julissa Postural Classifications Vertical/Posterior Vertebral Compression Test 4 Elbow Flexion Test 2 Lumbar Protective Mechanism Left AP 1 Lumbar Protective Mechanism Right AP 1 Lumbar Protective Mechanism Left PA 3 Lumbar Protective Mechanism Right PA 3 Comments Posture Comments R pelvic shear; slight, R rot of trunk,mild kyphosis, tends to go into genu recurvatum; slight iliac crest higher on L ; equal greater trochant PT-OP-K Range of Motion Start: 11/17/23 08:55 Freq: Status: Active Protocol: Document 11/29/23 08:52 [facility] (Rec: 11/29/23 10:34 [facility] [id number]) Lumbar Spine Range of Motion Lumbar Spine Active Percentage Flexion 10 Extension 75 Rotation Left 50 Rotation Right 60 Lateral Flexion Left 60 Lateral Flexion Right 75 Comments tightness R w/L SB; pain in bakc and tightnes L w/R SB, PT-OP-L Special Tests Start: 11/17/23 08:55 Freq: Status: Active Protocol: Document 11/29/23 08:52 [facility] (Rec: 11/29/23 10:34 [facility] [id number]) Special Tests Lumbar Spine Special Tests Slump Test Results pos R Straight Leg Raise Test Results pos R; mild HS tightness L PT-OP-M Strength Start: 11/17/23 08:55 Freq: Status: Active Protocol: Document 11/29/23 08:52 [facility] (Rec: 11/29/23 10:34 [facility] [id number]) Hip Strength Hip Manual Muscle Testing Right Flexion (L2) 4- Good- Extension (S1) 4- Good- Abduction 5 Normal Adduction 5 Normal External Rotation 4- Good- Internal Rotation 4 Good Left Flexion (L2) 4- Good- Extension (S1) 4- Good- Abduction 4+ Good+ Adduction 5 Normal External Rotation 4 Good Internal Rotation 5 Normal Knee Strength Knee Manual Muscle Testing Right Flexion (S2) 5 Normal Extension (L3) 5 Normal Left Flexion (S2) 5 Normal Extension (L3) 5 Normal Ankle/Foot Strength Ankle and Foot Manual Muscle Testing Right Dorsiflexion (L4) 5 Normal Plantarflexion (S1) 5 Normal Comments 20 heel raises B -R feels fatigued w/it though Left Dorsiflexion (L4) 5 Normal Plantarflexion (S1) 5 Normal PT-OP-Q Treatments Start: 11/17/23 08:55 Freq: Status: Active Protocol: Document 12/28/23 10:36 [facility] (Rec: 12/28/23 15:17 [facility] [id number]) Therapeutic Exercises Standing Exercises RDL Standing Exercise Name SL Side bilateral Reps/Minutes 2x15 Comments cues for hip hinge Therapeutic Activity Therapeutic Activity lifting Reps/Minutes 32 min Comments 1. working on lifting mechanics of box w/10-20#s in in from the floor 2. working on lifting from chair 10lbs w/hip hinge and squat strategies 3. working lifting over high surface (ASIS height) with work on press through LEs to engage glutes then segmental spinal return up. Mult reps needed pt shown the difference of good vs bad and use of model, pt sensation, PT demo to see how the bad options inc back strain PT-OP-T Assessment and Plan Start: 11/17/23 08:55 Freq: Status: Active Protocol: Document 12/28/23 10:36 [facility] (Rec: 12/28/23 15:17 [facility] [id number]) Physical Therapy Assessment Goals ROM Halfway Goal (LTG) Pt will improve flex of spine to at least to knees when PT blocking pt's pelvis to allow improved capacity for bending over LTG Duration 02/07/24 activity Short Term Goal (STG) Pt will demonstrate appropriate lifting mechanics and be able to lift a box w/20 # w/o inc pain STG Duration 12/29/23 Secretary Receptionist Goal (LTG) Pt will report return to typical heavy house and yard work w/o inc pain greater than 1/10 LTG Duration 02/07/24 strength Short Term Goal (STG) Pt will be indep w/HEP STG Duration 12/29/23 Secretary Receptionist Goal (LTG) Pt will score at least 5/5 on all LE MMT B and 3/5 in all planes of LPM and EFT of at least 4/5 to allow improved strength to do heavy activities at home. LTG Duration 02/07/24 Assessment Summary Assessment Pt did well with working on lifting position and was able to follow cues. Verbalized understanding w/lifting mechanics and hwo to accomidate different scenerios . Physical Therapy Plan Frequency and Duration Frequency of Treatment 1-2x/week Duration of treatment (weeks) 10 Plan of Care Start Date 11/29/23 Plan of Care End Date 02/07/24 Next Visit Focus/Plan Next Note Type Treatment Note Next Visit Plan Recheck LTR and pelvic tilts, continue SLS activities, add sliders and SLS to HEP EO. POC: cont to work on core and hip stability; manual to hips and innominate as neede and lumbar spine for R Sb
--- NOTE | 2024-01-04 11:30 | PT.OTN ---
Current Diagnoses Other chronic pain (01/04/24) Low back pain, unspecified (01/04/24) Other congenital malformations of spine, not associated with scoliosis (01/04/24) Abnormal posture (01/04/24) Weakness (01/04/24) Physical Therapy Treatment Note PT-OP-A Visit Information Start: 11/17/23 08:55 Freq: Status: Active Protocol: Document 01/04/24 10:35 [facility] (Rec: 01/04/24 10:44 [facility] [id number]) Out-Patient Physical Therapy Visit Information Visit Information Visit Type Progress Note Visit Note 05/23 Visit Start Time 10:37 Visit Stop Time 11:17 Visit Number 7 Number of CLINIC OFFICE ASSISTANT Visits 0 PT-OP-B Current Condition Start: 11/17/23 08:55 Freq: Status: Active Protocol: Document 11/29/23 08:52 [facility] (Rec: 11/29/23 10:34 [facility] [id number]) Current Condition History of Current Condition Onset Date decades (about 30 years ago) Current Complaints LBP w/L L5 sacralization History of Current Condition Pt reports he has a LB problem that is a once a year flare up and really bad about every 2 years and gets btter in a week or so. Typically after doing heavy lift etc. About 6 months ago, he couldn't trace it anyting and persisted for a couple months and was minor compared to other months and persisted to about 1 week ago. He twisted and reached behind himself. 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 He was excused from working there. He thinks this is at the root of this ongoing problem. He finds himself listing to one side when its bad to find a comfortable posiiton. He has asked for exercises in past and was given planks. he was doing them and hasn't recently . He would like to develop his back better with the likelihood that this transitional vertebra is the cause. He had a recent xray. When it was bothered most recently, sitting hurt the most and when hiking, it was better. the first flare up 30 years ago was when he shovelled snow for several hours. Pt likes to do heavy work around the house and has made him stear clear of it. He has history of B knee pain. Hx of blood clot in R calf in about 2019. occ has weakness in R LB when pain is worse. Thinks may have arthritis in hips d/t hx of hip soreness after >10 min hikes years ago. 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 Left L5 sacralization. 5 nonrib-bearing vertebrae are present. Minimal scoliosis. No vertebral body compression fractures. No suspicious bony lesions. Small vertebral body osteophytes, increased. Soft tissues: Overlying bowel gas pattern is normal. No suspicious soft tissue calcifications. Small left kidney stone. Oblique images: No pars defects. IMPRESSION: No compression fracture. 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 Treatment Goals Patient/Caregiver Goals Have exercise program to work on to help keep back safe, be able to do heavy work around the house without flare up PT-OP-C Subjective Start: 11/17/23 08:55 Freq: Status: Active Protocol: Document 01/04/24 10:35 [facility] (Rec: 01/04/24 10:44 [facility] [id number]) OP-PT Subjective Patient Comments Patient Comments Pt reports his back has been pretty good. He notices a little tweak when jogging into clinic today but normally doesn't jog. Now feels it a little w/ext and R rot now. PT-OP-D Balance Start: 11/17/23 08:55 Freq: Status: Active Protocol: Document 11/29/23 08:52 [facility] (Rec: 11/29/23 10:34 [facility] [id number]) Balance Tests Single Limb Standing Single Limb- Right 19 sec Single Limb- Left >30 sec w/inc deviation PT-OP-G Mobility & Gait Start: 11/17/23 08:55 Freq: Status: Active Protocol: Document 11/29/23 08:52 [facility] (Rec: 11/29/23 10:34 [facility] [id number]) OP Gait Assessment Comments Gait Comments dec stance time time LLE, dec wt acceptance and inc trunk collapse w/wt acceptance LLE PT-OP-J Posture/Palpation/Skin Start: 11/17/23 08:55 Freq: Status: Active Protocol: Document 01/04/24 10:35 [facility] (Rec: 01/04/24 10:48 [facility] [id number]) Posture Evaluation Julissa Postural Classification System Elbow Flexion Test 4 Lumbar Protective Mechanism Left AP 4 Lumbar Protective Mechanism Right AP 4 Lumbar Protective Mechanism Left PA 3 Lumbar Protective Mechanism Right PA 3 PT-OP-K Range of Motion Start: 11/17/23 08:55 Freq: Status: Active Protocol: Document 11/29/23 08:52 [facility] (Rec: 11/29/23 10:34 [facility] [id number]) Lumbar Spine Range of Motion Lumbar Spine Active Percentage Flexion 10 Extension 75 Rotation Left 50 Rotation Right 60 Lateral Flexion Left 60 Lateral Flexion Right 75 Comments tightness R w/L SB; pain in bakc and tightnes L w/R SB, PT-OP-L Special Tests Start: 11/17/23 08:55 Freq: Status: Active Protocol: Document 11/29/23 08:52 [facility] (Rec: 11/29/23 10:34 [facility] [id number]) Special Tests Lumbar Spine Special Tests Slump Test Results pos R Straight Leg Raise Test Results pos R; mild HS tightness L PT-OP-M Strength Start: 11/17/23 08:55 Freq: Status: Active Protocol: Document 01/04/24 10:35 [facility] (Rec: 01/04/24 10:48 [facility] [id number]) Hip Strength Hip Manual Muscle Testing Right Flexion (L2) 4+ Good+ Extension (S1) 5 Normal Abduction 4+ Good+ Adduction 5 Normal External Rotation 5 Normal Internal Rotation 5 Normal Left Flexion (L2) 4+ Good+ Extension (S1) 5 Normal Abduction 5 Normal Adduction 5 Normal External Rotation 5 Normal Internal Rotation 5 Normal Knee Strength Knee Manual Muscle Testing Right Flexion (S2) 5 Normal Extension (L3) 5 Normal Left Flexion (S2) 5 Normal Extension (L3) 5 Normal PT-OP-Q Treatments Start: 11/17/23 08:55 Freq: Status: Active Protocol: Document 01/04/24 10:35 [facility] (Rec: 01/04/24 10:44 [facility] [id number]) Therapeutic Exercises Supine Exercises LTR Supine Exercise Name segmental control Side bilateral Reps/Minutes 5 Comments cued breath and slower pacing range can stabilize with breath allowance bridge Supine Exercise Name w/alt march Side bilateral Reps/Minutes 10 core Supine Exercise Name DL isometric Side bilateral Reps/Minutes 30 sec Sidelying Exercises clamshell Sidelying Exercise Name sideplank w/clam Side bilateral Equipment Used no band ; Lvl 3 band Reps/Minutes 15 ea resistance B Standing Exercises bottoms up Side bilateral Reps/Minutes 10 sec x10 Comments on step squat Standing Exercise Name w/7# B Side bilateral RDL Standing Exercise Name SL Side bilateral Equipment Used 7# wt into opp leg Reps/Minutes 10 Comments cues for hip hinge Other Exercises cat/cow Other Exercise Name angry cat w/sit back Reps/Minutes 10 Self-Care/Home Management Treatment Education Other Education 8 min: discussion of HEP and reset of it w/progression of exercises to focus on core and lumbar flex. Edu on what mm each exercise works on and its importance. PT-OP-T Assessment and Plan Start: 11/17/23 08:55 Freq: Status: Active Protocol: Document 01/04/24 10:35 [facility] (Rec: 01/04/24 10:44 [facility] [id number]) Physical Therapy Assessment Goals ROM Fdc Goal (LTG) Pt will improve flex of spine to at least to knees when PT blocking pt's pelvis to allow improved capacity for bending over 01/04-still limited LTG Duration 02/07/24 activity Short Term Goal (STG) Pt will demonstrate appropriate lifting mechanics and be able to lift a box w/20 # w/o inc pain STG Duration achieved 01/04 Fdc Goal (LTG) Pt will report return to typical heavy house and yard work w/o inc pain greater than 1/10 01/04-hasn't been doing much house or yardwork LTG Duration 02/07/24 strength Short Term Goal (STG) Pt will be indep w/HEP STG Duration achieved advancinga s able Fdc Goal (LTG) Pt will score at least 5/5 on all LE MMT B and 3/5 in all planes of LPM and EFT of at least 4/5 to allow improved strength to do heavy activities at home. 01/04-improving LTG Duration 02/07/24 Assessment Summary Assessment Pt is making excellent progress w/ PT and shwoing much improved strength and stability. He is not reporting much pain recently unless he sleeps on his stomach but has been given ways to prop himself to dec this. He would bneefit from cont PT to finalize HEP Physical Therapy Plan Frequency and Duration Frequency of Treatment 1-2x/week Duration of treatment (weeks) 10 Plan of Care Start Date 11/29/23 Plan of Care End Date 02/07/24 Next Visit Focus/Plan Next Note Type Treatment Note Next Visit Plan check on last completed exercises for HEP and any other cocnerns for pt
--- NOTE | 2024-01-12 10:36 | PT.OTN ---
Current Diagnoses Other chronic pain (01/12/24) Low back pain, unspecified (01/12/24) Other congenital malformations of spine, not associated with scoliosis (01/12/24) Abnormal posture (01/12/24) Weakness (01/12/24) Physical Therapy Treatment Note PT-OP-A Visit Information Start: 11/17/23 08:55 Freq: Status: Active Protocol: Document 01/12/24 09:50 [facility] (Rec: 01/12/24 10:36 [facility] [id number]) Out-Patient Physical Therapy Visit Information Visit Information Visit Type Treatment Note Visit Note 12/24 Visit Start Time 09:51 Visit Stop Time 10:30 Visit Number 8 Number of PAPER MACHINE SUPERVISOR Visits 0 PT-OP-B Current Condition Start: 11/17/23 08:55 Freq: Status: Active Protocol: Document 11/29/23 08:52 [facility] (Rec: 11/29/23 10:34 [facility] [id number]) Current Condition History of Current Condition Onset Date decades (about 30 years ago) Current Complaints LBP w/L L5 sacralization History of Current Condition Pt reports he has a LB problem that is a once a year flare up and really bad about every 2 years and gets btter in a week or so. Typically after doing heavy lift etc. About 6 months ago, he couldn't trace it anyting and persisted for a couple months and was minor compared to other months and persisted to about 1 week ago. He twisted and reached behind himself. 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 He was excused from working there. He thinks this is at the root of this ongoing problem. He finds himself listing to one side when its bad to find a comfortable posiiton. He has asked for exercises in past and was given planks. he was doing them and hasn't recently . He would like to develop his back better with the likelihood that this transitional vertebra is the cause. He had a recent xray. When it was bothered most recently, sitting hurt the most and when hiking, it was better. the first flare up 30 years ago was when he shovelled snow for several hours. Pt likes to do heavy work around the house and has made him stear clear of it. He has history of B knee pain. Hx of blood clot in R calf in about 2019. occ has weakness in R LB when pain is worse. Thinks may have arthritis in hips d/t hx of hip soreness after >10 min hikes years ago. 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 Left L5 sacralization. 5 nonrib-bearing vertebrae are present. Minimal scoliosis. No vertebral body compression fractures. No suspicious bony lesions. Small vertebral body osteophytes, increased. Soft tissues: Overlying bowel gas pattern is normal. No suspicious soft tissue calcifications. Small left kidney stone. Oblique images: No pars defects. IMPRESSION: No compression fracture. 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 Treatment Goals Patient/Caregiver Goals Have exercise program to work on to help keep back safe, be able to do heavy work around the house without flare up PT-OP-C Subjective Start: 11/17/23 08:55 Freq: Status: Active Protocol: Document 01/12/24 09:50 [facility] (Rec: 01/12/24 10:36 [id number]-PT Subjective Patient Comments Patient Comments Pt reports his back is okay as long as he doesn't sleep in a bd position PT-OP-D Balance Start: 11/17/23 08:55 Freq: Status: Active Protocol: Document 11/29/23 08:52 [facility] (Rec: 11/29/23 10:34 [id number] Balance Tests Single Limb Standing Single Limb- Right 19 sec Single Limb- Left >30 sec w/inc deviation PT-OP-G Mobility & Gait Start: 11/17/23 08:55 Freq: Status: Active Protocol: Document 11/29/23 08:52 [facility] (Rec: 11/29/23 10:34 [id number] OP Gait Assessment Comments Gait Comments dec stance time time LLE, dec wt acceptance and inc trunk collapse w/wt acceptance LLE PT-OP-J Posture/Palpation/Skin Start: 11/17/23 08:55 Freq: Status: Active Protocol: Document 01/04/24 10:35 [facility] (Rec: 01/04/24 10:48 [facility] [id number]) Posture Evaluation Julissa Postural Classification System Elbow Flexion Test 4 Lumbar Protective Mechanism Left AP 4 Lumbar Protective Mechanism Right AP 4 Lumbar Protective Mechanism Left PA 3 Lumbar Protective Mechanism Right PA 3 PT-OP-K Range of Motion Start: 11/17/23 08:55 Freq: Status: Active Protocol: Document 11/29/23 08:52 [facility] (Rec: 11/29/23 10:34 [facility] [id number]) Lumbar Spine Range of Motion Lumbar Spine Active Percentage Flexion 10 Extension 75 Rotation Left 50 Rotation Right 60 Lateral Flexion Left 60 Lateral Flexion Right 75 Comments tightness R w/L SB; pain in bakc and tightnes L w/R SB, PT-OP-L Special Tests Start: 11/17/23 08:55 Freq: Status: Active Protocol: Document 11/29/23 08:52 [facility] (Rec: 11/29/23 10:34 [facility] [id number]) Special Tests Lumbar Spine Special Tests Slump Test Results pos R Straight Leg Raise Test Results pos R; mild HS tightness L PT-OP-M Strength Start: 11/17/23 08:55 Freq: Status: Active Protocol: Document 01/04/24 10:35 [facility] (Rec: 01/04/24 10:48 [facility] [id number]) Hip Strength Hip Manual Muscle Testing Right Flexion (L2) 4+ Good+ Extension (S1) 5 Normal Abduction 4+ Good+ Adduction 5 Normal External Rotation 5 Normal Internal Rotation 5 Normal Left Flexion (L2) 4+ Good+ Extension (S1) 5 Normal Abduction 5 Normal Adduction 5 Normal External Rotation 5 Normal Internal Rotation 5 Normal Knee Strength Knee Manual Muscle Testing Right Flexion (S2) 5 Normal Extension (L3) 5 Normal Left Flexion (S2) 5 Normal Extension (L3) 5 Normal PT-OP-Q Treatments Start: 11/17/23 08:55 Freq: Status: Active Protocol: Document 01/12/24 09:50 [facility] (Rec: 01/12/24 10:36 [facility] [id number]) Therapeutic Exercises Supine Exercises bridge Supine Exercise Name w/alt knee ext Side bilateral Reps/Minutes 8 core Supine Exercise Name DL isometric Side bilateral Reps/Minutes 30 sec Comments cues for breathing Prone Exercises plank Prone Exercise Name forearm and feet Reps/Minutes 30 sec Sidelying Exercises clamshell Sidelying Exercise Name sideplank w/clam Side bilateral Equipment Used Lvl 3 band Reps/Minutes 15 ea B Sitting Exercises stretch Sitting Exercise Name plantar fascia Side right Reps/Minutes 30 sec Standing Exercises stretch Standing Exercise Name calf on step Side bilateral Reps/Minutes 1 min bottoms up Side bilateral Reps/Minutes 10 sec x10 Comments on step squat Standing Exercise Name w/7# B Side bilateral Reps/Minutes 15 Comments cues for inc range RDL Standing Exercise Name SL Side bilateral Equipment Used 7# wt into opp leg Reps/Minutes 10 Comments cues for hip hinge & slow movement Other Exercises cat/cow Other Exercise Name angry cat w/sit back Reps/Minutes 10 sec x5 Manual Therapy Treatment Soft Tissue Mobilization LB Body Location ES LS Mobilization Type Rolling Intensity/Depth Moderate Comments quadruped lean back Joint Mobilizations lumbar Comments L1-2, L2-3, L3-4, L4-5 gapping w/cat sit back Self-Care/Home Management Treatment Education Other Education 10 min: discuss w/acut flare of any body part to ice and do gentle comfortable range. edu to avoid shoes hurting foot as this will affect his back if he is moving differently. edu to work on strength exercises for next few weeks and monitor for pain. PT-OP-T Assessment and Plan Start: 11/17/23 08:55 Freq: Status: Active Protocol: Document 01/12/24 09:50 [facility] (Rec: 01/12/24 10:36 [facility] [id number]) Physical Therapy Assessment Goals ROM Detention Goal (LTG) Pt will improve flex of spine to at least to knees when PT blocking pt's pelvis to allow improved capacity for bending over 01/04-still limited LTG Duration 02/07/24 activity Short Term Goal (STG) Pt will demonstrate appropriate lifting mechanics and be able to lift a box w/20 # w/o inc pain STG Duration achieved 01/04 Detention Goal (LTG) Pt will report return to typical heavy house and yard work w/o inc pain greater than 1/10 01/04-hasn't been doing much house or yardwork LTG Duration 02/07/24 strength Short Term Goal (STG) Pt will be indep w/HEP STG Duration achieved advancinga s able Detention Goal (LTG) Pt will score at least 5/5 on all LE MMT B and 3/5 in all planes of LPM and EFT of at least 4/5 to allow improved strength to do heavy activities at home. 01/04-improving LTG Duration 02/07/24 Assessment Summary Assessment pt did well with exercises w/ min cues. He did have improved form overal and had improved flex ROM w/manual Physical Therapy Plan Frequency and Duration Frequency of Treatment 1-2x/week Duration of treatment (weeks) 10 Plan of Care Start Date 11/29/23 Plan of Care End Date 02/07/24 Next Visit Focus/Plan Next Note Type Discharge Summary Next Visit Plan review exercises and address concerns as needed
--- NOTE | 2024-02-16 14:34 | PT.OTN ---
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 Typically after doing heavy lift etc. About 6 months ago, he couldn't trace it anyting and persisted for a couple months and was minor compared to other months and persisted to about 1 week ago. He twisted and reached behind himself. 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 He was excused from working there. He thinks this is at the root of this ongoing problem. He finds himself listing to one side when its bad to find a comfortable posiiton. He has asked for exercises in past and was given planks. he was doing them and hasn't recently . He would like to develop his back better with the likelihood that this transitional vertebra is the cause. He had a recent xray. When it was bothered most recently, sitting hurt the most and when hiking, it was better. the first flare up 30 years ago was when he shovelled snow for several hours. Pt likes to do heavy work around the house and has made him stear clear of it. He has history of B knee pain. Hx of blood clot in R calf in about 2019. occ has weakness in R LB when pain is worse. Thinks may have arthritis in hips d/t hx of hip soreness after >10 min hikes years ago. 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 Left L5 sacralization. 5 nonrib-bearing vertebrae are present. Minimal scoliosis. No vertebral body compression fractures. No suspicious bony lesions. Small vertebral body osteophytes, increased. Soft tissues: Overlying bowel gas pattern is normal. No suspicious soft tissue calcifications. Small left kidney stone. Oblique images: No pars defects. IMPRESSION: No compression fracture. 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 Treatment Goals Patient/Caregiver Goals Have exercise program to work on to help keep back safe, be able to do heavy work around the house without flare up PT-OP-C Subjective Start: 11/17/23 08:55 Freq: Status: Active Protocol: Document 02/16/24 09:05 [facility] (Rec: 02/16/24 09:51 [facility] [id number]) OP-PT Subjective Patient Comments Patient Comments Pt reports back has been good. He was a little sore after a walkyeserday and was a little sore. It was a 2.5 hr walk. PT-OP-D Balance Start: 11/17/23 08:55 Freq: Status: Active Protocol: Document 11/29/23 08:52 [facility] (Rec: 11/29/23 10:34 [facility] [id number]) Balance Tests Single Limb Standing Single Limb- Right 19 sec Single Limb- Left >30 sec w/inc deviation PT-OP-G Mobility & Gait Start: 11/17/23 08:55 Freq: Status: Active Protocol: Document 11/29/23 08:52 [facility] (Rec: 11/29/23 10:34 [facility] [id number]) OP Gait Assessment Comments Gait Comments dec stance time time LLE, dec wt acceptance and inc trunk collapse w/wt acceptance LLE PT-OP-J Posture/Palpation/Skin Start: 11/17/23 08:55 Freq: Status: Active Protocol: Document 02/16/24 09:05 [facility] (Rec: 02/16/24 09:51 [facility] [id number]) Posture Evaluation [facility] Postural Classification System Lumbar Protective Mechanism Left AP 5 Lumbar Protective Mechanism Right AP 4 Lumbar Protective Mechanism Left PA 5 Lumbar Protective Mechanism Right PA 3 PT-OP-K Range of Motion Start: 11/17/23 08:55 Freq: Status: Active Protocol: Document 02/16/24 09:05 [facility] (Rec: 02/16/24 09:51 [facility] [id number]) Lumbar Spine Range of Motion Lumbar Spine Active Percentage Flexion 50 Extension 80 Rotation Left 80 Rotation Right 80 Lateral Flexion Left 90 Lateral Flexion Right 90 PT-OP-L Special Tests Start: 11/17/23 08:55 Freq: Status: Active Protocol: Document 11/29/23 08:52 [facility] (Rec: 11/29/23 10:34 [facility] [id number]) Special Tests Lumbar Spine Special Tests Slump Test Results pos R Straight Leg Raise Test Results pos R; mild HS tightness L PT-OP-M Strength Start: 11/17/23 08:55 Freq: Status: Active Protocol: Document 02/16/24 09:05 [facility] (Rec: 02/16/24 09:51 [facility] [id number]) Hip Strength Hip Manual Muscle Testing Right Flexion (L2) 5 Normal Extension (S1) 5 Normal Abduction 5 Normal Adduction 5 Normal External Rotation 5 Normal Internal Rotation 5 Normal Left Flexion (L2) 5 Normal Extension (S1) 5 Normal Abduction 5 Normal Adduction 5 Normal External Rotation 5 Normal Internal Rotation 5 Normal PT-OP-Q Treatments Start: 11/17/23 08:55 Freq: Status: Active Protocol: Document 02/16/24 09:05 [facility] (Rec: 02/16/24 09:51 [facility] [id number]) Therapeutic Exercises Prone Exercises plank Prone Exercise Name forearm and feet w/alt hip ext Side bilateral Reps/Minutes 8 Sidelying Exercises side plank Sidelying Exercise Name w/hip abd in knee flex and ext bottom leg attempts sideplank Sidelying Exercise Name forearm and feet Side bilateral clamshell Sidelying Exercise Name sideplank w/clam Side bilateral Reps/Minutes 10 Standing Exercises stretch Standing Exercise Name figure 4 Side right bottoms up Side bilateral Reps/Minutes 10 sec x2 Comments ground RDL Standing Exercise Name SL Side bilateral Reps/Minutes 10 Comments cues for hip hinge & slow movement Therapeutic Activity Therapeutic Activity garden Comments 8 min: going over kneel for weeding, hip hinge and squat to pull for weeding. working on mechanics for upcoming garden work. Self-Care/Home Management Treatment Education Other Education 17 min: review of doing core every other day and stretching as needed but also regularly at least every other day. Edu that can switch up core exercises but to make sure does some weekly. discussed use of stretching throughout activities if feel sore. Edu on supplements like glucosamine/chondrotin and topicals for pain (CBD, arnica etc) and educated to talk to doc re: starting any prior to starting. PT-OP-T Assessment and Plan Start: 11/17/23 08:55 Freq: Status: Active Protocol: Document 02/16/24 09:05 [facility] (Rec: 02/16/24 09:51 [facility] [id number]) Physical Therapy Assessment Goals ROM Intermediate Goal (LTG) Pt will improve flex of spine to at least to knees when PT blocking pt's pelvis to allow improved capacity for bending over 01/04-still limited LTG Duration improved to about 3 in above knee activity Short Term Goal (STG) Pt will demonstrate appropriate lifting mechanics and be able to lift a box w/20 # w/o inc pain STG Duration achieved 01/04 [employer] Goal (LTG) Pt will report return to typical heavy house and yard work w/o inc pain greater than 1/10 01/04-hasn't been doing much house or yardwork LTG Duration achieved w/3 hrs volunteer work in [employer] strength Short Term Goal (STG) Pt will be indep w/HEP STG Duration achieved advancinga s able Intermediate Goal (LTG) Pt will score at least 5/5 on all LE MMT B and 3/5 in all planes of LPM and EFT of at least 4/5 to allow improved strength to do heavy activities at home. 01/04-improving LTG Duration achieved 4/4 Assessment Summary Assessment Pt has met goals and is indep w/HEP at this time and has had significant edu on body mechanics and demonstrates understanding in past sesionsw /demo and w/verbal follow up. He was shown progressions for variations of core exercisesa nd pt understood. DC to HEP at this time. Physical Therapy Plan Frequency and Duration Frequency of Treatment 1x Plan of Care Start Date 02/16/24 Plan of Care End Date 02/16/24 Therapeutic Interventions Therapeutic Interventions Balance Training,Gait Training ,Home Exercise Program,Joint Mobilizations,Manual Therapy, Neuromuscular Re-education, Patient/Caregiver Education, Self-Care/Home Management,Soft Tissue Mobilization,Taping, Therapeutic Activities, Therapeutic Exercises Modalities Cold Pack/Ice Massage,Electric Stimulation,Hot Packs, Ultrasound Discharge Physical Therapy Discharge Reasons Goals Met
== END 2024-02-17 10:35 | disposition home or self-care (01) ==
LOC: PHYS 09:00
PROVIDERS: Family Provider Family Medicine; PCP Family Medicine; Referring Provider Physician Assistant; Visit Provider Physician Assistant
DX: Q76.49 Other congenital malformations of spine, not associated with scoliosis (principal); M54.50 Low back pain, unspecified; G89.29 Other chronic pain; R53.1 Weakness; R29.3 Abnormal posture
CPT/HCPCS: 97110; 97140; 97161; 97530; 97535

== ENCOUNTER → 2024-06-07 09:21 | Outpatient (CLI) | payer MEDICARE, OTHER, SELFPAY ==
[2024-06-07 10:10] LABS: Add Manual Diff / Slide Review NO; Basophils Absolute Auto 0 /uL (0-100); Basophils Percent Auto 0.5 % (0-2); Eosinophils Absolute Auto 200 /uL (0-450); Eosinophils Percent Auto 3.9 % (2-4); Hematocrit 35.6 % (41-53); Hemoglobin 12.3 g/dL (13.5-17.5); Lymphocytes Absolute Auto 1300 /uL (1100-4500); Lymphocytes Percent Auto 24.3 % (25-40); Mean Corpuscular HGB Conc 34.4 % (30-36); Mean Corpuscular Hemoglobin 34.8 PG (26-34); Mean Corpuscular Volume 100.9 fL (80-100); Monocytes Absolute Auto 600 /uL (0-900); Monocytes Percent Auto 10.8 % (3-14); Neutrophils Absolute Auto 3200 /uL (1500-7000); Neutrophils Percent Auto 60.5 % (50-75); Platelet Count 218 X10^3/uL (150-400); Red Blood Cell Count 3.53 X10^6/uL (4.5-5.9); Red Cell Distribution Width 12.8 % (11.6-14.8); White Blood Cell Count 5.3 X10^3/uL (4.5-11.0)
[2024-06-07 11:37] LABS: Microalbumin Urine Random < 0.6 mg/dL (0-1.6)
[2024-06-07 11:53] LABS: Alanine Aminotransferase 44 IU/L (<50); Albumin 4.6 g/dL (3.5-5.0); Albumin Globulin Ratio 2.1 (1.0-2.8); Alkaline Phosphatase 55 U/L (38-126); Aspartate Aminotransferase 43 IU/L (17-59); BUN Creatinine Ratio 27.6 (6-22); Bilirubin Total 0.7 mg/dL (0.2-1.3); Blood Urea Nitrogen 47 mg/dL (9-20); Calcium 9.9 mg/dL (8.4-10.2); Carbon Dioxide 25 mmol/L (22-32); Chloride 107 mmol/L (98-107); Cholesterol 148 mg/dL (140-199); Estimated Glomerular Filt Rate 44 mL/min (>60); Globulin 2.2 g/dL (1.7-4.1); Glucose 104 mg/dL (80-110); HDL Cholesterol 51 mg/dL (40-60); HEMOLYSIS < 15 (0-50); LDL Cholesterol Calculated 73 mg/dL (<100); Potassium 4.8 mmol/L (3.4-5.1); Sodium 139 mmol/L (137-145); Total Protein 6.8 g/dL (6.3-8.2); Triglycerides 119 mg/dL (35-150)
[2024-06-07 12:27] LABS: Prostate Specific Antigen Scrn 0.611 ng/mL (0.1-4.0)
[2024-06-07 13:08] LABS: Hemoglobin A1C% w Est Avg Glu 5.4 % (4.0-6.0)
[2024-06-07 15:45] LABS: Hep C Virus Ab w/Reflex Quant NEGATIVE s/c (NEGATIVE)
[2024-06-09 06:10] LABS: Apolipoprotein B 67 mg/dL (<90)
== END ==
PROVIDERS: Family Provider Family Medicine; PCP Family Medicine; Referring Provider Family Medicine; Visit Provider Family Medicine
DX: Z00.00 Encounter for general adult medical examination without abnormal findings (principal); E78.5 Hyperlipidemia, unspecified; R76.0 Raised antibody titer; I10 Essential (primary) hypertension; Z12.5 Encounter for screening for malignant neoplasm of prostate
CPT/HCPCS: 36415; 80053; 80061; 82043; 82172; 82570; 83036; 84443; 85025; 86803; G0103

== ENCOUNTER → 2024-07-03 08:21 | Outpatient (CLI) | payer MEDICARE, OTHER, SELFPAY ==
[2024-07-03 09:47] LABS: Add Manual Diff / Slide Review NO; Basophils Absolute Auto 0 /uL (0-100); Basophils Percent Auto 0.6 % (0-2); Eosinophils Absolute Auto 200 /uL (0-450); Eosinophils Percent Auto 4.1 % (2-4); Hematocrit 35.9 % (41-53); Hemoglobin 12.3 g/dL (13.5-17.5); Lymphocytes Absolute Auto 1500 /uL (1100-4500); Lymphocytes Percent Auto 30.8 % (25-40); Mean Corpuscular HGB Conc 34.4 % (30-36); Mean Corpuscular Hemoglobin 35.3 PG (26-34); Mean Corpuscular Volume 102.6 fL (80-100); Monocytes Absolute Auto 500 /uL (0-900); Monocytes Percent Auto 10.9 % (3-14); Neutrophils Absolute Auto 2700 /uL (1500-7000); Neutrophils Percent Auto 53.6 % (50-75); Platelet Count 210 X10^3/uL (150-400); Red Cell Distribution Width 13.3 % (11.6-14.8)
[2024-07-03 10:19] LABS: Alanine Aminotransferase 53 IU/L (<50); Albumin 4.1 g/dL (3.5-5.0); Albumin Globulin Ratio 1.7 (1.0-2.8); Alkaline Phosphatase 48 U/L (38-126); Aspartate Aminotransferase 43 IU/L (17-59); Bilirubin Total 0.7 mg/dL (0.2-1.3); Blood Urea Nitrogen 27 mg/dL (9-20); Calcium 9.2 mg/dL (8.4-10.2); Carbon Dioxide 25 mmol/L (22-32); Chloride 106 mmol/L (98-107); Estimated Glomerular Filt Rate > 60 mL/min (>60); Globulin 2.4 g/dL (1.7-4.1); Glucose 94 mg/dL (80-110); Potassium 4.6 mmol/L (3.4-5.1); Sodium 137 mmol/L (137-145); Total Protein 6.5 g/dL (6.3-8.2)
[2024-07-03 10:21] LABS: HEMOLYSIS < 15 (0-50)
[2024-07-03 14:25] LABS: Vitamin B12 602 pg/mL (239-931)
== END ==
PROVIDERS: Family Provider Family Medicine; PCP Family Medicine; Referring Provider Family Medicine; Visit Provider Family Medicine
DX: E78.5 Hyperlipidemia, unspecified (principal); I10 Essential (primary) hypertension; D64.9 Anemia, unspecified
CPT/HCPCS: 36415; 80053; 82607; 85025

== ENCOUNTER → 2024-08-09 11:25 | Outpatient (CLI) | payer MEDICARE, OTHER, SELFPAY ==
--- NOTE | 2024-08-09 11:26 | DI.RAD.S_ITS ---
PROCEDURE: XR KNEE LT 3V INDICATIONS: left knee pain and right ankle TECHNIQUE: 3 views of the knee were acquired. COMPARISON: [facility], , XR KNEE LT 3V, 06/06/2023, 15:44. FINDINGS: Bones: Mild degenerative changes medial and the patellofemoral compartment. No left knee effusion. No acute fracture or dislocation. IMPRESSION: Degenerative changes , unchanged from prior exam. Dictated by: Lora Lorenzo M.D. on 08/09/2024 at 16:27 Approved by: Lora Lorenzo M.D. on 08/09/2024 at 16:28
--- NOTE | 2024-08-09 11:26 | DI.RAD.S_ITS ---
PROCEDURE: XR ANKLE RT MIN 3V INDICATIONS: left knee pain and right ankle TECHNIQUE: 3 views of the ankle were acquired. COMPARISON: None. FINDINGS: Bones: Small ossification about the medial malleolus, present in prior injury. Posterior and plantar calcaneus enthesophyte. No acute fracture or dislocation. Joint spaces are well maintained. Soft tissues: No tibiotalar joint effusion. Achilles tendon appears normal. IMPRESSION: No acute bony abnormality or significant effusion. Dictated by: Lora Lorenzo M.D. on 08/09/2024 at 16:25 Approved by: Lora Lorenzo M.D. on 08/09/2024 at 16:27
== END ==
PROVIDERS: Family Provider Family Medicine; PCP Family Medicine; Referring Provider Family Medicine; Visit Provider Family Medicine
DX: M25.571 Pain in right ankle and joints of right foot (principal); M25.562 Pain in left knee; I10 Essential (primary) hypertension
CPT/HCPCS: 73562; 73610

== ENCOUNTER → 2024-10-08 14:18 | Outpatient (CLI) | payer MEDICARE, OTHER, SELFPAY ==
[2024-10-08 14:50] LABS: Add Manual Diff / Slide Review NO; Basophils Absolute Auto 0 /uL (0-100); Basophils Percent Auto 0.6 % (0-2); Eosinophils Absolute Auto 200 /uL (0-450); Hematocrit 42.7 % (41-53); Hemoglobin 14.4 g/dL (13.5-17.5); Lymphocytes Absolute Auto 1600 /uL (1100-4500); Mean Corpuscular HGB Conc 33.7 % (30-36); Mean Corpuscular Hemoglobin 34.2 PG (26-34); Mean Corpuscular Volume 101.5 fL (80-100); Monocytes Absolute Auto 600 /uL (0-900); Monocytes Percent Auto 8.6 % (3-14); Neutrophils Absolute Auto 4300 /uL (1500-7000); Neutrophils Percent Auto 63.8 % (50-75); Platelet Count 217 X10^3/uL (150-400); Red Blood Cell Count 4.21 X10^6/uL (4.5-5.9); Red Cell Distribution Width 12.7 % (11.6-14.8); White Blood Cell Count 6.7 X10^3/uL (4.5-11.0)
== END ==
PROVIDERS: Family Provider Family Medicine; PCP Family Medicine; Referring Provider Family Medicine; Visit Provider Family Medicine
DX: E11.9 Type 2 diabetes mellitus without complications (principal); D64.9 Anemia, unspecified
CPT/HCPCS: 36415; 85025

== ENCOUNTER → 2025-02-05 09:24 | Outpatient (CLI) | payer MEDICARE, OTHER, SELFPAY ==
[2025-02-05 14:46] LABS: Rubella Antibody IgG > 350.0 IU/mL (>15)
[2025-02-06 10:11] LABS: Rubeola Measles IgG > 300.0 AU/mL (Immune >16.4)
[2025-02-06 12:39] LABS: Mumps Virus IgG Antibody 78.5 AU/mL (Immune >10.9)
== END ==
PROVIDERS: Family Provider Family Medicine; PCP Family Medicine; Referring Provider Family Medicine; Visit Provider Family Medicine
DX: Z01.84 Encounter for antibody response examination (principal)
CPT/HCPCS: 36415; 86735; 86762; 86765

== ENCOUNTER → 2025-05-21 07:22 | Outpatient (CLI) | payer MEDICARE, OTHER, SELFPAY ==
[2025-05-21 08:45] LABS: Add Manual Diff / Slide Review NO; Hematocrit 40.8 % (41-53); Hemoglobin 14.2 g/dL (13.5-17.5); Lymphocytes Absolute Auto 1700 /uL (1100-4500); Mean Corpuscular HGB Conc 34.9 % (30-36); Mean Corpuscular Hemoglobin 34.6 PG (26-34); Mean Corpuscular Volume 99.3 fL (80-100); Platelet Count 205 X10^3/uL (150-400)
[2025-05-21 09:14] LABS: Alanine Aminotransferase 54 IU/L (<50); Albumin 4.7 g/dL (3.5-5.0); Albumin Globulin Ratio 2.0 (1.0-2.8); Alkaline Phosphatase 62 U/L (38-126); Blood Urea Nitrogen 39 mg/dL (9-20); Calcium 9.7 mg/dL (8.4-10.2); Carbon Dioxide 26 mmol/L (22-32); Chloride 104 mmol/L (98-107); Cholesterol 161 mg/dL (140-199); Estimated Glomerular Filt Rate 53 mL/min (>60); Globulin 2.3 g/dL (1.7-4.1); Glucose 109 mg/dL (70-99); HDL Cholesterol 48 mg/dL (40-60); HEMOLYSIS < 15 (0-50); Potassium 4.7 mmol/L (3.4-5.1); Sodium 137 mmol/L (137-145); Total Protein 7.0 g/dL (6.3-8.2); Triglycerides 102 mg/dL (35-150)
[2025-05-21 09:38] LABS: TSH w/ Reflex to FT4 1.08 uIU/mL (0.47-4.68)
[2025-05-21 10:53] LABS: Microalbumi Creatinin Ratio Ur 15.0 ug/mg CR (<30)
== END ==
PROVIDERS: Family Provider Family Medicine; PCP Family Medicine; Referring Provider Family Medicine; Visit Provider Family Medicine
DX: E78.5 Hyperlipidemia, unspecified (principal); Z12.5 Encounter for screening for malignant neoplasm of prostate; I10 Essential (primary) hypertension; D53.9 Nutritional anemia, unspecified
CPT/HCPCS: 36415; 80053; 80061; 82043; 82172; 82570; 84443; 85025; G0103

== ENCOUNTER → 2025-07-30 11:25 | Outpatient (CLI) | payer MEDICARE, OTHER, SELFPAY ==
--- NOTE | 2025-07-30 11:27 | DI.RAD.S_ITS ---
PROCEDURE: XR SHOULDER RT MIN 2V INDICATIONS: fall, pain TECHNIQUE: 3 views of the shoulder were acquired. COMPARISON: None. FINDINGS: Bones: No fractures or dislocations. No suspicious bony lesions. Visualized ribs appear intact. Soft tissues: No suspicious soft tissue calcifications. IMPRESSION: No acute bony abnormality. Dictated by: Deepthi Rivera MD, PhD on 07/31/2025 at 10:20 Approved by: Deepthi Rivera MD, PhD on 07/31/2025 at 10:21
== END ==
PROVIDERS: Family Provider Family Medicine; PCP Family Medicine; Referring Provider Family Medicine; Visit Provider Family Medicine
DX: M25.511 Pain in right shoulder (principal)
CPT/HCPCS: 73030